=== PATIENT | male | born 1980 | race Caucasian/White ===

== ENCOUNTER 2019-01-10 19:51 | Inpatient (IN) ==
--- NOTE | 2019-01-10 20:19 | XRay Report ---
XR chest 1V portable CLINICAL HISTORY: chest pain pain COMPARISON STUDY: No previous studies for comparison. FINDINGS: The bones soft tissues and hemidiaphragms are normal. The cardiomediastinal silhouette is n ormal. The lungs are clear. The pulmonary vasculature is normal. IMPRESSION: Negative chest. The above report was generated using voice recognition software. It may contain grammatical, syntax or spelling errors. Electronically signed by: Torsten Boston M.D. 01/10/2019 8:18 PM
[2019-01-10] MEDS ORDERED: MoRPHine SULFATE 4 MG/ML 1 ML CARP\\VIAL IV STA (20:23)
[2019-01-10] MEDS ORDERED: ONDANSETRON INJ 2 MG/ML 2 ML VIAL IV STA (20:23)
[2019-01-10] MEDS ORDERED: ACETAMINOPHEN 1,000 MG/100 ML VIAL IV STA (20:23)
[2019-01-10 20:24] LABS: Basophils # (auto) 0.02 K/uL (0-0.2); Basophils % (auto) 0.3 %; Eosinophils # (auto) 0.14 K/uL (0-0.5); Eosinophils % (auto) 1.9 %; Hematocrit (blood only) 37.5 % (42-52); Hemoglobin 13.2 g/dL (14.0-18.0); Immature Granulocytes # (auto) 0.02 K/uL (0.00-0.02); Immature Granulocytes % (auto) 0.3 %; Lymphocytes # (auto) 2.62 K/uL (1.2-3.4); Mean Corpuscular Hgb Conc 35.2 g/dL (32-36); Mean Corpuscular Volume 88.9 fL (80-100); Mean Platelet Volume 11.1 fL (7.4-10.4); Monocytes # (auto) 0.44 K/uL (0.11-0.59); Neutrophils # (auto) 4.04 K/uL (1.4-6.5); Neutrophils % (auto) 55.5 %; Platelet Count 160 K/uL (130-400); RDW Coefficient of Variation 12.9 % (11.5-14.5); RDW Standard Deviation 41.6 fL (36.4-46.3); Red Blood Count 4.22 M/uL (4.7-6.1); White Blood Count 7.28 K/uL (4.8-10.8)
[2019-01-10] MEDS ORDERED: SODIUM CHLORIDE 0.9% 500 ML IV SCH (20:30)
[2019-01-10 20:33] LABS: Partial Thromboplastin Ratio 0.9; Partial Thromboplastin Time 24.6 Seconds (21.0-31.0); Prothrombin Time 10.7 Seconds (9.0-12.0)
[2019-01-10 20:55] LABS: Albumin Level 3.9 gm/dl (3.4-5.0); Aspartate Aminotransferase 25 U/L (15-37); BUN Creatinine Ratio 20.8 (10-20); Blood Urea Nitrogen 24 mg/dl (7-18); Calcium 9.1 mg/dl (8.5-10.1); Carbon Dioxide 22 mmol/L (21-32); Chloride 109 mmol/L (98-107); Creatinine Clr Calc Pharmacy 100.7 ml/min; Est GFR (African American) 93.4; Est GFR (Non-African American) 80.6; Glucose 101 mg/dl (70-99); Sodium 140 mmol/L (136-145)
[2019-01-10 21:00] LABS: Alanine Aminotransferase 39 U/L (12-78); Alkaline Phosphatase 113 U/L (45-117); Bilirubin,Total 0.2 mg/dl (0.2-1); Globulin 3.8 gm/dl (2.5-4.0); Total Protein 7.7 gm/dl (6.4-8.2); Troponin I < 0.015 ng/ml (0-0.045)
[2019-01-10] MEDS ORDERED: OPTIRAY 320 125ml IV PRN (21:17)
--- NOTE | 2019-01-10 21:26 | CT Scan Report ---
CT angio chest PE protocol CT DOSE: 577.83 mGy.cm HISTORY: Chest pain. Dyspnea. Chest Pain, eval for PE, check aorta TECHNIQUE: Multiaxial CT images of the chest were performed following the intravenous administration of contrast to evaluate the pulmonary arteries. Maximal intensity projection images were also obtaine d. A dose lowering technique was utilized adhering to the principles of ALARA. COMPARISON STUDY: None FINDINGS: Thoracic aorta is normal in course and caliber. Pulmonary vasculature enhances appropriately. No major filling defect is appreciated. Moderate mediastinal and hilar adenopathy. Aortopulmonary nodes measure up to 1.5 cm. Precarinal node s measure up to 1.4 cm. Additional nodes are identified in the azygos esophageal recess and subcarina l regions. Shotty nodes are identified in the high axillary regions bilaterally. Lungs are considered clear. No focal infiltrative change. Minimal dependent basilar atelectatic perez e. Limited evaluation the upper abdomen is unremarkable. IMPRESSION: 1. Study is negative for pulmonary embolus. 2. Moderate mediastinal, hilar, and high axillary adenopathy. 3. These nodes should be closely monitored to exclude any possibility of developing neoplastic prema pathology. The above report was generated using voice recognition software. It may contain grammatical, syntax or spelling errors. Electronically signed by: Torsten Boston M.D. 01/10/2019 9:25 PM
[2019-01-10] MEDS ORDERED: methylPREDNISolone 60 MG in SYRINGE 1 ML IV STA (22:30)
[2019-01-10] MEDS ORDERED: ALBUT/IPRATROP 3MG/0.5MG NEB 3 ML VIAL NEB STA (22:30)
[2019-01-10] MEDS ORDERED: cefTRIAXone SODIUM 1,000 MG/50 ML BAG IV STA (22:30)
[2019-01-10] MEDS ORDERED: methylPREDNISolone 125 MG/2 ML VIAL ONE (22:34)
[2019-01-10 22:46] LABS: Troponin I < 0.015 ng/ml (0-0.045)
[2019-01-10] MEDS ORDERED: POTASSIUM CHLORIDE 20 MEQ TABCR PO STA (23:41)
[2019-01-10] MEDS ORDERED: NALOXONE HCL 0.4 MG/1 ML VIAL/CARP IV STA (23:53)
[2019-01-10] MEDS ORDERED: NALOXONE HCL 0.4 MG/1 ML VIAL/CARP ONE (23:53)
[2019-01-11 00:01] LABS: Magnesium 2.2 mg/dl (1.8-2.4)
--- NOTE | 2019-01-11 00:07 | Emergency Department Note ---
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 Methadone, Qual (Neg) Urine Barbiturates (Neg) Ur Phencyclidine (PCP) (Neg) U Amphetamin/Meth Scrn (Neg) MDMA (Ecstasy) Screen (Neg) U Benzodiazepines Scrn (Neg) Ur Cocaine Metabolite (Neg) U Marijuana (THC) Screen (Neg) Ethyl Alcohol mg/dL 121.1 H (0-3) mg/dl Influenza Type A (PCR) (Neg) Influenza Type B (PCR) (Neg) 01/11/19 01/11/19 01/11/19 Range/Units 04:15 04:20 06:03 WBC 3.82 L (4.8-10.8) K/uL RBC 4.18 L (4.7-6.1) M/uL Hgb 12.9 L (14.0-18.0) g/dL Hct 37.3 L (42-52) % MCV 89.2 (80-100) fL MCH 30.9 (25-34) pg MCHC 34.6 (32-36) g/dL RDW Std Deviation 42.9 (36.4-46.3) fL RDW Coeff of Ryan 13.2 (11.5-14.5) % Plt Count 162 (130-400) K/uL MPV 10.5 H (7.4-10.4) fL Immature Gran % (Auto) 0.3 % Neut % (Auto) 82.6 % Lymph % (Auto) 15.7 % [place] % (Auto) 0.8 % Eos % (Auto) 0.3 % Baso % (Auto) 0.3 % Immature Gran # (Auto) 0.01 (0.00-0.02) K/uL Neut # (Auto) 3.16 (1.4-6.5) K/uL Lymph # (Auto) 0.60 L (1.2-3.4) K/uL [place] # (Auto) 0.03 L (0.11-0.59) K/uL Eos # (Auto) 0.01 (0-0.5) K/uL Baso # (Auto) 0.01 (0-0.2) K/uL PT (9.0-12.0) Seconds INR (0.9-1.1) APTT (21.0-31.0) Seconds PTT Ratio ABG pH (7.35-7.45) ABG pCO2 (35-46) mmHg ABG pO2 (80-95) mm/Hg ABG HCO3 (19-24) mmol/L ABG O2 Saturation (90-95) % ABG Base Excess (-9-1.8) mEq/L Bob Test (Pos) Barometric Pressure mm/Hg Oxygen Given Sodium (136-145) mmol/L Potassium (3.5-5.1) mmol/L Chloride (98-107) mmol/L Carbon Dioxide (21-32) mmol/L Anion Gap (3-11) BUN (7-18) mg/dl Creatinine (0.6-1.4) mg/dl Est Cr Clr Drug Dosing ml/min Est GFR ( Amer) Est GFR (Non-Af Amer) BUN/Creatinine Ratio (10-20) Glucose (70-99) mg/dl Lactate (0.4-2.0) mmol/L Calcium (8.5-10.1) mg/dl Magnesium (1.8-2.4) mg/dl Total Bilirubin (0.2-1) mg/dl AST (15-37) U/L ALT (12-78) U/L Alkaline Phosphatase (45-117) U/L Ammonia (11-32) umol/L Troponin I (0-0.045) ng/ml Total Protein (6.4-8.2) gm/dl Albumin (3.4-5.0) gm/dl Globulin (2.5-4.0) gm/dl Albumin/Globulin Ratio (0.9-2) Lipase (73-393) U/L Urine Color Urine Appearance (Clear) Urine pH (4.5-7.5) Ur Specific [place] (1.000-1.030) Urine Protein (Negative) Urine Glucose (UA) (Negative) Urine Ketones (Negative) Urine Blood (Negative) Urine Nitrite (Negative) Urine Bilirubin (Negative) Urine Urobilinogen (Negative) Ur Leukocyte Esterase (Negative) Urine Opiates Screen Pos H (Neg) Ur Methadone, Qual Neg (Neg) Urine Barbiturates Neg (Neg) Ur Phencyclidine (PCP) Neg (Neg) U Amphetamin/Meth Scrn Neg (Neg) MDMA (Ecstasy) Screen Pos H (Neg) U Benzodiazepines Scrn Neg (Neg) Ur Cocaine Metabolite Neg (Neg) U Marijuana (THC) Screen Pos H (Neg) Ethyl Alcohol mg/dL (0-3) mg/dl Influenza Type A (PCR) Neg for Influ A (Neg) Influenza Type B (PCR) Neg for Influ B (Neg) 01/11/19 01/11/19 01/11/19 Range/Units 06:03 06:09 06:09 WBC (4.8-10.8) K/uL RBC (4.7-6.1) M/uL Hgb (14.0-18.0) g/dL Hct (42-52) % MCV (80-100) fL MCH (25-34) pg MCHC (32-36) g/dL RDW Std Deviation (36.4-46.3) fL RDW Coeff of Ryan (11.5-14.5) % Plt Count (130-400) K/uL MPV (7.4-10.4) fL Immature Gran % (Auto) % Neut % (Auto) % Lymph % (Auto) % [place] % (Auto) % Eos % (Auto) % Baso % (Auto) % Immature Gran # (Auto) (0.00-0.02) K/uL Neut # (Auto) (1.4-6.5) K/uL Lymph # (Auto) (1.2-3.4) K/uL [place] # (Auto) (0.11-0.59) K/uL Eos # (Auto) (0-0.5) K/uL Baso # (Auto) (0-0.2) K/uL PT (9.0-12.0) Seconds INR (0.9-1.1) APTT (21.0-31.0) Seconds PTT Ratio ABG pH 7.34 L (7.35-7.45) ABG pCO2 45 (35-46) mmHg ABG pO2 120 H (80-95) mm/Hg ABG HCO3 24 (19-24) mmol/L ABG O2 Saturation 98.3 H (90-95) % ABG Base Excess -2.2 (-9-1.8) mEq/L Bob Test Pos (Pos) Barometric Pressure 731.4 mm/Hg Oxygen Given 2.5L Sodium 139 (136-145) mmol/L Potassium 5.0 D (3.5-5.1) mmol/L Chloride 109 H (98-107) mmol/L Carbon Dioxide 23 (21-32) mmol/L Anion Gap 7.0 (3-11) BUN 17 (7-18) mg/dl Creatinine 0.95 (0.6-1.4) mg/dl Est Cr Clr Drug Dosing 114.1 ml/min Est GFR ( Amer) 116.4 Est GFR (Non-Af Amer) 100.4 BUN/Creatinine Ratio 18.0 (10-20) Glucose 141 H (70-99) mg/dl Lactate (0.4-2.0) mmol/L Calcium 9.0 (8.5-10.1) mg/dl Magnesium (1.8-2.4) mg/dl Total Bilirubin 0.1 L (0.2-1) mg/dl AST 20 (15-37) U/L ALT 34 (12-78) U/L Alkaline Phosphatase 111 (45-117) U/L Ammonia 26.8 (11-32) umol/L Troponin I (0-0.045) ng/ml Total Protein 7.7 (6.4-8.2) gm/dl Albumin 3.7 (3.4-5.0) gm/dl Globulin 4.0 (2.5-4.0) gm/dl Albumin/Globulin Ratio 0.9 (0.9-2) Lipase (73-393) U/L Urine Color Urine Appearance (Clear) Urine pH (4.5-7.5) Ur Specific [place] (1.000-1.030) Urine Protein (Negative) Urine Glucose (UA) (Negative) Urine Ketones (Negative) Urine Blood (Negative) Urine Nitrite (Negative) Urine Bilirubin (Negative) Urine Urobilinogen (Negative) Ur Leukocyte Esterase (Negative) Urine Opiates Screen (Neg) Ur Methadone, Qual (Neg) Urine Barbiturates (Neg) Ur Phencyclidine (PCP) (Neg) U Amphetamin/Meth Scrn (Neg) MDMA (Ecstasy) Screen (Neg) U Benzodiazepines Scrn (Neg) Ur Cocaine Metabolite (Neg) U Marijuana (THC) Screen (Neg) Ethyl Alcohol mg/dL (0-3) mg/dl Influenza Type A (PCR) (Neg) Influenza Type B (PCR) (Neg) Imaging Data Radiologist's Impression: Radiology results as stated below per my review and the radiologist's interpretation: XR chest 1V portable CLINICAL HISTORY: chest pain pain COMPARISON STUDY: No previous studies for comparison. FINDINGS: The bones soft tissues and hemidiaphragms are normal. The cardiomediastinal silhouette is normal. The lungs are clear. The pulmonary vasculature is normal. IMPRESSION: Negative chest. The above report was generated using voice recognition software. It may contain grammatical, syntax or spelling errors. Electronically signed by: Torsten Boston M.D. 01/10/2019 8:[address]: IMPRESSION: 1. Study is negative for pulmonary embolus. 2. Moderate mediastinal, hilar, and high axillary adenopathy. 3. These nodes should be closely monitored to exclude any possibility of de veloping neoplastic prema pathology. The above report was generated using voice recognition software. It may contain grammatical, syntax or spelling errors. Electronically signed by: Torsten Boston M.D. 01/10/2019 9:25 PM ECG Data Attestation: I personally reviewed and interpreted this ECG as follows: Indication: chest pain Rate (beats per minute): 84 Rhythm: normal sinus Findings: no PVC and no ST elevation Blood Pressure Blood Pressure Findings: Normal blood pressure Blood Pressure Disposition: did not require urgent referral MDM Narrative There is no leukocytosis or concerning anemia. No coagulopathy. Potassium is slightly low, no kidney failure. There is no evidence for hepatitis. EKG showed a sinus rhythm, no acute ischemia. Cardiac enzyme testing x2 is not consistent with acute cardiac injury. Lipase testing is normal. Chest x-ray did not show pneumonia or CHF, no pneumothorax. Chest CT shows moderate adenopathy. There was no evidence for aortic dissection, pneumonia or PE. The patient received a DuoNeb, IV Solu-Medrol. He was given IV ceftriaxone as antibiotic coverage. He received IV Zofran for nausea, IV saline for hydration, he was given IV morphine for pain control. He also received IV Tylenol. The patient did become hypoxic while here, he required nasal cannula O2 supplementation. I think the patient's chest pain is likely musculoskeletal and/or related to the adenopathy. He may have bronchitis. Certainly sarcoidosis or even lymphoma must be considered. Further workup in the hospital is warranted. I spoke to the patient and supervisor case loading. The on-call hospitalist was consulted. Impression & Plan Hypoxia, Chest pain, Bilateral wheezing, Abnormal chest CT Discharge Plan Visit Data *Final* Discharge Date/Time: 01/11/19 02:30 Chief Complaint: Chest Pain Stated Complaint: CHEST PAIN ED Provider: Avery Miner Discharge Problem: Hypoxia, Chest pain, Bilateral wheezing, Abnormal chest CT Patient Disposition: Being Evaluated by Hospitalist Discharge Instructions Interventions: ED Discharge Assessment Last Done: 01/11/19 02:30 Discharge Problem: Chest pain Qualifiers: Chest pain type: precordial pain Qualified Code(s): R07.2 - Precordial pain The scribe's documentation has been prepared under my direction and personally reviewed by me in its entirety. I confirm that the note above accurately reflects all work, treatment, procedures, and medical decision making performed by me.
[2019-01-11 00:18] LABS: HCO3 ABG 28 mmol/L (19-24); Oxygen Saturation ABG 99.4 % (90-95); PCO2 ABG 68 mmHg (35-46); PO2 ABG 204 mm/Hg (80-95); pH ABG 7.23 (7.35-7.45)
[2019-01-11 00:19] LABS: Allen Test POS (Pos)
[2019-01-11] MEDS ORDERED: CELECOXIB 100 MG CAP PO STA (00:57)
[2019-01-11] MEDS ORDERED: LACTULOSE SYRUP 20 GM/30 ML UDC PO STA (00:59)
[2019-01-11] MEDS ORDERED: PROCHLORPERAZINE 5 MG in SYRINGE 4 ML IV PRN ×2 (01:16→02:54)
[2019-01-11] MEDS ORDERED: LACTULOSE SYRUP 30 GM/45 ML UDP PO STA (02:28)
[2019-01-11] MEDS ORDERED: LACTATED RINGER'S 1,000 ML IV ONE (02:54)
[2019-01-11] MEDS ORDERED: DESMOPRESSIN ACETATE 0.1 MG TAB PO SCH (02:54)
[2019-01-11] MEDS ORDERED: XOPENEX/ATROVENT 1.25mg/0.5MG NEB COMBO NEB SCH (02:54)
[2019-01-11] MEDS ORDERED: LORazepam 0.25 MG/0.5 ML VIAL IV PRN (02:54)
[2019-01-11] MEDS ORDERED: ACETAMINOPHEN 325 MG TAB PO PRN (02:54)
[2019-01-11] MEDS: NICOTINE 21 MG/24 HR TDSY TD SCH ×2 (03:21→06:55)
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
[2019-01-11 04:29] LABS: Appearance Urine Clear (Clear); Bilirubin Urine Negative (Negative); Blood Urine Negative (Negative); Color Urine Yellow; Glucose Urine UA Negative (Negative); Ketones Urine Negative (Negative); Leukocyte Esterase Urine Negative (Negative); Nitrite Urine Negative (Negative); Protein Urine Negative (Negative); Specific Gravity Urine 1.035 (1.000-1.030); Urobilinogen Urine Negative (Negative); pH Urine 5.5 (4.5-7.5)
[2019-01-11 05:01] LABS: Amphetamines+Metham, Urine Neg (Neg); Barbiturates, Urine Neg (Neg); Benzodiazepine, Urine Neg (Neg); Cocaine, Urine Neg (Neg); MDMA (Ecstacy), Urine Pos (Neg); Methadone, Urine Neg (Neg); Opiate, Urine Pos (Neg); Phencyclidine, Urine Neg (Neg)
[2019-01-11 05:18] LABS: Influenza A virus by PCR Neg for Influ A (Neg); Influenza B virus by PCR Neg for Influ B (Neg)
[2019-01-11 06:20] LABS: HCO3 ABG 24 mmol/L (19-24); Oxygen Saturation ABG 98.3 % (90-95); PCO2 ABG 45 mmHg (35-46); PO2 ABG 120 mm/Hg (80-95); pH ABG 7.34 (7.35-7.45)
[2019-01-11 06:21] LABS: Allen Test Pos (Pos)
[2019-01-11 06:29] LABS: Basophils # (auto) 0.01 K/uL (0-0.2); Basophils % (auto) 0.3 %; Eosinophils # (auto) 0.01 K/uL (0-0.5); Eosinophils % (auto) 0.3 %; Hematocrit (blood only) 37.3 % (42-52); Hemoglobin 12.9 g/dL (14.0-18.0); Immature Granulocytes # (auto) 0.01 K/uL (0.00-0.02); Immature Granulocytes % (auto) 0.3 %; Lymphocytes % (auto) 15.7 %; Mean Corpuscular Hgb Conc 34.6 g/dL (32-36); Mean Corpuscular Volume 89.2 fL (80-100); Mean Platelet Volume 10.5 fL (7.4-10.4); Monocytes # (auto) 0.03 K/uL (0.11-0.59); Monocytes % (auto) 0.8 %; Neutrophils # (auto) 3.16 K/uL (1.4-6.5); Neutrophils % (auto) 82.6 %; Platelet Count 162 K/uL (130-400); RDW Coefficient of Variation 13.2 % (11.5-14.5); RDW Standard Deviation 42.9 fL (36.4-46.3); Red Blood Count 4.18 M/uL (4.7-6.1); White Blood Count 3.82 K/uL (4.8-10.8)
--- NOTE | 2019-01-11 07:01 | CT Scan Report ---
CT OF THE ABDOMEN AND PELVIS WITHOUT CONTRAST CLINICAL HISTORY: Abdominal pain. COMPARISON STUDY: No previous studies for comparison. TECHNIQUE: Axial images of the abdomen and pelvis were obtained without IV contrast. Images were revi ewed in the axial, sagittal, and coronal planes. Automated exposure control was utilized for the mansi dy. A dose lowering technique was utilized adhering to the principles of ALARA. FINDINGS: There is contrast within the collecting systems, ureters and bladder from recent contrast-e nhanced CT. Evaluation of the abdomen and pelvis is suboptimal on this unenhanced examination. The li libia, spleen, adrenal glands and pancreas are normal. There is no evidence for a bowel obstruction. Th e appendix is normal. There is no hydronephrosis. There is no peripancreatic or pericholecystic infil tration. The appendix is normal. No bowel wall thickening is identified on this unenhanced examinatio n. No suspicious skeletal lesions are present. Sensitivity for detection of urinary calculi is dimini shed given excretion of contrast from recent contrast-enhanced CT. IMPRESSION: 1. No acute process within the abdomen or pelvis on unenhanced exam. Normal appendix. No bowel obstru ction. 2. Excreted contrast within the collecting systems, ureters and bladder which decreases sensitivity f or urinary calculi. No hydronephrosis. Electronically signed by: Kevin Barrett M.D. 01/11/2019 6:59 AM
[2019-01-11 07:02] LABS: Albumin Globulin Ratio 0.9 (0.9-2); Albumin Level 3.7 gm/dl (3.4-5.0); Bilirubin,Total 0.1 mg/dl (0.2-1); Creatinine Clr Calc Pharmacy 114.1 ml/min; Est GFR (African American) 116.4; Est GFR (Non-African American) 100.4; Total Protein 7.7 gm/dl (6.4-8.2)
[2019-01-11] MEDS: LEVALBUTEROL 1.25MG/0.5ML NEB INH SCH ×3 (07:04→19:48)
[2019-01-11] MEDS: IPRATROPIUM BROMIDE NEB SOLN 0.02% 2.5 ML VIAL INH SCH ×3 (07:04→19:48)
--- NOTE | 2019-01-11 07:20 | XRay Report ---
LEFT SHOULDER 3 VIEWS CLINICAL HISTORY: Left shoulder pain. FINDINGS: 3 views of the left shoulder are obtained. No prior studies are available for comparison at the time of dictation. The skeletal structures are well mineralized. No fracture or dislocation is s een. Mild productive degenerative change is seen at the acromioclavicular joint. The glenohumeral arina nt is preserved. The overlying soft tissues are normal in appearance. The visualized left lung parenc hyma appears clear. IMPRESSION: No acute bony abnormality is identified. Electronically signed by: Avery Marcelino M.D. 01/11/2019 7:19 AM
--- NOTE | 2019-01-11 07:22 | XRay Report ---
RIGHT SHOULDER 3 VIEWS CLINICAL HISTORY: Right shoulder pain. FINDINGS: 3 views of the right shoulder are obtained. No prior studies are available for comparison a t the time of dictation. The skeletal structures are well mineralized. No fracture or dislocation is seen. Mild productive degenerative change is seen at the acromioclavicular joint. The glenohumeral tammy int is preserved. The overlying soft tissues are normal in appearance. The visualized right lung pare nchyma appears clear. IMPRESSION: No acute bony abnormality is identified. Electronically signed by: Avery Marcelino M.D. 01/11/2019 7:20 AM
[2019-01-11] MEDS: OXYCODONE HCL IR 5 MG TAB (IMMEDIATE RELEASE) PO PRN ×2 (08:25→12:58)
[2019-01-11] MEDS: DOXYCYCLINE HYCLATE 100 MG CAP PO SCH ×2 (08:29→19:54)
[2019-01-11] MEDS ORDERED: GABAPENTIN 300 MG CAP PO SCH (09:00)
[2019-01-11] MEDS ORDERED: ATOMOXETINE HCL 40 MG CAPSULE PO SCH (09:00)
[2019-01-11] MEDS ORDERED: ENOXAPARIN INJ 40 MG/0.4 ML SYR SQ SCH (09:00)
[2019-01-11] MEDS ORDERED: PARoxetine HCl 20 MG TAB PO SCH (09:00)
[2019-01-11] MEDS ORDERED: PANTOprazole 40 MG TAB PO SCH (09:00)
[2019-01-11] MEDS ORDERED: BuPROPion XL 300 MG TABCR PO SCH (09:00)
[2019-01-11] MEDS ORDERED: AMLODIPINE BESYLATE 5 MG TAB PO SCH (09:00)
[2019-01-11] MEDS ORDERED: predniSONE 20 MG TAB PO SCH (09:00)
[2019-01-11] MEDS ORDERED: LISINOPRIL 20 MG TAB PO SCH (09:00)
--- NOTE | 2019-01-11 09:58 | Gastrointestinal Consultation ---
Date of Consultation January 11, 2019 Assessment & Plan (1) Serum ammonia increased: Not significant in this pt who does not have cirrhosis and denies having had confusion at the time that the ammonia was drawn. This does not have the typical characterists of hepatic encephalopathy which is present as a complication of cirrhosis abd there is no suggestion of cirrhosis on imaging or labs in this pt. Recommend OP GI f/u (pt prefers [facility]) to address GERD and fatty liver. Appt made for: March 15 12:45PM and appt with myself (ABE Peterson) Present on Admission?: Yes (2) GERD (gastroesophageal reflux disease): Continue daily omeprazole. Will address at OP appt. Present on Admission?: Yes Supervising Physician Co-Signing Physician Notes Attg add: I interviewed and examined pt, reviewed chart and labs. We are consulted for elevated ammonia. It is not clear why this was checked; I could not find any description of confusion in the ER nursing or physician notes, and pt does not have a know h/o liver disease, although he does report EtOH intake of 1-2 drinks/day and has risk fx for NAFLD. Pt presented to hospital c/o chest pain and cough, and was admitted for hypoxemia. Review of his non contrast abdominal imaging, which was done for report of epigastric tenderness, is unremarkable. Labs show normal AST/ALT ratio normal bili and INR, plt count in the 160's. His ammonia level is now normal. 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 Cause of transient hyperammonemia is unclear (cigarette smoking?) but he does not have any clinical evidence fo support dx of hepatic encephalopathy. Will sign off, please reconsult as needed. History of Present Illness Reason for Consultation: elevated ammonia, fatty liver Requesting Physician: Dr. Baez Attending Physician: Torri Kaur MD History of Present Illness Mr. Eleazar Medel is a 38 yr old male pt with a hx of asthma, GERD who presented for chest pain and is being tx for a respiratory infection. GI is consulted for elevated ammonia level and fatty liver. Additionally, the pt reports a long hx of reflux but has symptoms only if he misses a dose of omeprazole. On arrival, and this morning 26. LFTs are normal. Non contrast CT w/o any mention of liver abnormalities (though would need IV contrast to dx fatty liver). There is a record of a prior US in the [facility] records showing fatty liver. The pt reports drinking about 1-2 beers/day plus drinks "many" drinks when out with his friends though says this is only a few times/yr. He denies any jaundice or icterus. No pruritis. No abdominal pain. No recent unexplained weight loss. He does have a family hx of cirrhosis: grandfather but he was a "big drinker." Allergies Allergy/AdvReac Type Severity Reaction Status Date / Time No Known Allergies Allergy Verified 01/10/19 23:16 Home Medications Home Medications Medication Instructions Recorded Confirmed Type albuterol sulfate [ProAir HFA] 2 puff INHALATION UD PRN 01/10/19 01/10/19 History amlodipine [Norvasc] 5 mg PO DAILY 01/10/19 01/10/19 History atomoxetine [Strattera] 40 mg PO DAILY 01/10/19 01/10/19 History bupropion HCl [Wellbutrin XL] 300 mg PO DAILY 01/10/19 01/10/19 History buspirone 5 mg PO BID 01/10/19 01/10/19 History celecoxib [Celebrex] 100 mg PO DAILY 01/10/19 01/10/19 History cyclobenzaprine 10 mg PO HS PRN 01/10/19 01/10/19 History desmopressin [DDAVP] 0.2 mg PO HS 01/10/19 01/10/19 History gabapentin [Neurontin] 300 mg PO BID 01/10/19 01/10/19 History lisinopril [Zestril] 20 mg PO DAILY 01/10/19 01/10/19 History omeprazole 20 mg PO BID 01/10/19 01/10/19 History paroxetine HCl [Paxil] 30 mg PO DAILY 01/10/19 01/10/19 History trazodone 150 mg PO HS 01/10/19 01/10/19 History doxycycline hyclate 100 mg PO BID 6 Days #12 cap 01/11/19 Rx prednisone 40 mg PO DAILY 5 Days #10 tab 01/11/19 Rx Patient History Medical History Asthma Social History Preferred Language: Bulgarian Communication Ability: Effective 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 Beliefs That Will Affect Care: None Current Living Situation: Other Current Living Situation Comment: Friend/rooomate current occupational status: employed Other Information That Helps Us Care for You: No Feels Safe at Home: Yes Safety Concerns: Feels Safe At This Time Smoking Status: Current every day smoker Tobacco Type: cigarettes Cigarettes Per Day: 20 Do You Dip or Chew Tobacco: No Tobacco Cessation Education Requested by Patient: No Hx Alcohol Use: Yes Alcohol type: beer and hard liquor Hx Substance Use: No Review of Systems Constitutional: + fatigue; no fever and no chills Ear, Nose, Mouth, Throat: no tinnitus, no dizziness and no pain with swallowing Respiratory: + cough and + chest congestion Cardiovascular: + chest pain; no syncope and no edema Gastrointestinal: no abdominal pain, no nausea, no vomiting, no hematemesis and no constipation Musculoskeletal: no back pain and no joint pain Integumentary: no rash and no lesions Neurologic: + confusion (had one episode in November during an episode of HTN, seen in ED in [facility]); no tremor(s) and no syncope Psychiatric: no depression, no change in appetite and no panic attacks Endocrine: no fatigue, no polydipsia, no polyphagia and no polyuria Physical Exam Constitutional: WD/WN, vitals as above no acute distress overweight Eyes: PERRL, conjunctivae normal, anicteric sclerae ENMT: external ear and nose normal, oropharynx normal Neck: trachea midline, no thyromegaly Respiratory: normal respiratory effort, lungs clear to auscultation (decreased at bases; coughing during the exam) Cardiovascular: RRR, no murmur, no edema Gastrointestinal (Abdomen): normal bowel sounds, soft, nontender, no hepatosplenomegaly Musculoskeletal: no cyanosis or clubbing, extremities motor strength 5/5 Skin: no rashes, warm and dry no jaundice Neurologic: PERRL, EOMI, accommodation nl, no face palsy, no dysarthria Psychiatric: A+Ox3, euthymic affect Lymphatic: no cervical or axillary lymphadenopathy Results & Data Vital Signs (Past 12 Hours) Vital Signs Temp Pulse Pulse Resp BP BP Pulse Ox 01/11/19 08:09 76 18 97 01/11/19 07:20 36.3 C L 96 H 18 114/72 99 04/18/19 03:11 01/11/19 03:10 01/11/19 02:50 36.6 C 88 18 126/84 97 01/11/19 02:30 80 18 125/76 97 01/11/19 02:00 84 18 114/67 93 01/11/19 01:31 78 14 111/73 96 01/11/19 01:30 74 13 98 01/11/19 01:01 78 12 111/68 97 01/11/19 00:33 80 18 120/80 94 01/11/19 00:01 78 17 116/81 100 01/10/19 23:35 81 18 97 01/10/19 23:31 83 17 119/67 85 L 01/10/19 23:05 73 18 110/68 96 01/10/19 23:01 72 20 110/68 100 01/10/19 22:17 80 18 91/68 L 94 Pulse Ox 01/11/19 08:09 01/11/19 07:20 01/11/19 03:11 94 01/11/19 03:10 82 L 01/11/19 02:50 01/11/19 02:30 01/11/19 02:00 01/11/19 01:31 01/11/19 01:30 01/11/19 01:01 01/11/19 00:33 01/11/19 00:01 01/10/19 23:35 01/10/19 23:31 01/10/19 23:05 01/10/19 23:01 01/10/19 22:17 Diagnostic Findings Non contrast CT abd/pelvis on 01/11/19: There is contrast within the collecting systems, ureters and bladder from recent contrast-enhanced CT. Evaluation of the abdomen and pelvis is suboptimal on this unenhanced examination. The liver, spleen, adrenal glands and pancreas are normal. There is no evidence for a bowel obstruction. The appendix is normal. There is no hydronephrosis. There is no peripancreatic or pericholecystic infiltration. The appendix is normal. No bowel wall thickening is identified on this unenhanced examination. No suspicious skeletal lesions are present. Sensitivity for detection of urinary calculi is diminished given excretion of contrast from recent contrast-enhanced CT.
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
--- NOTE | 2019-01-11 19:27 | Hospitalist Progress Note ---
Date of Service January 11, 2019 Assessment & Plan (1) Chest pain: Present on admission with chest pain Describes it as pleuritic CXR on admission negative CT chest showed negative for pulmonary embolus Troponin on admission negative (2) Acute hypoxemic respiratory failure: Possible related to Bronchitis CT chest showed negative for pulmonary embolus. Moderate mediastinal, hilar, and high axillary adenopathy. Received Rocephin IV and Solumedrol in the ER Starting on doxy and prednisone Will give 5 days course of abx since the adenopathy might be reactive due to acute illness Pulmonology on board recommended to repeat CT chest in 3months Angiotensin converting enzyme level pending Spirometry showed normal study Since pt wants to go home, will discharge on prednisone and doxycycline Follow up with pulmonology (3) Serum ammonia increased: No symptoms of confusion Ammonia level elevate on admission, then trending down to normal No evidence of cirrhosis on imaging Recommend OP GI f/u (pt prefers [facility]) to address GERD and fatty liver. Appt made for: March 15 12:45PM and appt with ABE Peterson) Bilateral shoulder pain Xray both shoulders showed no fracture HTN BP stable Continue metoprolol Anxiety/mood disorder/ADD Countinue current therapy Stable Nocturnal Enuresis on DDAVP Tobacco abuse Counseling on smoking cessation DVT px on Lovenox CODE STATUS FULL CODE Disposition Discharge home today Subjective Pt seen and examined Lying in bed with no distress Pt said that he feels fine He is saturated well on RA Pt does not want to stay in the hospital for another night He is very anxious to go today he said that he has been working every day for the past 17 days Denies any chest pain, palpitation and SOB Physical Exam Physical Exam: General- No acute distress Head- atraumatic Eyes- PERRL, EOMI, ENT- oropharynx clear Neck- supple, no JVD Lungs- +mild course BS Heart- regular rhythm; no murmur Abdomen- normal bowel sounds, soft, nontender Extremities- no calf tenderness Neuro- alert, oriented x 3; PERRL, EOMI; no facial palsy; no dysarthria Skin- warm & dry Results & Data Vital Signs (Past 12 Hours) Vital Signs Temp Pulse Resp BP Pulse Ox 01/11/19 15:00 36.5 C 118 H 18 136/78 96 04/18/19 14:16 105 H 18 98 04/18/19 11:00 36.5 C 95 H 18 145/84 H 95 01/11/19 08:09 76 18 97 01/11/19 07:20 36.3 C L 96 H 18 114/72 99 (1) Chest pain Chest pain type: precordial pain Qualified Code(s): R07.2 - Precordial pain
[2019-01-11] MEDS ORDERED: TRAZODONE HCL 50 MG TAB PO SCH (21:00)
--- NOTE | 2019-01-13 01:21 | Pulmonary Function Test ---
Spirometry is normal. Repeat study done following bronchodilator showed mild but not significant improvement in function.
[2019-01-14 12:37] LABS: Hydrocodone Urine NEGATIVE NG/ML (CUTOFF=50); Hydromor Urine NEGATIVE NG/ML (CUTOFF=50); Marijuana Quant, GCMS Urine 34 NG/ML (CUTOFF=5); Morphine Urine 1020 NG/ML (CUTOFF=50); Norhydrocodone Conf Ur NEGATIVE NG/ML (CUTOFF=50); Noroxycodone Urine NEGATIVE NG/ML (CUTOFF=50); Oxycodone Urine NEGATIVE NG/ML (CUTOFF=50)
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
== END 2019-01-11 20:00 | disposition home or self-care (01) | DRG 202 ==
LOC: ED 19:51 → 2N 01-11 01:03
DX: E87.2 Acidosis; M25.512 Pain in left shoulder; R07.81 Pleurodynia; K21.9 Gastro-esophageal reflux disease without esophagitis; R10.816 Epigastric abdominal tenderness; J96.01 Acute respiratory failure with hypoxia; Z51.81 Encounter for therapeutic drug level monitoring; J40 Bronchitis, not specified as acute or chronic; F43.10 Post-traumatic stress disorder, unspecified; F17.210 Nicotine dependence, cigarettes, uncomplicated; F11.11 Opioid abuse, in remission; F98.8 Other specified behavioral and emotional disorders with onset usually occurring in childhood and adolescence; F40.00 Agoraphobia, unspecified; Z79.899 Other long term (current) drug therapy; E72.20 Disorder of urea cycle metabolism, unspecified; I10 Essential (primary) hypertension; K76.0 Fatty (change of) liver, not elsewhere classified; R59.0 Localized enlarged lymph nodes; M25.511 Pain in right shoulder; T40.2X5A Adverse effect of other opioids, initial encounter; N39.44 Nocturnal enuresis; J45.909 Unspecified asthma, uncomplicated; F32.9 Major depressive disorder, single episode, unspecified

== ENCOUNTER 2021-02-25 13:45 | Observation (INO) ==
[2021-02-25] MEDS ORDERED: SODIUM CHLORIDE 0.9% 1000ML 1,000 ML IV STA (14:33)
[2021-02-25] MEDS ORDERED: MoRPHine SULFATE 4 MG/ML 1 ML CARP\\VIAL IV STA (14:33)
[2021-02-25] MEDS ORDERED: ONDANSETRON INJ 2 MG/ML 2 ML VIAL IV STA (14:33)
[2021-02-25] MEDS ORDERED: PANTOPRAZOLE BOLUS/DRIP 1 EA IV STA (14:42)
[2021-02-25] MEDS ORDERED: PANTOprazole 80 MG in DEXTROSE 5% 100 ML IV ONE (14:42)
--- NOTE | 2021-02-25 14:59 | Emergency Department Note ---
History of Present Illness General Chief complaint: GI Assessment Stated complaint: COFFEE GROUND-LIKE STOOL Time Seen by Provider: 02/25/21 14:23 History of Present Illness 40-year-old male who presents to the emergency department with his with complaints of black tarry stool that looks like coffee grounds. The patient also reports epigastric pain and belching that the reports "smells horrible". The patient denies any alcohol or caffeine use. He has been using ibuprofen for his current pain, as well as history of chronic back pain. He has also been on several courses of corticosteroids for his back. The patient reports undergoing a radiofrequency abrasion of his lumbar spine at the [facility] in [place] approximately 1 year ago. He has had chronic back pain since that time. The patient denies any pain that is currently rating from the epigastric region into the back. He denies chest pain or shortness of breath. The patient does have a history of reflux, and is on twice daily pantoprazole, prescribed by his PCP. The patient denies any prior history of GI bleed or other GI disease. The patient rates his discomfort a 7 out of 10. He denies any alleviating or aggravating factors for the pain. The patient reports that the pain has been increasing in intensity over the past 3 days. Home Medications Medication Instructions Recorded Confirmed Type amlodipine 5 mg PO DAILY 02/25/21 02/25/21 History bupropion HCl 150 mg PO DAILY 02/25/21 02/25/21 History buspirone [BuSpar] 5 mg PO TID PRN 02/25/21 02/25/21 History fenofibrate [Lofibra] 160 mg PO DAILY 02/25/21 02/25/21 History fexofenadine 180 mg PO DAILY PRN 02/25/21 02/25/21 History fluticasone propionate [Flonase] 2 spray INTRANASAL DAILY 02/25/21 02/25/21 History gabapentin 300 mg PO BID 02/25/21 02/25/21 History ipratropium-albuterol [Combivent 1 puff INHALATION Q6H 02/25/21 02/25/21 History Respimat] lisinopril 20 mg PO DAILY 02/25/21 02/25/21 History montelukast 10 mg PO DAILY 02/25/21 02/25/21 History omeprazole 20 mg PO DAILY 02/25/21 02/25/21 History quetiapine 75 mg PO HS 02/25/21 02/25/21 History simvastatin 10 mg PO HS 02/25/21 02/25/21 History umeclidinium-vilanterol [Anoro 1 inh INHALATION DAILY 02/25/21 02/25/21 History Ellipta] Allergies Allergy/AdvReac Type Severity Reaction Status Date / Time No Known Allergies Allergy Verified 01/10/19 23:16 Past Med/Surg History Medical History ADHD Anxiety Asthma COPD (chronic obstructive pulmonary disease) GERD (gastroesophageal reflux disease) HLD (hyperlipidemia) HTN (hypertension) RADHA treated with BiPAP Tobacco abuse Surgical History History of back surgery History of hand surgery Family History Father Lymphoma Mother Alive and well Brother Diabetes Social History Smoking Status: Current every day smoker Years Smoked: 30; Cigarettes Per Day: 10; Hx Alcohol Use: Yes Alcohol type: beer and hard liquor Alcohol Intake Frequency: 2-4 x/Month Hx Substance Use: Yes Non-Prescribed Medications: IV Drugs and Marijuana Preferred Language: Yakut Communication Ability: Effective Business Banker Required: No Beliefs That Will Affect Care: None Current Living Situation: Other Current Living Situation Comment: Friend/rooomate current occupational status: employed Feels Safe at Home: Yes Assistive Devices: None Review of Systems 10 system review was performed and was negative except for pertinent positives and negatives as indicated in history of present illness Physical Exam Vital Signs Vital Signs - 24 hr 02/25/21 13:51 02/25/21 16:00 Temperature 36.9 C Temperature Source Oral Pulse Rate 62 Pulse Rate [Apical] 72 Pulse Rhythm [Apical] Regular Pulse Strength [Apical] Normal Respiratory Rate 20 18 Respiratory Effort / Characteristics Non-Labored Spontaneous Non-Labored Spontaneous Respiratory Depth Normal Normal Blood Pressure [Right Arm] 144/72 H Blood Pressure Mean [Right Arm] 96 Blood Pressure Position Sitting Pulse Oximetry 96 97 Oxygen Delivery Method Room Air Room Air Sepsis Recent Fever Within 48 Hours No Sepsis New/Unexplained Change in Mental Status No Sepsis Action Taken by Nursing No Action Required CONSTITUTIONAL: Healthy and well nourished. Patient appears in moderate discomfort. HEENT: Normocephalic, atraumatic. Pupils equal, round and reactive. No scleral icterus or conjunctival pallor. NECK: Full active range of motion without discomfort. LYMPHATICS: No cervical chain adenopathy. RESPIRATORY: Clear to auscultation bilaterally with no wheezing, crackles, rhonchi or stridor. CARDIOVASCULAR: Regular rate and rhythm with no murmurs, rubs or gallops. GASTROINTESTINAL: Bowel sounds present in all quadrants. Patient has notable epigastric tenderness to palpation. No lower abdominal tenderness to palpation, McBurney's point tenderness or CVA tenderness. No abdominal rigidity, guarding or rebound. MUSCULOSKELETAL: Full range of motion of all joints without discomfort. INTEGUMENTARY: No rash or other significant dermatologic conditions noted. HEMATOLOGIC: No ecchymosis or petechiae. PSYCHIATRIC: Positive affect. NEUROLOGIC: No focal neurologic deficits noted. Course Course Patient history and physical exam were performed. Nurses notes were reviewed. Vital signs were reviewed and were normal. IV access was established, and labs were drawn. The patient was hydrated with a liter normal saline, and administer ed IV morphine and Zofran for pain and nausea. The patient was also administered IV Protonix. An ECG was performed, showing an incomplete right bundle branch block, otherwise a normal sinus rhythm of 84 bpm. The patient was placed on desk monitor while in the emergency department. Review of labs shows a hemoglobin of 12 with normal creatinine, LFTs and coagulation studies. Glucose is elevated at 157. Troponin and lipase are normal. With the present, stool Hemoccult was collected and was positive. An abdomen obstruction series with a PA chest view does not show any obstructive findings or subdiaphragmatic air. At this point, I consulted the [facility]. The patient was also evaluated by ABE Bell ([facility]) in the emergency department, and indicated that they would perform an EGD tomorrow morning. Please see their dictations for further treatment and final disposition. The patient reported adequate pain and nausea control prior to patient transfer of care. COVID-19 screen was also performed and was negative. Administered Medications Pantoprazole Sodium 40 mg/ (Dextrose) 100 mls @ 20 mls/hr IV Q5H SONIA Stop: 03/27/21 14:56 Last Admin: 02/25/21 15:56 Dose: 8 mg/hr, 20 mls/hr Documented by: [id number] Discontinued Medications Sodium Chloride (Nss 1000ml) 1,000 mls @ 999 mls/hr IV .Q1H1M STA Stop: 02/25/21 15:33 Last Infusion: 02/25/21 16:23 Dose: 0 mls/hr Documented by: [id number] Admin: 02/25/21 15:19 Dose: 999 mls/hr Documented by: [id number] Pantoprazole Sodium 80 mg/ (Dextrose) 120 mls @ 400 mls/hr IV NOW ONE Stop: 02/25/21 14:59 Last Infusion: 02/25/21 15:56 Dose: 0 mls/hr Documented by: [id number] Admin: 02/25/21 15:20 Dose: 400 mls/hr Documented by: [id number] Morphine Sulfate (Morphine Sulfate 4 Mg/Ml 1 Ml Carp\\Vial) 4 mg IV NOW STA Stop: 02/25/21 14:34 Last Admin: 02/25/21 15:20 Dose: 4 mg Documented by: [id number] Ondansetron HCl (Ondansetron Inj 2 Mg/Ml 2 Ml Vial) 4 mg IV NOW STA Stop: 02/25/21 14:34 Last Admin: 02/25/21 15:20 Dose: 4 mg Documented by: [id number] Medical Decision Making Medical Records Attestation: I reviewed the patient's medical records. Home Medications Current Medication List: was personally reviewed by me Laboratory Data Attestation: I reviewed the patient's lab results. Result diagrams: 02/25/21 15:01 02/25/21 15:01 Lab Results 02/25/21 02/25/21 02/25/21 Range/Units 15:01 15:01 15:01 WBC 5.61 (4.8-10.8) K/uL RBC 3.89 L (4.7-6.1) M/uL Hgb 12.0 L (14.0-18.0) g/dL Hct 36.5 L (42-52) % MCV 93.8 (80-100) fL MCH 30.8 (25-34) pg MCHC 32.9 (32-36) g/dL RDW Std Deviation 44.4 (36.4-46.3) fL RDW Coeff of Ryan 13.0 (11.5-14.5) % Plt Count 171 (130-400) K/uL MPV 10.9 H (7.4-10.4) fL Immature Gran % (Auto) 0.5 % Neut % (Auto) 64.5 % Lymph % (Auto) 25.3 % Ray % (Auto) 7.7 % Eos % (Auto) 1.8 % Baso % (Auto) 0.2 % Neut # (Auto) 3.62 (1.4-6.5) K/uL Lymph # (Auto) 1.42 (1.2-3.4) K/uL Ray # (Auto) 0.43 (0.11-0.59) K/uL Eos # (Auto) 0.10 (0-0.5) K/uL Baso # (Auto) 0.01 (0-0.2) K/uL Immature Gran # (Auto) 0.03 H (0.00-0.02) K/uL PT 10.7 (9.0-12.0) Seconds INR 1.1 (0.9-1.1) Sodium (136-145) mmol/L Potassium (3.5-5.1) mmol/L Chloride (98-107) mmol/L Carbon Dioxide (21-32) mmol/L Anion Gap (3-11) BUN (7-18) mg/dl Creatinine (0.6-1.4) mg/dl Est Cr Clr Drug Dosing ml/min Est GFR ( Amer) ml/min Est GFR (Non-Af Amer) ml/min BUN/Creatinine Ratio (10-20) Glucose (70-99) mg/dl Lactate (0.4-2.0) mmol/L Calcium (8.5-10.1) mg/dl Total Bilirubin (0.2-1) mg/dl AST (15-37) U/L ALT (12-78) U/L Alkaline Phosphatase (45-117) U/L Troponin I (0-0.045) ng/ml Total Protein (6.4-8.2) gm/dl Albumin (3.4-5.0) gm/dl Globulin (2.5-4.0) gm/dl Albumin/Globulin Ratio (0.9-2) Lipase (73-393) U/L POC Stool Occult Blood (Negative) COVID-19 Eval Order Blood Type A Negative Antibody Screen NEGATIVE 02/25/21 02/25/21 02/25/21 Range/Units 15:01 15:09 16:00 WBC (4.8-10.8) K/uL RBC (4.7-6.1) M/uL Hgb (14.0-18.0) g/dL Hct (42-52) % MCV (80-100) fL MCH (25-34) pg MCHC (32-36) g/dL RDW Std Deviation (36.4-46.3) fL RDW Coeff of Ryan (11.5-14.5) % Plt Count (130-400) K/uL MPV (7.4-10.4) fL Immature Gran % (Auto) % Neut % (Auto) % Lymph % (Auto) % Ray % (Auto) % Eos % (Auto) % Baso % (Auto) % Neut # (Auto) (1.4-6.5) K/uL Lymph # (Auto) (1.2-3.4) K/uL Ray # (Auto) (0.11-0.59) K/uL Eos # (Auto) (0-0.5) K/uL Baso # (Auto) (0-0.2) K/uL Immature Gran # (Auto) (0.00-0.02) K/uL PT (9.0-12.0) Seconds INR (0.9-1.1) Sodium 137 (136-145) mmol/L Potassium 4.1 (3.5-5.1) mmol/L Chloride 105 (98-107) mmol/L Carbon Dioxide 27 (21-32) mmol/L Anion Gap 5.0 (3-11) BUN 15 (7-18) mg/dl Creatinine 1.22 (0.6-1.4) mg/dl Est Cr Clr Drug Dosing 92.4 ml/min Est GFR ( Amer) 84.8 ml/min Est GFR (Non-Af Amer) 73.2 ml/min BUN/Creatinine Ratio 12.3 (10-20) Glucose 157 H (70-99) mg/dl Lactate 1.4 (0.4-2.0) mmol/L Calcium 9.2 (8.5-10.1) mg/dl Total Bilirubin 0.3 (0.2-1) mg/dl AST 23 (15-37) U/L ALT 48 (12-78) U/L Alkaline Phosphatase 56 (45-117) U/L Troponin I < 0.015 (0-0.045) ng/ml Total Protein 7.2 (6.4-8.2) gm/dl Albumin 3.6 (3.4-5.0) gm/dl Globulin 3.6 (2.5-4.0) gm/dl Albumin/Globulin Ratio 1.0 (0.9-2) Lipase 129 (73-393) U/L POC Stool Occult Blood Positive A (Negative) COVID-19 Eval Order Blood Type Antibody Screen 02/25/21 Range/Units Unknown WBC (4.8-10.8) K/uL RBC (4.7-6.1) M/uL Hgb (14.0-18.0) g/dL Hct (42-52) % MCV (80-100) fL MCH (25-34) pg MCHC (32-36) g/dL RDW Std Deviation (36.4-46.3) fL RDW Coeff of Ryan (11.5-14.5) % Plt Count (130-400) K/uL MPV (7.4-10.4) fL Immature Gran % (Auto) % Neut % (Auto) % Lymph % (Auto) % Ray % (Auto) % Eos % (Auto) % Baso % (Auto) % Neut # (Auto) (1.4-6.5) K/uL Lymph # (Auto) (1.2-3.4) K/uL Ray # (Auto) (0.11-0.59) K/uL Eos # (Auto) (0-0.5) K/uL Baso # (Auto) (0-0.2) K/uL Immature Gran # (Auto) (0.00-0.02) K/uL PT (9.0-12.0) Seconds INR (0.9-1.1) Sodium (136-145) mmol/L Potassium (3.5-5.1) mmol/L Chloride (98-107) mmol/L Carbon Dioxide (21-32) mmol/L Anion Gap (3-11) BUN (7-18) mg/dl Creatinine (0.6-1.4) mg/dl Est Cr Clr Drug Dosing ml/min Est GFR ( Amer) ml/min Est GFR (Non-Af Amer) ml/min BUN/Creatinine Ratio (10-20) Glucose (70-99) mg/dl Lactate (0.4-2.0) mmol/L Calcium (8.5-10.1) mg/dl Total Bilirubin (0.2-1) mg/dl AST (15-37) U/L ALT (12-78) U/L Alkaline Phosphatase (45-117) U/L Troponin I (0-0.045) ng/ml Total Protein (6.4-8.2) gm/dl Albumin (3.4-5.0) gm/dl Globulin (2.5-4.0) gm/dl Albumin/Globulin Ratio (0.9-2) Lipase (73-393) U/L POC Stool Occult Blood (Negative) COVID-19 Eval Order Covid19 at [facility] Blood Type Antibody Screen Imaging Data Attestation: I personally reviewed and interpreted this imaging study as follows: My Impression: My interpretation of an abdomen obstruction series with a PA chest view ECG Data Attestation: I personally reviewed and interpreted this ECG as follows: Indication: + abdominal pain, + nausea and + weakness Rate (beats per minute): 84 Rhythm: + normal sinus ECG Intervals/blocks: + Incomplete right bundle branch block and + Normal ND ECG [place]: + Normal ECG ST segments: + Normal ST segments Comparison ECG Date: no prior available Blood Pressure Blood Pressure Findings: Normal blood pressure MDM Narrative Cardiac monitoring: An order was placed for continuous cardiac monitoring. The monitor shows a rate of 84 bpm with a normal sinus rhythm and incomplete right bundle roby block. desk monitor history was reviewed throughout the evaluation, and no dysrhythmias were noted. Patient presents emergency department with epigastric pain and GI bleed symptoms. Stool Hemoccult was positive. The patient's hemoglobin is slightly depressed at 12. Serial hemoglobin test will need to be performed. ECG was performed and does not show any significant changes or tachycardia, other than an incomplete right bundle block. I suspect that the patient's bleed is likely secondary to his recent NSAIDs and corticosteroid use for his back. Additional laboratory studies are not suggestive of pancreatitis, cholecystitis, hepatitis, coagulopathy, myocardial infarction or electrolyte abnormality. 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 Creative [employer] Prescriptions Prescriptions: No Action quetiapine 25 mg Tablet 75 mg PO HS RF: 0 buspirone [BuSpar] 5 mg Tablet 5 mg PO TID PRN (Reason: Anxiety) RF: 0 bupropion HCl 150 mg Tablet Sustained-Release 12 Hr 150 mg PO DAILY RF: 0 simvastatin 10 mg Tablet 10 mg PO HS RF: 0 amlodipine 5 mg tablet 5 mg PO DAILY RF: 0 omeprazole 20 mg Capsule,Delayed Release(Dr/Ec) 20 mg PO DAILY RF: 0 montelukast 10 mg tablet 10 mg PO DAILY RF: 0 fluticasone propionate [Flonase] 50 mcg/actuation [place],Suspension 2 spray INTRANASAL DAILY RF: 0 fenofibrate [Lofibra] 160 mg Tablet 160 mg PO DAILY RF: 0 Anoro Ellipta 62.5-25 mcg/actuation Blister With Device 1 inh INHALATION DAILY RF: 0 Combivent Respimat 20-100 mcg/actuation Mist 1 puff INHALATION Q6H RF: 0 lisinopril 20 mg Tablet 20 mg PO DAILY RF: 0 fexofenadine 180 mg Tablet 180 mg PO DAILY PRN (Reason: allergies) RF: 0 gabapentin 300 mg Capsule 300 mg PO BID RF: 0 Discharge Problem: Chronic back pain Qualifiers: Back pain location: low back pain Back pain laterality: unspecified Sciatica presence: unspecified whether sciatica present Qualified Code(s): M54.5 - Low back pain
[2021-02-25 15:19] LABS: Basophils # (auto) 0.01 K/uL (0-0.2); Basophils % (auto) 0.2 %; Eosinophils % (auto) 1.8 %; Hematocrit (blood only) 36.5 % (42-52); Immature Granulocytes # (auto) 0.03 K/uL (0.00-0.02); Immature Granulocytes % (auto) 0.5 %; Lymphocytes # (auto) 1.42 K/uL (1.2-3.4); Lymphocytes % (auto) 25.3 %; Mean Corpuscular Hemoglobin 30.8 pg (25-34); Mean Corpuscular Hgb Conc 32.9 g/dL (32-36); Mean Corpuscular Volume 93.8 fL (80-100); Mean Platelet Volume 10.9 fL (7.4-10.4); Monocytes # (auto) 0.43 K/uL (0.11-0.59); Monocytes % (auto) 7.7 %; Neutrophils # (auto) 3.62 K/uL (1.4-6.5); Neutrophils % (auto) 64.5 %; Platelet Count 171 K/uL (130-400); RDW Standard Deviation 44.4 fL (36.4-46.3); Red Blood Count 3.89 M/uL (4.7-6.1); White Blood Count 5.61 K/uL (4.8-10.8)
[2021-02-25 15:38] LABS: INR 1.1 (0.9-1.1); Prothrombin Time 10.7 Seconds (9.0-12.0)
[2021-02-25 15:50] LABS: Alanine Aminotransferase 48 U/L (12-78); Albumin Level 3.6 gm/dl (3.4-5.0); Aspartate Aminotransferase 23 U/L (15-37); BUN Creatinine Ratio 12.3 (10-20); Blood Urea Nitrogen 15 mg/dl (7-18); Calcium 9.2 mg/dl (8.5-10.1); Carbon Dioxide 27 mmol/L (21-32); Chloride 105 mmol/L (98-107); Creatinine Clr Calc Pharmacy 92.4 ml/min; Est GFR (African American) 84.8 ml/min; Est GFR (Non-African American) 73.2 ml/min; Glucose 157 mg/dl (70-99); Lipase 129 U/L (73-393); Potassium 4.1 mmol/L (3.5-5.1); Sodium 137 mmol/L (136-145)
[2021-02-25 15:55] LABS: Alkaline Phosphatase 56 U/L (45-117); Bilirubin,Total 0.3 mg/dl (0.2-1); Globulin 3.6 gm/dl (2.5-4.0); Total Protein 7.2 gm/dl (6.4-8.2); Troponin I < 0.015 ng/ml (0-0.045)
[2021-02-25] MEDS: PANTOprazole 40 MG in DEXTROSE 5% 100 ML IV SCH ×3 (15:56→20:54)
--- NOTE | 2021-02-25 16:10 | Gastrointestinal Consultation ---
Date of Consultation February 25, 2021 Assessment & Plan (1) GERD (gastroesophageal reflux disease): 40 year old male with epigastric burning and heartburn x 1 week who notes dark, tarry stools for 3 days, HGB 12 w/o BUN elevation. He notes frequent PO prednisone courses and nearly daily NSAID use. concern for UGI bleed Clear liquids today NPO after midnight IV PPI bolus and drip COVID test EGD tomorrow Trend HGB Monitor for s/s of GI bleed Supervising Physician Co-Signing Physician Notes I saw and evaluated the patient with ms. Mendoza. He presents with a history of abdominal pain and dark sticky stool for several days. The patient does smoke about 1 pack/day and is on nonsteroidals as an outpatient. Physical examination Pleasant appearing male in no obvious distress Minimal epigastric discomfort Impression: Patient with a history of melena, given the history I wonder about peptic ulcer disease given his use of nonsteroidal medications. Recommendations May have clear liquids this evening Plan for upper endoscopy tomorrow morning Please begin a Protonix drip Please stop all nonsteroidals Please call with any questions or concerns History of Present Illness Reason for Consultation: dark stool Requesting Physician: mik Attending Physician: mik History of Present Illness 40 year old male with history of asthma GERD and others below who presents to the ED w/ dark tarry stools, tired, abd pain. Pt was seen and evaluated, chart reviewed. Family at bedside. Notes that he has had some UGI symptoms for 1-2 weeks. Abd pain, burning but no nausea,vomiting. Does have associated GERD. About three days ago, noted change in bowel habits. Stools have been dark black, coffee ground appearance. No BRB. Stools are looser, more frequent as well. No nocturnal episodes. Denies fever, chills, CP, SOB. No ETOH No IV/IN drug use + frequent courses of PO prednisone recently + nearly daily use of NSAIDs for MSK pain EGD/Colonoscopy: none Allergies Allergy/AdvReac Type Severity Reaction Status Date / Time No Known Allergies Allergy Verified 01/10/19 23:16 Home Medications Medication Instructions Recorded Confirmed Type albuterol sulfate [ProAir HFA] 2 puff INHALATION UD PRN 01/10/19 01/10/19 History amlodipine [Norvasc] 5 mg PO DAILY 01/10/19 01/10/19 History atomoxetine [Strattera] 40 mg PO DAILY 01/10/19 01/10/19 History bupropion HCl [Wellbutrin XL] 300 mg PO DAILY 01/10/19 01/10/19 History buspirone 5 mg PO BID 01/10/19 01/10/19 History celecoxib [Celebrex] 100 mg PO DAILY 01/10/19 01/10/19 History cyclobenzaprine 10 mg PO HS PRN 01/10/19 01/10/19 History desmopressin [DDAVP] 0.2 mg PO HS 01/10/19 01/10/19 History gabapentin [Neurontin] 300 mg PO BID 01/10/19 01/10/19 History lisinopril [Zestril] 20 mg PO DAILY 01/10/19 01/10/19 History omeprazole 20 mg PO BID 01/10/19 01/10/19 History paroxetine HCl [Paxil] 30 mg PO DAILY 01/10/19 01/10/19 History trazodone 150 mg PO HS 01/10/19 01/10/19 History azithromycin [Zithromax] 250 mg PO UD #6 tab 01/13/19 Rx Patient History Medical History Acute hypoxemic respiratory failure Asthma GERD (gastroesophageal reflux disease) Surgical History History of back surgery Social History Smoking Status: Current every day smoker Cigarettes Per Day: 20; Hx Alcohol Use: Yes Alcohol type: beer and hard liquor Hx Substance Use: No Preferred Language: Maori Communication Ability: Effective Spice Cleaner Required: No Beliefs That Will Affect Care: None Current Living Situation: Other Current Living Situation Comment: Friend/rooomate current occupational status: employed Feels Safe at Home: Yes Assistive Devices: None Review of Systems Review of Systems: All systems reviewed & are unremarkable except as noted in HPI & below Physical Exam Constitutional: WD/WN, vitals as above Neck: trachea midline Respiratory: normal respiratory effort, lungs clear to auscultation Cardiovascular: RRR, no murmur, no edema Gastrointestinal (Abdomen): normal bowel sounds, soft, nontender, no hepatosplenomegaly Results & Data ([facility]) Vital Signs (Past 12 Hours) Vital Signs Temp Pulse Resp Pulse Ox 02/25/21 13:51 36.9 C 62 20 96 Laboratory Results 02/25/21 02/25/21 02/25/21 Range/Units 15:09 15:01 15:01 WBC (4.8-10.8) K/uL RBC (4.7-6.1) M/uL Hgb (14.0-18.0) g/dL Hct (42-52) % MCV (80-100) fL MCH (25-34) pg MCHC (32-36) g/dL RDW Std Deviation (36.4-46.3) fL RDW Coeff of Ryan (11.5-14.5) % Plt Count (130-400) K/uL MPV (7.4-10.4) fL Immature Gran % (Auto) % Neut % (Auto) % Lymph % (Auto) % [place] % (Auto) % Eos % (Auto) % Baso % (Auto) % Neut # (Auto) (1.4-6.5) K/uL Lymph # (Auto) (1.2-3.4) K/uL [place] # (Auto) (0.11-0.59) K/uL Eos # (Auto) (0-0.5) K/uL Baso # (Auto) (0-0.2) K/uL Immature Gran # (Auto) (0.00-0.02) K/uL PT 10.7 (9.0-12.0) Seconds INR 1.1 (0.9-1.1) Sodium 137 (136-145) mmol/L Potassium 4.1 (3.5-5.1) mmol/L Chloride 105 (98-107) mmol/L Carbon Dioxide 27 (21-32) mmol/L Anion Gap 5.0 (3-11) BUN 15 (7-18) mg/dl Creatinine 1.22 (0.6-1.4) mg/dl Est Cr Clr Drug Dosing 92.4 ml/min Est GFR ( Amer) 84.8 ml/min Est GFR (Non-Af Amer) 73.2 ml/min BUN/Creatinine Ratio 12.3 (10-20) Glucose 157 H (70-99) mg/dl Lactate 1.4 (0.4-2.0) mmol/L Calcium 9.2 (8.5-10.1) mg/dl Total Bilirubin 0.3 (0.2-1) mg/dl AST 23 (15-37) U/L ALT 48 (12-78) U/L Alkaline Phosphatase 56 (45-117) U/L Troponin I < 0.015 (0-0.045) ng/ml Total Protein 7.2 (6.4-8.2) gm/dl Albumin 3.6 (3.4-5.0) gm/dl Globulin 3.6 (2.5-4.0) gm/dl Albumin/Globulin Ratio 1.0 (0.9-2) Lipase 129 (73-393) U/L Blood Type Antibody Screen 02/25/21 02/25/21 Range/Units 15:01 15:01 WBC 5.61 (4.8-10.8) K/uL RBC 3.89 L (4.7-6.1) M/uL Hgb 12.0 L (14.0-18.0) g/dL Hct 36.5 L (42-52) % MCV 93.8 (80-100) fL MCH 30.8 (25-34) pg MCHC 32.9 (32-36) g/dL RDW Std Deviation 44.4 (36.4-46.3) fL RDW Coeff of Ryan 13.0 (11.5-14.5) % Plt Count 171 (130-400) K/uL MPV 10.9 H (7.4-10.4) fL Immature Gran % (Auto) 0.5 % Neut % (Auto) 64.5 % Lymph % (Auto) 25.3 % [place] % (Auto) 7.7 % Eos % (Auto) 1.8 % Baso % (Auto) 0.2 % Neut # (Auto) 3.62 (1.4-6.5) K/uL Lymph # (Auto) 1.42 (1.2-3.4) K/uL [place] # (Auto) 0.43 (0.11-0.59) K/uL Eos # (Auto) 0.10 (0-0.5) K/uL Baso # (Auto) 0.01 (0-0.2) K/uL Immature Gran # (Auto) 0.03 H (0.00-0.02) K/uL PT (9.0-12.0) Seconds INR (0.9-1.1) Sodium (136-145) mmol/L Potassium (3.5-5.1) mmol/L Chloride (98-107) mmol/L Carbon Dioxide (21-32) mmol/L Anion Gap (3-11) BUN (7-18) mg/dl Creatinine (0.6-1.4) mg/dl Est Cr Clr Drug Dosing ml/min Est GFR ( Amer) ml/min Est GFR (Non-Af Amer) ml/min BUN/Creatinine Ratio (10-20) Glucose (70-99) mg/dl Lactate (0.4-2.0) mmol/L Calcium (8.5-10.1) mg/dl Total Bilirubin (0.2-1) mg/dl AST (15-37) U/L ALT (12-78) U/L Alkaline Phosphatase (45-117) U/L Troponin I (0-0.045) ng/ml Total Protein (6.4-8.2) gm/dl Albumin (3.4-5.0) gm/dl Globulin (2.5-4.0) gm/dl Albumin/Globulin Ratio (0.9-2) Lipase (73-393) U/L Blood Type Pending Antibody Screen Pending
--- NOTE | 2021-02-25 16:49 | History & Physical Report ---
Date of Service February 25, 2021 Assessment & Plan (1) Acute upper GI bleed: This is a 40-year-old male who has significant past medical history of HTN, HLD, RADHA on BiPAP, COPD, tobacco abuse, history of IV drug use, history of cannabis dependence, ADHD, depression with anxiety, obesity who presents ED secondary to dark tarry stool abdominal pain x3 days. Admit to [facility] consulted - appreciate their recommendations clear liquids today NPO after midnight EGD in a.m. PPI bolus and gtt started avoid NSAIDS monitor hgb obtain a1c 2/2 to elevated random glucose 157 (2) Anemia: H&H 12.0 and 36.5 Normocytic normochromic Secondary to GI loss Monitor type and screen ordered (3) HTN (hypertension): Bp 144/72 continue amlodipine, lisinopril monitor BP (4) HLD (hyperlipidemia): continue statin (5) COPD (chronic obstructive pulmonary disease): no acute exac follows puja farfan recently tx with pred taper, levaquin continue anoro, combivent encourage smoking cessation (6) RADHA treated with BiPAP: bipap at HS (7) Tobacco abuse: nicotine patch encourage smoking cessation (8) Obesity, Class III, BMI 40-49.9 (morbid obesity): encourage lifestyle modifications (9) DVT prophylaxis: SCD/TEDS Dispo: [facility] PCP: Puja Lorenz FULL CODE Pt was seen and examined in collaboration with Dr. White, please see addendum History of Present Illness Chief Complaint: dark tarry stool and abdominal pain x 3 days. Primary Care Provider: Shawn Lawrence MD This is a 40-year-old male who has significant past medical history of HTN, HLD, RADHA on BiPAP, COPD, tobacco abuse, history of IV drug use, history of cannabis dependence, ADHD, depression with anxiety, obesity who presents ED secondary to dark tarry stool abdominal pain x3 days. He complains of supraum bilical abdominal pain off and on for the past 3 days. He further admits to 4-5 episodes of loose, dark, tarry and coffee-ground stool. He also has increasing belching. He has never had anything similar in the past. Recently he was seen and evaluated by pulmonology and treated for acute bronchitis with Levaquin and prednisone but this has not been completed. He does take NSAIDs intermittently but not consistently. He further admits to being lightheaded and dizzy, weak and nauseated. He denies fever, chills, sweats, syncope, headache, chest pain, shortness breath, cough, URI symptoms, hemoptysis, hematemesis, vomiting, constipation, dysuria, urinary frequency and urgency. Appetite has otherwise been decreased. In ED he remained hemodynamically stable. H&H was 12.0 and 36.5. He was FOBT positive. CMP unremarkable except for hyperglycemia 157. He was seen and evaluated by gastroenterology in ED who recommended inpatient admission, IV PPI bolus and drip n.p.o. after midnight for EGD in the morning. Allergies Allergy/AdvReac Type Severity Reaction Status Date / Time No Known Allergies Allergy Verified 02/25/21 17:04 Home Medications Medication Instructions Recorded Confirmed Type amlodipine 5 mg PO DAILY 02/25/21 02/25/21 History bupropion HCl 150 mg PO DAILY 02/25/21 02/25/21 History buspirone [BuSpar] 5 mg PO TID PRN 02/25/21 02/25/21 History fenofibrate [Lofibra] 160 mg PO DAILY 02/25/21 02/25/21 History fexofenadine 180 mg PO DAILY 02/25/21 02/25/21 History fluticasone propionate [Flonase] 2 spray INTRANASAL DAILY 02/25/21 02/25/21 History gabapentin 300 mg PO BID 02/25/21 02/25/21 History ipratropium-albuterol [Combivent 1 puff INHALATION Q6H 02/25/21 02/25/21 History Respimat] lisinopril 20 mg PO DAILY 02/25/21 02/25/21 History montelukast 10 mg PO DAILY 02/25/21 02/25/21 History omeprazole 20 mg PO DAILY 02/25/21 02/25/21 History quetiapine 75 mg PO HS 02/25/21 02/25/21 History simvastatin 10 mg PO HS 02/25/21 02/25/21 History umeclidinium-vilanterol [Anoro 1 inh INHALATION DAILY 02/25/21 02/25/21 History Ellipta] Past Med/Surg History Medical History ADHD Anxiety Asthma COPD (chronic obstructive pulmonary disease) GERD (gastroesophageal reflux disease) HLD (hyperlipidemia) HTN (hypertension) RADHA treated with BiPAP Tobacco abuse Surgical History History of back surgery History of hand surgery Family History Father Lymphoma Mother Alive and well Brother Diabetes Social History Smoking Status: Current every day smoker Years Smoked: 30; Cigarettes Per Day: 10; Hx Alcohol Use: Yes Alcohol type: beer and hard liquor Alcohol Intake Frequency: 2-4 x/Month Hx Substance Use: Yes Non-Prescribed Medications: IV Drugs and Marijuana Preferred Language: Yemeni Communication Ability: Effective 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 Beliefs That Will Affect Care: None Current Living Situation: Other Current Living Situation Comment: Friend/rooomate current occupational status: employed Feels Safe at Home: Yes Assistive Devices: None Review of Systems Review of Systems: All systems reviewed & are unremarkable except as noted in HPI & below Physical Exam Physical Exam: Constitutional: Morbidly obese, male, WD/WN, vitals as above, NAD, sitting up in bed, pleasant, conversing easily Head: Normocephalic, Atraumatic Eyes: PERRL, conjunctivae normal, anicteric sclerae ENMT: external ear and nose normal, oropharynx normal Neck: trachea midline, no thyromegaly normal visual inspection Respiratory: normal respiratory effort, lungs clear to auscultation, no wheeze, rales, rhonchi. Normal insp/exp effort, no accessory muscle use Cardiovascular: RRR, no murmur, no edema Vessels: no JVD or carotid bruit Chest: normal inspection of chest Abdomen: Protuberant abdomen, normal bowel sounds, soft, nontender, no hepatosplenomegaly Musculoskeletal: no cyanosis or clubbing, extremities motor strength 5/5 Skin: no rashes, warm and dry normal turgor Neurologic: PERRL, EOMI, accommodation nl, no face palsy, no dysarthria CN's II-XI intact bilaterally and moves all extremities Psychiatric: A+Ox3, euthymic affect Lymphatic: no cervical or axillary lymphadenopathy : deferred Results & Data Results & Data ([facility]) Vital Signs (Past 12 Hours) Vital Signs Temp Pulse Pulse Resp BP Pulse Ox 02/25/21 16:00 72 18 144/72 H 97 02/25/21 13:51 36.9 C 62 20 96 Medications Administered Medication List Pantoprazole Sodium 40 mg/ (Dextrose) 100 mls @ 20 mls/hr IV Q5H SONIA Stop: 03/27/21 14:56 Last Admin: 02/25/21 15:56 Dose: 8 mg/hr, 20 mls/hr Documented by: [id number] Discontinued Medications Sodium Chloride (Nss 1000ml) 1,000 mls @ 999 mls/hr IV .Q1H1M STA Stop: 02/25/21 15:33 Last Infusion: 02/25/21 16:23 Dose: 0 mls/hr Documented by: [id number] Admin: 02/25/21 15:19 Dose: 999 mls/hr Documented by: [id number] Pantoprazole Sodium 80 mg/ (Dextrose) 120 mls @ 400 mls/hr IV NOW ONE Stop: 02/25/21 14:59 Last Infusion: 02/25/21 15:56 Dose: 0 mls/hr Documented by: [id number] Admin: 02/25/21 15:20 Dose: 400 mls/hr Documented by: [id number] Morphine Sulfate (Morphine Sulfate 4 Mg/Ml 1 Ml Carp\Vial) 4 mg IV NOW STA Stop: 02/25/21 14:34 Last Admin: 02/25/21 15:20 Dose: 4 mg Documented by: [id number] Ondansetron HCl (Ondansetron Inj 2 Mg/Ml 2 Ml Vial) 4 mg IV NOW STA Stop: 02/25/21 14:34 Last Admin: 02/25/21 15:20 Dose: 4 mg Documented by: [id number] COVID-19 Results Results COVID-19 Adm Lab Results: RBC 3.89 M/uL (4.7-6.1) L 02/25/21 WBC 5.61 K/uL (4.8-10.8) 02/25/21 Hgb 12.0 g/dL (14.0-18.0) L 02/25/21 Hct 36.5 % (42-52) L 02/25/21 Plt Count 171 K/uL (130-400) 02/25/21 Neutrophils (%) (Auto) 64.5 % 02/25/21 Lymphocytes (%) (Auto) 25.3 % 02/25/21 Monocytes # (Auto) 0.43 K/uL (0.11-0.59) 02/25/21 Eosinophils # (Auto) 0.10 K/uL (0-0.5) 02/25/21 Immature Granulocyte % (Auto) 0.5 % 02/25/21 Neutrophils # (Auto) 3.62 K/uL (1.4-6.5) 02/25/21 Lymphocytes # (Auto) 1.42 K/uL (1.2-3.4) 02/25/21 Monocytes # (Auto) 0.43 K/uL (0.11-0.59) 02/25/21 Eosinophils # (Auto) 0.10 K/uL (0-0.5) 02/25/21 Basophils # (Auto) 0.01 K/uL (0-0.2) 02/25/21 Immature Granulocyte # (Auto) 0.03 K/uL (0.00-0.02) H 02/25/21 Na 137 mmol/L (136-145) 02/25/21 K 4.1 mmol/L (3.5-5.1) 02/25/21 Cl 105 mmol/L (98-107) 02/25/21 CO2 27 mmol/L (21-32) 02/25/21 Anion Gap 5.0 (3-11) 02/25/21 BUN 15 mg/dl (7-18) 02/25/21 Creatinine 1.22 mg/dl (0.6-1.4) 02/25/21 BUN/Creatinine Ratio 12.3 (10-20) 02/25/21 Glucose Level 157 mg/dl (70-99) H 02/25/21 Ca 9.2 mg/dl (8.5-10.1) 02/25/21 Total Bilirubin 0.3 mg/dl (0.2-1) 02/25/21 AST/SGOT 23 U/L (15-37) 02/25/21 ALT/SGPT 48 U/L (12-78) 02/25/21 Alkaline Phosphatase 56 U/L (45-117) 02/25/21 Total Protein 7.2 gm/dl (6.4-8.2) 02/25/21 Albumin 3.6 gm/dl (3.4-5.0) 02/25/21 Globulin 3.6 gm/dl (2.5-4.0) 02/25/21 Albumin/Globulin Ratio 1.0 (0.9-2) 02/25/21 Troponin I < 0.015 ng/ml (0-0.045) 02/25/21 INR 1.1 (0.9-1.1) 02/25/21 COVID-19 PCR Pending 02/25/21 Code Status & VTE Plan Code Status Full Code VTE Prophylaxis Plan VTE Prophylaxis will be ordered: Yes Supervising Physician Co-Signing Physician Notes I saw this patient with the physician admin assistant, I participated in the history, physical, review of systems, and physical exam. I reviewed the medications with the patient and the physician admin assistant and helped reconcile the medications. I helped take a detailed family and social history as well. I formulated the assessment and plan personally with the physician admin assistant and went over it with the patient. ROS-No Headache, No Visual Changes, No Nausea, No Vomiting, No Fever, No Chills, No Neck Pain or Stiffness, No Chest Pain, No Palpitations, No SOB, No [place], No Cough, No Sputum, No Wheezing, No Abdominal Pain, No Diarrhea, No Hematemesis, No Hemoptysis, No Unexpected Weight Loss, No Flank pain, + Melena, No Hematochezia, No Frequency, No Urgency, No Burning, No Hematuria, No Rashes, No Diaphoresis. Appetite is Normal, +dizziness Physical Exam Gen-AAO x 3, NAD, Afebrile Head-NCAT, EOMI, PERRLA, Anicteric Sclera, No Posterior Pharyngeal Erythema Neck-Supple, No JVD, No Thyromegaly, No Masses, No LAD, No Bruits Lungs-Clear to Auscultation Bilaterally, No Rales, No Rhonchi, No Wheezing, No Crepitus Chest-No S4, +S1, +S2, No S3, No Murmurs, No Rubs, No Gallops, No Ectopy Abdomen-Soft, Bowel Sounds Present, Non Tender, Non Distended, No Hepatomegaly, No Splenomegaly, No Palpable Masses, No Rebound, No Rigidity, No Guarding Musculoskeletal-Full Range of Motion Bilaterally, No CVAT Extremities-No Cyanosis, No Clubbing, No Edema Nuero-Cranial Nerves II-XII grossly intact, Motor WNL, DTRs WNL, Strength WNL, Non Focal Psych-Normal Mood
--- NOTE | 2021-02-25 17:31 | XRay Report ---
XR abdomen 2V w PA chest HISTORY: 40 years-old Male Upper GI bleed acute GI bleed COMPARISON: Chest radiograph 01/10/2019 TECHNIQUE: AP view of the chest with erect and supine views of the abdomen FINDINGS: Cardiac mediastinal and hilar silhouettes are within normal limits. No pneumothorax, pleural effusion , airspace consolidation or overt pulmonary edema. Bones of the chest appear grossly intact. No pneumatosis or pneumoperitoneum. The bowel gas pattern is nonobstructive. No urolith. No acute fra cture. IMPRESSION: 1. No acute processes of the chest. 2. Nonobstructive bowel gas pattern. ACT 112: Negative or not required by law. The above report was generated using voice recognition software. It may contain grammatical, syntax o r spelling errors. Electronically signed by: Reginald Gasca M.D. 02/25/2021 5:30 PM
[2021-02-25] MEDS ORDERED: MAGNESIUM HYDROXIDE SUSP 30 ML UDC PO PRN (19:26)
[2021-02-25] MEDS ORDERED: ACETAMINOPHEN 325 MG TAB PO PRN (19:26)
[2021-02-25] MEDS ORDERED: IPRATROPIUM BROMIDE/ALBUTEROL respimat INH INH SCH (19:26)
[2021-02-25] MEDS ORDERED: ONDANSETRON INJ 2 MG/ML 2 ML VIAL IV PRN (19:26)
[2021-02-25] MEDS ORDERED: POLYETHYLENE (MIRALAX) 17 GM PACK PO PRN (19:26)
[2021-02-25] MEDS ORDERED: ALUMINUM/MAGNESIUM SUSP 30 ML UDC PO PRN (19:26)
[2021-02-25] MEDS ORDERED: NICOTINE 21 MG/24 HR TDSY TD SCH (20:00)
[2021-02-25] MEDS: SODIUM CHLORIDE 0.9% 1000ML 1,000 ML IV SCH (20:54)
[2021-02-25] MEDS: GABAPENTIN 300 MG CAP PO SCH (20:55)
[2021-02-25] MEDS ORDERED: SIMVASTATIN 10 MG TAB PO SCH (21:00)
[2021-02-25] MEDS ORDERED: QUEtiapine FUMARATE 25 MG TABLET PO SCH (21:00)
[2021-02-25] MEDS: Ipratropium HFA Inhaler (Combivent Respimat P&T Subs) INH SCH (21:27)
[2021-02-25] MEDS: Albuterol HFA 8 GM Inhaler (Combivent Respimat P&T Subs) INH SCH (21:27)
[2021-02-25 22:44] LABS: Hemoglobin 11.5 g/dL (14.0-18.0)
[2021-02-26] MEDS: PANTOprazole 40 MG in DEXTROSE 5% 100 ML IV SCH ×2 (01:26→05:25)
[2021-02-26] MEDS: Ipratropium HFA Inhaler (Combivent Respimat P&T Subs) INH SCH ×3 (02:40→13:20)
[2021-02-26] MEDS: Albuterol HFA 8 GM Inhaler (Combivent Respimat P&T Subs) INH SCH ×3 (02:40→13:20)
[2021-02-26] MEDS: SODIUM CHLORIDE 0.9% 1000ML 1,000 ML IV SCH (05:26)
[2021-02-26 07:56] LABS: Hematocrit (blood only) 36.5 % (42-52); Mean Corpuscular Hemoglobin 30.2 pg (25-34); Mean Corpuscular Hgb Conc 32.9 g/dL (32-36); Mean Corpuscular Volume 91.7 fL (80-100); Mean Platelet Volume 10.5 fL (7.4-10.4); Platelet Count 159 K/uL (130-400); RDW Coefficient of Variation 12.9 % (11.5-14.5); RDW Standard Deviation 43.2 fL (36.4-46.3); Red Blood Count 3.98 M/uL (4.7-6.1); White Blood Count 5.41 K/uL (4.8-10.8)
--- NOTE | 2021-02-26 08:09 | Anesthesiology Consultation ---
Date of Service February 26, 2021 Assessment & Plan (1) Encounter for pre-operative examination: Chart Review Chart Review: Acceptable Risk for Surgery and Patient NOT seen in Pre Admission Testing Consults Requested none History Surgery Operation Date: 02/26/21 16:15 Proposed Procedures p Esophagogastroduodenoscopy Dr Johan Prado, DO Height/Weight Height: 5 ft 5 in Weight: 112.6 kg Allergies Allergy/AdvReac Type Severity Reaction Status Date / Time [place] Allergy red & itchy Uncoded 02/25/21 17:46 Medications Home Medications Medication Instructions Recorded Confirmed Last Taken amlodipine 5 mg PO DAILY 02/25/21 02/25/21 Unknown bupropion HCl 150 mg PO DAILY 02/25/21 02/25/21 Unknown buspirone [BuSpar] 5 mg PO TID PRN 02/25/21 02/25/21 Unknown fenofibrate [Lofibra] 160 mg PO DAILY 02/25/21 02/25/21 Unknown fexofenadine 180 mg PO DAILY 02/25/21 02/25/21 Unknown fluticasone propionate [Flonase] 2 spray INTRANASAL DAILY 02/25/21 02/25/21 Unknown gabapentin 300 mg PO BID 02/25/21 02/25/21 Unknown ipratropium-albuterol [Combivent 1 puff INHALATION Q6H 02/25/21 02/25/21 Unknown Respimat] lisinopril 20 mg PO DAILY 02/25/21 02/25/21 Unknown montelukast 10 mg PO DAILY 02/25/21 02/25/21 Unknown omeprazole 20 mg PO DAILY 02/25/21 02/25/21 Unknown quetiapine 75 mg PO HS 02/25/21 02/25/21 Unknown simvastatin 10 mg PO HS 02/25/21 02/25/21 Unknown umeclidinium-vilanterol [Anoro 1 inh INHALATION DAILY 02/25/21 02/25/21 Unknown Ellipta] Active Medications Generic Name Dose Route Start Last Admin Trade Name Freq PRN Reason Stop Dose Admin Acetaminophen 650 mg 02/25/21 19:26 02/25/21 20:55 Acetaminophen 325 Mg Tab PO 03/27/21 19:25 650 mg Q4H PRN Administration Pain or Fever Albuterol 1 puffs 02/25/21 21:15 02/26/21 07:25 Albuterol Hfa 8 Gm Inhaler (Combivent Respimat P&T Subs) INH 03/27/21 21:14 1 puffs Q6R SONIA Administration Gabapentin 300 mg 02/25/21 21:00 02/25/21 20:55 Gabapentin 300 Mg Cap PO 03/27/21 20:59 300 mg BID SONIA Administration Sodium Chloride 1,000 mls @ 110 mls/hr 02/25/21 20:00 02/26/21 05:26 Nss 1000ml IV 03/27/21 19:59 110 mls/hr .Q9H6M SONIA Administration Pantoprazole Sodium 40 mg/ 100 mls @ 20 mls/hr 02/25/21 21:00 02/26/21 05:25 Dextrose IV 03/27/21 20:59 8 mg/hr Q5H SONIA 20 mls/hr Administration 8 MG/HR Ipratropium [place] 1 puffs 02/25/21 21:15 02/26/21 07:25 Ipratropium Hfa Inhaler (Combivent Respimat P&T Subs) INH 03/27/21 21:14 1 puffs Q6R SONIA Administration Nicotine 21 mg 02/25/21 20:00 02/25/21 20:55 Nicotine 21 Mg/24 Hr Tdsy TD 03/27/21 19:59 21 mg Q24H SONIA Administration Quetiapine Fumarate 75 mg 02/25/21 21:00 02/25/21 20:56 Quetiapine Fumarate 25 Mg Tablet PO 03/27/21 20:59 75 mg HS SONIA Administration Simvastatin 10 mg 02/25/21 21:00 02/25/21 20:56 Simvastatin 10 Mg Tab PO 03/27/21 20:59 10 mg HS SONIA Administration Past Medical History Medical History (Updated 02/26/21 @ 08:12 by Alex Millard MD) Acute upper GI bleed ADHD Anxiety Asthma COPD (chronic obstructive pulmonary disease) GERD (gastroesophageal reflux disease) HLD (hyperlipidemia) 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) Obesity, Class III, BMI 40-49.9 (morbid obesity) RADHA treated with BiPAP Tobacco abuse Per hospitalist note: "This is a 40-year-old male who has significant past medical history of HTN, HLD, RADHA on BiPAP, COPD, tobacco abuse, history of IV drug use, history of cannabis dependence, ADHD, depression with anxiety, obesity who presents ED secondary to dark tarry stool abdominal pain x3 days." Past Family History Family History Father Lymphoma Mother Alive and well Brother Diabetes Past Surgical History Surgical History History of back surgery History of hand surgery Social History Smoking Status: Current every day smoker tobacco type: cigarettes Smoking cigarettes per day: 1/2 pack Do You Dip or Chew Tobacco: No Hx Alcohol Use: Yes Alcohol type: beer and hard liquor alcohol intake frequency: a few times a month Hx Substance Use: Yes substance use type: marijuana Physical Exam Vital Signs Last Vital Signs Temp 36.4 C L 02/26/21 08:21 Pulse 79 02/26/21 08:21 Resp 20 02/26/21 08:21 BP 155/111 H 02/26/21 08:21 Pulse Ox 96 02/26/21 08:21 Testing Laboratory Results 02/26/21 07:38 02/26/21 07:38 PT 10.7 Seconds (9.0-12.0) 02/25/21 15:01 INR 1.1 (0.9-1.1) 02/25/21 15:01 Blood Type A Negative 02/25/21 15:01 Antibody Screen NEGATIVE 02/25/21 15:01 Electrocardiogram Date: 02/25/21 Findings: + NSR @ (71) Normal sinus rhythm Normal ECG When compared with ECG of 10-JAN-2019 20:05, Incomplete right bundle branch block is no longer Present
[2021-02-26] MEDS ORDERED: PROPOFOL IV EMULSION 10 MG/ML 20 ML VIAL IV ONE ×2 (08:22→09:01)
[2021-02-26] MEDS ORDERED: fentaNYL citrate 100 MCG/2 ML VIAL ONE (08:22)
[2021-02-26] MEDS ORDERED: LIDOCAINE 2% 2 ML VIAL/AMP(20MG/ML) INFIL ONE (08:22)
[2021-02-26 08:25] LABS: Albumin Level 3.6 gm/dl (3.4-5.0); BUN Creatinine Ratio 9.5 (10-20); Calcium 9.1 mg/dl (8.5-10.1); Creatinine Clr Calc Pharmacy 94.7 ml/min; Est GFR (African American) 87.4 ml/min; Est GFR (Non-African American) 75.4 ml/min; Potassium 3.9 mmol/L (3.5-5.1)
[2021-02-26 08:28] LABS: Bilirubin,Total 0.4 mg/dl (0.2-1); Globulin 3.5 gm/dl (2.5-4.0); Total Protein 7.1 gm/dl (6.4-8.2)
--- NOTE | 2021-02-26 08:40 | History & Physical Bridge Note ---
Date of Service February 26, 2021 History & Physical Bridge Note I have examined the patient, reviewed the History & Physical and in the interval since the performance of the History & Physical I have noted the following changes of clinical significance: no changes noted. We are planning to do upper endoscopy today due to a history of melena. The risks of upper endoscopy have been discussed extensively with the patient to include bleeding, infection, perforation, pain, aspiration and need for follow-up studies.
[2021-02-26 08:49] LABS: Estimated Average Glucose 108 mg/dl; Hemoglobin A1C 5.4 % (4.5-5.6)
--- NOTE | 2021-02-26 08:59 | Communication Note ---
Date of Service: February 26, 2021 The patient underwent upper endoscopy this morning. It was notable for no evidence of peptic ulcer disease or bleeding source from the upper digestive tract. As the patient's hemoglobin and hematocrit have not dropped significantly it would probably be reasonable to do an outpatient colonoscopy over the next 2 to 4 weeks. Recommendations Recommendations outpatient colonoscopy to be scheduled May discontinue proton pump use
[2021-02-26] MEDS ORDERED: UMECLIDINIUM/VILANTEROL 62.5/25MCG 7 PUFFS/INHALER INH SCH (09:00)
[2021-02-26] MEDS ORDERED: buPROPion SR 150 MG TABCR PO SCH (09:00)
[2021-02-26] MEDS ORDERED: PANTOprazole 40 MG TAB PO SCH (09:00)
[2021-02-26] MEDS ORDERED: FEXOFENADINE HCL 180 MG TAB PO SCH (09:00)
[2021-02-26] MEDS ORDERED: amLODIPine BESYLATE 5 MG TAB PO SCH (09:00)
[2021-02-26] MEDS ORDERED: FLUTICASONE PROPIONATE NA SPR 16 GM BTL SCH (09:00)
[2021-02-26] MEDS ORDERED: lisinopril 20 MG TAB PO SCH (09:00)
[2021-02-26] MEDS ORDERED: FENOFIBRATE NANOCRYSTALLIZED 145 MG TABLET PO SCH (09:00)
[2021-02-26] MEDS ORDERED: MONTELUKAST SODIUM 10 MG TABLET PO SCH (09:00)
--- NOTE | 2021-02-26 09:04 | GI REPORT ---
Patient Name: Eleazar Medel Procedure Date: 02/26/2021 8:37 AM Date of : 1980 Admit Type: Inpatient Age: 40 Gender: Male Attending MD: Beau Prado DO Procedure: Upper GI endoscopy Providers: Beau Prado DO Referring MD: Girma Cornell Md, Shawn Lawrence M.d. Indications: Heme positive stool, Melena Medicines: Monitored Anesthesia Care Complications: No immediate complications. Estimated blood loss: Minimal. Estimated Blood Loss: Estimated blood loss was minimal. Procedure: Pre-Anesthesia Assessment: - Prior to the procedure, a History and Physical was performed, and patient medications, allergies and sensitivities were reviewed. The patient's tolerance of previous anesthesia was reviewed. - The risks and benefits of the procedure and the sedation options and risks were discussed with the patient. All questions were answered and informed consent was obtained. - Patient identification and proposed procedure were verified prior to the procedure by the physician, the nurse and the director of procurement. The procedure was verified in the procedure room. - Pre-procedure physical examination revealed no contraindications to sedation. - ASA Grade Assessment: III - A patient with severe systemic disease. - After reviewing the risks and benefits, the patient was deemed in satisfactory condition to undergo the procedure. - The anesthesia plan was to use monitored anesthesia care (MAC). - Immediately prior to administration of medications, the patient was re-assessed for adequacy to receive sedatives. - The heart rate, respiratory rate, oxygen saturations, blood pressure, adequacy of pulmonary ventilation, and response to care were monitored throughout the procedure. - The physical status of the patient was re-assessed after the procedure. After obtaining informed consent, the endoscope was passed under direct vision. Throughout the procedure, the patient's blood pressure, pulse, and oxygen saturations were monitored continuously. The Endoscope was introduced through the mouth, and advanced to the third part of duodenum. The upper GI endoscopy was accomplished without difficulty. The patient tolerated the procedure well. Findings: The examined esophagus was normal. The Z-line was regular and was found 40 cm from the incisors. The entire examined stomach was normal. The examined duodenum was normal. Impression: - Normal esophagus. - Z-line regular, 40 cm from the incisors. - Normal stomach. - Normal examined duodenum. - No specimens collected. Recommendation: - Perform a colonoscopy at appointment to be scheduled, may be done as outpatient. Beau Prado D.O. Beau Prado, 02/26/2021 9:04:22 AM This report has been signed electronically. Note Initiated On: 02/26/2021 8:37 AM Number of Addenda: 0 I attest to the content of the Intraoperative Record and orders documented therein, exceptions below {[id number]}
[2021-02-26] MEDS: GABAPENTIN 300 MG CAP PO SCH (10:10)
--- NOTE | 2021-02-26 10:35 | Anesthesiology Progress Note ---
Date of Service February 26, 2021 Anesthesia Post Procedure Vital Signs Vital Signs: Temp Pulse Pulse Pulse Resp BP BP 02/26/21 10:01 36.7 C 73 16 158/102 H 02/26/21 09:28 76 16 151/95 H 02/26/21 09:16 71 71 16 149/91 H 02/26/21 08:59 68 68 16 143/90 H 02/26/21 08:21 36.4 C L 79 20 155/111 H 02/26/21 07:48 36.6 C 72 18 147/85 H 02/26/21 07:44 75 02/26/21 07:25 81 16 02/26/21 03:58 36.3 C L 66 20 128/61 02/26/21 02:54 67 22 02/25/21 23:00 36.1 C L 62 20 128/80 02/25/21 22:20 63 02/25/21 21:28 71 71 17 02/25/21 19:10 36.7 C 68 67 16 02/25/21 18:32 73 18 126/68 02/25/21 18:00 68 18 02/25/21 16:00 72 18 02/25/21 13:51 36.9 C 62 20 BP Pulse Ox Pulse Ox 02/26/21 10:01 99 02/26/21 09:28 95 02/26/21 09:16 97 02/26/21 08:59 94 02/26/21 08:21 155/111 H 96 02/26/21 07:48 96 02/26/21 07:44 02/26/21 07:25 98 02/26/21 03:58 96 02/26/21 02:54 94 02/25/21 23:00 96 02/25/21 22:20 02/25/21 21:28 98 02/25/21 19:10 145/83 H 95 95 02/25/21 18:32 98 02/25/21 18:00 128/77 98 02/25/21 16:00 144/72 H 97 02/25/21 13:51 96 Pain Intensity Abdomen: Pain Intensity: 7 Transfer of Care Handoff Completed per policy Notes Mental Status: alert / awake / arousable and participated in evaluation Patient Amnestic to Procedure: Yes Nausea / Vomiting: adequately controlled Pain: adequately controlled Airway Patency, RR, SpO2: stable & adequate BP & HR: stable & adequate Hydration State: stable & adequate Anesthetic Complications: no major complications apparent and Pt Satisfied with anesthetic care
--- NOTE | 2021-02-26 12:08 | Discharge Summary ---
Date of Service February 26, 2021 Admission HPI Per Admitting Provider This is a 40-year-old male who has significant past medical history of HTN, HLD, RADHA on BiPAP, COPD, tobacco abuse, history of IV drug use, history of cannabis dependence, ADHD, depression with anxiety, obesity who presents ED secondary to dark tarry stool abdominal pain x3 days. He complains of supraumbilical abdominal pain off and on for the past 3 days. He further admits to 4-5 episodes of loose, dark, tarry and coffee-ground stool. He also has increasing belching. He has never had anything similar in the past. Recently he was seen and evaluated by pulmonology and treated for acute bronchitis with Levaquin and prednisone but this has not been completed. He does take NSAIDs intermittently but not consistently. He further admits to being lightheaded and dizzy, weak and nauseated. He denies fever, chills, sweats, syncope, headache, chest pain, shortness breath, cough, URI symptoms, hemoptysis, hematemesis, vomiting, constipation, dysuria, urinary frequency and urgency. Appetite has otherwise been decreased. In ED he remained hemodynamically stable. H&H was 12.0 and 36.5. He was FOBT positive. CMP unremarkable except for hyperglycemia 157. He was seen and evaluated by gastroenterology in ED who recommended inpatient admission, IV PPI bolus and drip n.p.o. after midnight for EGD in the morning. Admission Exam Per Admitting Provider Constitutional: Morbidly obese, male, WD/WN, vitals as above, NAD, sitting up in bed, pleasant, conversing easily Head: Normocephalic, Atraumatic Eyes: PERRL, conjunctivae normal, anicteric sclerae ENMT: external ear and nose normal, oropharynx normal Neck: trachea midline, no thyromegaly normal visual inspection Respiratory: normal respiratory effort, lungs clear to auscultation, no wheeze, rales, rhonchi. Normal insp/exp effort, no accessory muscle use Cardiovascular: RRR, no murmur, no edema Vessels: no JVD or carotid bruit Chest: normal inspection of chest Abdomen: Protuberant abdomen, normal bowel sounds, soft, nontender, no hepatosplenomegaly Musculoskeletal: no cyanosis or clubbing, extremities motor strength 5/5 Skin: no rashes, warm and dry normal turgor Neurologic: PERRL, EOMI, accommodation nl, no face palsy, no dysarthria CN's II-XI intact bilaterally and moves all extremities Psychiatric: A+Ox3, euthymic affect Lymphatic: no cervical or axillary lymphadenopathy : deferred Principal Diagnosis Gastrointestinal bleed Discharge Exam General: A&Ox3 HENT: NCAT, MMM, EOMI Eyes: PERRLA Neck: Supple, normal range of motion CVS: normal rate and rhythm Resp: b/l good breath sounds Abdomen: Soft, ND/NT, +BS Extremities: No c/c/e Neuro: face symmetric, strength grossly equal, no focal deficit Skin: warm and dry, no rashes/lesions/errythema MSK: normal ROM, no joint swelling/erythema Discharge Data Allergies Allergy/AdvReac Type Severity Reaction Status Date / Time poisen dalton Allergy red & itchy Uncoded 02/25/21 17:46 Consultations 02/25/21 16:16 ED Decision to Admit Stat 02/25/21 16:21 Consult Gastroenterology Routine Procedures Performed Operation Date: 02/26/21 16:15 Actual Procedures p Esophagogastroduodenoscopy - Beau Prado DO Hospital Course (1) Acute upper GI bleed: This is a 40-year-old male who has significant past medical history of HTN, HLD, RADHA on BiPAP, COPD, tobacco abuse, history of IV drug use, history of cannabis dependence, ADHD, depression with anxiety, obesity who presents ED secondary to dark tarry stool abdominal pain x3 days. Gastroenterology was consulted. Patient underwent EGD with did not reveal any concerning findings. Hemoglobin remained stable. Patient will follow up with gastroenterology as an outpatient for colonoscopy. On the day of discharge patient was doing okay. Hemodynamically he was doing fine. Patient tolerated diet. He will need repeat CBC with PCP follow-up. Patient was discharged in stable condition. (2) Anemia: Stable (3) HTN (hypertension): continue amlodipine, lisinopril monitor BP (4) HLD (hyperlipidemia): continue statin (5) COPD (chronic obstructive pulmonary disease): no acute exac follows valerio farfan recently tx with pred taper, levaquin continue anoro, combivent encourage smoking cessation (6) RADHA treated with BiPAP: bipap at HS (7) Tobacco abuse: nicotine patch encourage smoking cessation (8) Obesity, Class III, BMI 40-49.9 (morbid obesity): encourage lifestyle modifications Total Time Total Time Spent Total Time Spent (In Minutes): 35 Discharge Plan Discharge Items Patient Disposition: Home - Self-Care Reason For Visit: UGIB Discharge Diagnosis: Melena Activity: Resume your previous activity Non-emergency contact: Primary Care Provider Call non-emergency contact if: your symptoms worsen and your pain is not controlled Follow-up/Referrals: Shawn Lawrence MD [Primary Care Provider] - Diet: Heart Healthy Addtl Attending Provider Instructions: Follow-up with your primary care physician and gastroenterology as an outpatient. You will need to repeat CBC to monitor hemoglobin with your primary care physician. Pending Studies at Discharge: No Stand-Alone Forms: My [facility] Walkabout, Smoking Cessation Medications and DC Order Prescriptions: Continued quetiapine 25 mg Tablet 75 mg PO HS RF: 0 buspirone [BuSpar] 5 mg Tablet 5 mg PO TID PRN (Reason: Anxiety) RF: 0 bupropion HCl 150 mg Tablet Sustained-Release 12 Hr 150 mg PO DAILY RF: 0 simvastatin 10 mg Tablet 10 mg PO HS RF: 0 amlodipine 5 mg tablet 5 mg PO DAILY RF: 0 omeprazole 20 mg Capsule,Delayed Release(Dr/Ec) 20 mg PO DAILY RF: 0 montelukast 10 mg tablet 10 mg PO DAILY RF: 0 fluticasone propionate [Flonase] 50 mcg/actuation Steele,Suspension 2 spray INTRANASAL DAILY RF: 0 fenofibrate [Lofibra] 160 mg Tablet 160 mg PO DAILY RF: 0 Anoro Ellipta 62.5-25 mcg/actuation Blister With Device 1 inh INHALATION DAILY RF: 0 Combivent Respimat 20-100 mcg/actuation Mist 1 puff INHALATION Q6H RF: 0 lisinopril 20 mg Tablet 20 mg PO DAILY RF: 0 fexofenadine 180 mg Tablet 180 mg PO DAILY RF: 0 gabapentin 300 mg Capsule 300 mg PO BID RF: 0 Discharge Orders: Discharge Order (Routine); Ordered 02/26/21 Ordered By: Girma Cornell Admission Data Admit Date/Time: 02/25/21 16:21 Attending Provider: Girma Cornell Admit Provider: David White Primary Care Provider: Shawn Lawrence Other Providers: Beau Prado Gary Other Interventions: Discharge Summary Assessment (RN) Last Done: 02/26/21 09:16
--- NOTE | 2021-02-26 12:38 | Electrocardiogram Report ---
Test Reason : Blood Pressure : / mmHG Vent. Rate : 071 BPM Atrial Rate : 071 BPM P-R Int : 186 ms QRS Dur : 112 ms QT Int : 408 ms P-R-T Axes : 041 033 031 degrees QTc Int : 443 ms Normal sinus rhythm Incomplete right bundle branch block Normal ECG When compared with ECG of 10-JAN-2019 20:05, No significant change Confirmed by Reza Kruger ([id number]) on 02/26/2021 12:38:17 PM Referred By: REFERRED SELF Confirmed By:Reza Kruger
[2021-02-26] MEDS ORDERED: Albuterol HFA 8 GM Inhaler (Combivent Respimat P&T Subs) INH SCH (20:15)
[2021-02-26] MEDS ORDERED: Ipratropium HFA Inhaler (Combivent Respimat P&T Subs) INH SCH (20:15)
== END 2021-02-26 13:35 | disposition home or self-care (01) ==
LOC: ED 13:45 → 2N 13:45 → SUATTDRO 16:21 → 2N 18:32

== ENCOUNTER 2024-09-19 15:54 | Inpatient (IN) ==
[2024-09-19] MEDS: ONDANSETRON INJ 2 MG/ML 2 ML VIAL IV STA (16:21)
[2024-09-19] MEDS: SODIUM CHLORIDE 0.9% 1,000 ML IV ONE (16:22)
[2024-09-19] MEDS: MoRPHine SULFATE 4 MG/ML 1 ML CARP\\VIAL IV PRN ×2 (16:24→20:04)
[2024-09-19 16:50] LABS: Albumin Globulin Ratio 1.2 (0.9-2); Albumin Level 4.6 gm/dl (3.4-5.0); BUN Creatinine Ratio 23.1 (10-20); Bilirubin,Total 0.2 mg/dl (0.2-1.0); Calcium 10.1 mg/dl (8.6-10.3); Creatinine Clr Calc Pharmacy 105.1 ml/min; Globulin 3.8 gm/dl (2.5-4.0); Magnesium 1.8 mg/dl (1.7-2.4); Potassium 4.1 mmol/L (3.5-5.1); Total Protein 8.4 gm/dl (6.0-8.3)
[2024-09-19 16:57] LABS: Basophils # (auto) 0.04 K/uL (0.00-0.20); Basophils % (auto) 0.5 %; Eosinophils # (auto) 0.12 K/uL (0.00-0.50); Eosinophils % (auto) 1.6 %; Hematocrit (blood only) 48.3 % (42.0-52.0); Hemoglobin 15.9 g/dl (14.0-18.0); Immature Granulocytes # (auto) 0.03 K/uL (0.01-0.20); Immature Granulocytes % (auto) 0.4 %; Lymphocytes # (auto) 2.01 K/uL (1.20-3.40); Lymphocytes % (auto) 26.1 %; Mean Corpuscular Hemoglobin 27.8 pg (25.0-34.0); Mean Corpuscular Hgb Conc 32.9 g/dL (32.0-36.0); Mean Corpuscular Volume 84.6 fL (80.0-100.0); Mean Platelet Volume 11.2 fL (9.4-12.4); Monocytes # (auto) 0.51 K/uL (0.11-0.59); Monocytes % (auto) 6.6 %; Neutrophils % (auto) 64.8 %; Platelet Count 194 K/uL (130-400); RDW Coefficient of Variation 14.4 % (11.5-14.5); RDW Standard Deviation 43.8 fL (36.4-46.3); Red Blood Count 5.71 M/uL (4.70-6.10); White Blood Count 7.71 K/ul (4.8-10.8)
--- NOTE | 2024-09-19 16:59 | Emergency Department Note ---
History of Present Illness General Chief complaint: Abdominal Pain Stated complaint: ABDOMINAL PAIN Time Seen by Provider: 09/19/24 16:04 History of Present Illness Maximum Pain Intensity: 8 This is a 44-year-old male presenting to the emergency department for evaluation of left-sided abdominal pain that began earlier this morning. Patient states the pain is persistent and nonradiating. It feels similar to a previous episode of pancreatitis. He is without nausea or vomiting. He has been able to use the bathroom. No fevers or chills. No history of abdominal surgery. He did take Tylenol around 3 hours prior to arrival which did not improve his pain. Discomfort is currently rated an 8/10. He does not report any known aggravating or alleviating factors. He was able to eat lunch without difficulty today. Home Medications Medication Instructions Recorded Confirmed Type albuterol sulfate 90 mcg/actuation 2 puff inhalation Q6H PRN 10/25/22 09/19/24 Rx aerosol inhaler shortness of breath or wheezing #8.5 grams fluoxetine 10 mg capsule (Prozac) 30 mg PO QAM 10/06/23 09/19/24 History hydroxyzine HCl 50 mg tablet 50 mg PO QPM 10/24/23 09/19/24 History gabapentin 300 mg capsule 300 mg PO BID 30 days #180 caps 02/21/24 09/19/24 Rx triamcinolone acetonide 0.025 % 1 applic topical BID PRN skin 05/17/24 09/19/24 Rx topical cream irritation #80 grams cholecalciferol (vitamin D3) 50 50 mcg PO QAM 05/21/24 09/19/24 History mcg (2,000 unit) capsule omeprazole 20 mg capsule,delayed 20 mg PO BID #180 caps 05/22/24 09/19/24 Rx release amlodipine 5 mg tablet 5 mg PO QAM 05/29/24 09/19/24 History empagliflozin 25 mg tablet 25 mg PO QAM 05/29/24 09/19/24 History fenofibrate 160 mg tablet 160 mg PO QPM 05/29/24 09/19/24 History lisinopril 20 mg tablet 20 mg PO QAM 05/29/24 09/19/24 History montelukast 10 mg tablet 10 mg PO QAM 05/29/24 09/19/24 History (Singulair) tadalafil 5 mg tablet (Cialis) 5 mg PO DAILY PRN Sexual Activity 05/29/24 09/19/24 History trazodone 50 mg tablet 100 mg PO QPM 05/29/24 09/19/24 History simvastatin 20 mg tablet 20 mg PO QAM #90 tabs 06/25/24 09/19/24 Rx oxycodone 5 mg tablet 5 - 10 mg (1 - 2 x 5 mg) PO 06/26/24 09/19/24 Rx [id number] PRN pain #7 tabs cyclobenzaprine 10 mg tablet 10 mg PO TID PRN muscle spasm #90 07/24/24 09/19/24 Rx tabs aripiprazole 5 mg tablet (Abilify) 5 mg PO DAILY 09/19/24 09/19/24 History Allergies Allergy/AdvReac Type Severity Reaction Status Date / Time poison dalton extract Allergy Severe Severe Verified 09/19/24 21:50 swelling Past Med/Surg History Problem List (Updated 09/19/24 @ 23:24 by Jim Matos PA-C) Acute pancreatitis (Acute) Hypertriglyceridemia Pancreatitis S/P excision of lipoma Diabetes Arthritis Mass on back Hypogonadotropic hypogonadism in male Erectile dysfunction Hepatic steatosis Depression PTSD (post-traumatic stress disorder) Chronic back pain Anemia Anxiety ADHD COPD (chronic obstructive pulmonary disease) HLD (hyperlipidemia) HTN (hypertension) GERD (gastroesophageal reflux disease) Asthma Medical History High cholesterol Sleep apnea Unable to tolerate CPAP PTSD (post-traumatic stress disorder) HTN (hypertension) Hx of hepatitis C Completed antiviral tx "Many years ago" GERD (gastroesophageal reflux disease) Diabetes mellitus, type 2 COPD (chronic obstructive pulmonary disease) Per records, patient denies Anxiety and depression Anemia ADHD Bronchitis chronic Obesity, Class III, BMI 40-49.9 (morbid obesity) Surgical History H/O excision of mass (06/26/24) Excision Back Mass 8cm x 7cm (Right) - Dharmesh Ramirez, DO History of back surgery "Lower back - ablation" Hx of colonoscopy 2022 History of hand surgery Left Family History Father Lymphoma Hypertension Mother Alive and well Brother Diabetes Social History Smoking Status: Current every day smoker Tobacco Type: Cigarettes Cigarettes Per Day: 20; Second Hand Exposure: No; Do You Dip or Chew Tobacco: No; Hx Alcohol Use: No Hx Substance Use: No Preferred Language: Turkish Communication Ability: Effective Correctional Case Manager Required: No Beliefs That Will Affect Care: None marital status: Current Living Situation: Alone Current Living Situation Comment: Friend/rooomate current occupational status: employed current occupation: POLICE OFFICER How many Children do You have: 2 Other Information That Helps Us Care for You: No Feels Safe at Home: Yes Safety Concerns: Feels Safe At This Time during the past year weight has: increased > 10 lbs Assistive Devices: None Review of Systems A total of 10 systems reviewed and were otherwise negative Physical Exam Vital Signs Vital Signs - 24 hr 09/19/24 16:01 09/19/24 18:00 Temperature 36 C L Temperature Source Temporal Artery Scan Pulse Rate 109 H Pulse Rate [Finger] 97 H Respiratory Rate 18 18 Respiratory Effort / Characteristics Non-Labored Non-Labored Spontaneous Respiratory Depth Normal Normal Respiratory Pattern Regular Regular Blood Pressure 156/116 H Blood Pressure [Right Arm] 122/78 Blood Pressure Mean 129 Blood Pressure Mean [Right Arm] 92 Pulse Oximetry 95 94 Oxygen Delivery Method Room Air Room Air Sepsis Recent Fever Within 48 Hours No Sepsis New/Unexplained Change in Mental Status N/A Sepsis Action Taken by Nursing No Action Required VITALS: Vitals are noted on the nurse's note and reviewed by myself. Vital signs stable. GENERAL: Well-developed, well-nourished, white male, who is in no acute distress and resting comfortably. Patient is cooperative with the examination. HEAD: Normocephalic atraumatic. NECK: Supple without nuchal rigidity. No lymphadenopathy. No thyromegaly. Cervical spine is nontender. HEART: Regular rate and rhythm without murmurs gallops or rubs. LUNGS: Clear to auscultation bilaterally without wheezes, rales or rhonchi. No retractions or accessory muscle use. ABDOMEN: Positive normal bowel sounds x 4. Soft, with reproducible left-sided abdominal tenderness. No rebound or guarding. No CVA tenderness. No lower tenderness. No distinct epigastric tenderness. MUSCULOSKELETAL: No muscle atrophy, erythema, or edema noted. Full range of motion in all extremities. Course Administered Medications Enoxaparin Sodium (Enoxaparin Inj 40 Mg/0.4 Ml Syr) 40 mg SQ Q24H [facility] Stop: 10/19/24 20:59 Last Admin: 09/19/24 21:07 Dose: 40 mg Documented By: JENNY Fenofibrate (Fenofibrate Nanocrystallized 145 Mg Tablet) 145 mg PO QPM SONIA Stop: 10/19/24 21:25 Last Admin: 09/19/24 23:15 Dose: 145 mg Documented By: KRT Gabapentin (Gabapentin 300 Mg Cap) 300 mg PO BID [facility] Stop: 10/19/24 21:25 Last Admin: 09/19/24 23:15 Dose: 300 mg Documented By: KRT Hydroxyzine HCl (Hydroxyzine Hcl 25 Mg Tab) 50 mg PO QPM [facility] Stop: 10/19/24 21:25 Last Admin: 09/19/24 23:14 Dose: 50 mg Documented By: LORETO Insulin Human Regular 250 (units/ Sodium Chloride) 250 mls @ 11.94 mls/hr IV .[id number] [facility]; Protocol Stop: 10/19/24 19:44 Last Admin: 09/19/24 20:11 Dose: 0.1 units/kg/hr, 11.9 mls/hr Documented By: JENNY Co-signed By: REYNA Potassium Chloride 30 meq/ (Dextrose) 1,015 mls @ 150 mls/hr IV .Q6H46M [facility] Stop: 09/20/24 19:59 Last Infusion: 09/19/24 21:59 Dose: 150 mls/hr Documented By: Admin: 09/19/24 20:09 Dose: 125 mls/hr Documented By: JENNY Morphine Sulfate (Morphine Sulfate 4 Mg/Ml 1 Ml Carp\\Vial) 4 mg IV Q2H PRN PRN Reason: Severe Pain (7,8,9,10) on NRS Stop: 10/03/24 19:37 Last Admin: 09/19/24 20:04 Dose: 4 mg Documented By: JENNY Pantoprazole Sodium (Pantoprazole 40 Mg Tab) 40 mg PO BID [facility] Stop: 10/19/24 21:44 Last Admin: 09/19/24 23:14 Dose: 40 mg Documented By: LORETO Trazodone HCl (Trazodone Hcl 100 Mg Tab) 100 mg PO QPM SONIA Stop: 10/19/24 21:25 Last Admin: 09/19/24 23:14 Dose: 100 mg Documented By: LORETO Discontinued Medications Sodium Chloride (Nss) 1,000 mls @ 999 mls/hr IV .Q1H1M ONE Stop: 09/19/24 17:10 Last Infusion: 09/19/24 17:23 Dose: Infused Documented By: Admin: 09/19/24 16:22 Dose: 999 mls/hr Documented By: JENNY Ioversol (Optiray 320 100ml) 100 ml IV ONCE ONE Stop: 09/19/24 17:05 Last Admin: 09/19/24 17:05 Dose: 93 ml Documented By: SIDNEY Morphine Sulfate (Morphine Sulfate 4 Mg/Ml 1 Ml Carp\\Vial) 4 mg IV Q30M PRN PRN Reason: Pain Stop: 10/03/24 16:09 Last Admin: 09/19/24 18:30 Dose: 4 mg Documented By: Admin: 09/19/24 16:24 Dose: 4 mg Documented By: JENNY Morphine Sulfate (Morphine Sulfate 4 Mg/Ml 1 Ml Carp\\Vial) 4 mg IV NOW STA Stop: 09/19/24 21:49 Last Admin: 09/19/24 21:53 Dose: 4 mg Documented By: LORETO Ondansetron HCl (Ondansetron Inj 2 Mg/Ml 2 Ml Vial) 4 mg IV NOW STA Stop: 09/19/24 16:11 Last Admin: 09/19/24 16:21 Dose: 4 mg Documented By: JENNY Medical Decision Making Differential Diagnosis Differential diagnosis: Etiologies such as biliary colic, cholecystitis, hepatitis, pancreatitis, cardiac disease, pancreatitis, gastritis, peptic ulcer disease, appendicitis, cystitis, diverticulitis, mesenteric ischemia, inflammatory bowel disease, ileus, bowel obstruction, testicular/adnexal torsion, aortic pathology, shingles, as well as others were considered Laboratory Data 09/19/24 16:17 09/19/24 19:23 Lab Results 09/19/24 09/19/24 09/19/24 Range/Units 16:17 17:13 19:23 WBC 7.71 (4.8-10.8) K/ul RBC 5.71 (4.70-6.10) M/uL Hgb 15.9 (14.0-18.0) g/dl Hct 48.3 (42.0-52.0) % MCV 84.6 (80.0-100.0) fL MCH 27.8 (25.0-34.0) pg MCHC 32.9 (32.0-36.0) g/dL RDW Std Deviation 43.8 (36.4-46.3) fL RDW Coeff of Ryan 14.4 (11.5-14.5) % Plt Count 194 (130-400) K/uL MPV 11.2 (9.4-12.4) fL Immature Gran % (Auto) 0.4 % Neut % (Auto) 64.8 % Lymph % (Auto) 26.1 % Ripley % (Auto) 6.6 % Eos % (Auto) 1.6 % Baso % (Auto) 0.5 % Neut # (Auto) 5.00 (1.40-6.50) K/uL Lymph # (Auto) 2.01 (1.20-3.40) K/uL Ripley # (Auto) 0.51 (0.11-0.59) K/uL Eos # (Auto) 0.12 (0.00-0.50) K/uL Baso # (Auto) 0.04 (0.00-0.20) K/uL Immature Gran # (Auto) 0.03 (0.01-0.20) K/uL Sodium 135 L 137 (136-145) mmol/L Potassium 4.1 4.4 (3.5-5.1) mmol/L Chloride 100 103 (98-107) mmol/L Carbon Dioxide 26 26 (21-32) mmol/L Anion Gap 9 8 (3-11) BUN 25 H 24 H (6-23) mg/dl Creatinine 1.08 0.94 (0.6-1.4) mg/dl Est Cr Clr Drug Dosing 105.1 120.8 ml/min eGFR 86.24 101.88 BUN/Creatinine Ratio 23.1 H 25.5 H (10-20) Glucose 164 H 115 H (70-99(Fasting)) mg/dl Lactate 1.3 (0.4-2.0) mmol/L Calcium 10.1 9.7 (8.6-10.3) mg/dl Magnesium 1.8 (1.7-2.4) mg/dl Total Bilirubin 0.2 (0.2-1.0) mg/dl AST 24 (13-39) U/L ALT 41 (7-52) U/L Alkaline Phosphatase 74 (34-104) U/L Troponin I High Sens 6.0 (0-20) pg/ml Total Protein 8.4 H (6.0-8.3) gm/dl Albumin 4.6 (3.4-5.0) gm/dl Globulin 3.8 (2.5-4.0) gm/dl Albumin/Globulin Ratio 1.2 (0.9-2) Triglycerides 718 H (0-150) mg/dl Amylase 60 (25-115) U/L Lipase 192 H (11-82) U/L Urine Color Yellow Urine Appearance Clear (Clear) Urine pH 5.5 (4.5-7.5) Ur Specific Rogers 1.044 H (1.000-1.030) Urine Protein Negative (Negative) Urine Glucose (UA) 3+ H (Negative) Urine Ketones Negative (Negative) Urine Blood Negative (Negative) Urine Nitrite Negative (Negative) Urine Bilirubin Negative (Negative) Urine Urobilinogen Negative (Negative) Ur Leukocyte Esterase Negative (Negative) Ethyl Alcohol mg/dL < 10.0 (<10.0) mg/dl Adenovirus (PCR) Not Detected (NotDetected) B. pertussis DNA (PCR) Not Detected (NotDetected) B.parapertussis DNA PCR Not Detected (NotDetected) C. pneumoniae DNA (PCR) Not Detected (NotDetected) Coronavirus OC43 (PCR) Not Detected (NotDetected) Coronavirus HKU1 (PCR) Not Detected (NotDetected) Coronavirus 229E (PCR) Not Detected (NotDetected) SARS-CoV-2 (PCR) Not Detected (NotDetected) Coronavirus NL63 (PCR) Not Detected (NotDetected) Human Metapneumovir PCR Not Detected (NotDetected) Influenza Type A (PCR) Not Detected (NotDetected) Influenza Type B (PCR) Not Detected (NotDetected) M. pneumoniae (PCR) Not Detected (NotDetected) Parainfluenza 1 (PCR) Not Detected (NotDetected) Parainfluenza 2 (PCR) Not Detected (NotDetected) Parainfluenza 3 (PCR) Not Detected (NotDetected) Parainfluenza 4 (PCR) Not Detected (NotDetected) RSV (PCR) Not Detected (NotDetected) Entero/Rhino (PCR) Not Detected (NotDetected) Imaging Data Radiologist's Impression: Abdomen/Pelvis CT 09/19/24 16:10 EXAM: CT Abdomen and Pelvis With Intravenous Contrast INDICATION: Left abdominal pain. TECHNIQUE: Axial computed tomography images of the abdomen and pelvis with intravenous contrast. Sagittal and coronal reformatted images were created and reviewed. This CT exam was performed using one or more of the following dose reduction techniques: automated exposure control, adjustment of the mA and/or kV according to patient size, and/or use of iterative reconstruction technique. CONTRAST: 93ml of Optiray 320 was administered intravenously. COMPARISON: 01/11/2019 FINDINGS: Limitations: None. Lung bases: No abnormality noted. Pleural space: No visualized pleural effusion or pneumothorax. Heart: No abnormality noted. Mediastinum: No abnormality noted. ABDOMEN: Liver: Significant development of hepatic steatosis with areas of sparing. The liver is enlarged to approximately 28.9 cm. Gallbladder and bile ducts: No calcified stones or surrounding fluid. Pancreas: The distal pancreas is inflamed mildly. Homogeneous pancreatic enhancement without mass, ductal dilatation or calcification. No peripancreatic fluid. No gas in the pancreatic bed. Spleen: The spleen is enlarged measuring 14.4 cm long. Adrenals: No significant abnormality noted. Kidneys and ureters: Normal enhancement. No mass, hydronephrosis or visualized stone. Stomach and bowel: No distension or mucosal thickening. No inflammation noted. PELVIS: Appendix: Well seen and appears normal. Bladder: No filling defects to suggest mass or large stone. No inflammation. Reproductive: No abnormalities noted. ABDOMEN and PELVIS: Intraperitoneal space: No free air. No significant fluid collection. Bones/joints: No acute changes. Soft tissues: There is a tiny umbilical hernia containing fat. Small fat-containing right inguinal hernia. Vasculature: Mild atherosclerotic calcification of the aorta and iliac arteries. No aneurysm or dissection. Lymph nodes: No pathologically enlarged lymph nodes. IMPRESSION: 1. Mild acute distal pancreatitis. 2. Markedly fatty enlarged liver. 3. Splenomegaly. ACT 112: Negative or not required by law. Electronically signed by Cynthia Shelley 09-19-2024 5:15 PM [facility] Narrative Physical exam and history were performed. Nursing notes, EMR, and Medication List were personally reviewed. No social concerns were identified as barriers to patients care. Patient appears to have left-sided abdominal pain bringing him to the ER. There is a past history of pancreatitis. IV access was established and labs were obtained. Patient was hydrated with normal saline and given IV morphine and IV Zofran. He was sent to CT scan for imaging of his abdomen and pelvis. An order was placed for continuous cardiac monitoring. The monitor shows a rate of 72 with normal sinus rhythm. Patient's blood work is as above and was reviewed. He does not have a significantly elevated white blood cell count, gross anemia, bandemia, or significant electrolyte imbalance. Lipase is elevated at 192. Amylase is normal. Troponin is negative. Transaminases are not diagnostic. BioFire negative. CT scan was performed and reviewed by myself and radiology, and does show tail pancreatitis, which does correlate with his symptoms. I did discuss options of care with the patient, including discharge home versus staying in the hospital. The patient has required several doses of IV analgesia and escalation of care is felt to be necessary. Case was discussed with the on- call hospitalist team who agreed to evaluate the patient here in the ER. Please see their dictation for further patient course, plan, and disposition. The chart was completed utilizing [employer] Voice Recognition Software. Grammatical errors, random word insertions, pronoun errors, and incomplete sentences are an occasional consequence of this system due to software limitations, ambient noise, and hardware issues. Any formal questions or concerns about the content, text, or information contained within the body of this dictation should be directly addressed to the provider for clarification. Impression & Plan Acute pancreatitis Discharge Plan Visit Data Chief Complaint: Abdominal Pain Stated Complaint: ABDOMINAL PAIN ED Provider: Avery Miner ED Midlevel Provider: Jim Matos Discharge Problem: Acute pancreatitis Patient Disposition: Admitted As Inpatient Discharge Instructions Interventions: ED Discharge Assessment Last Done: 09/19/24 21:17
[2024-09-19] MEDS: OPTIRAY 320 100ml IV ONE (17:05)
--- NOTE | 2024-09-19 17:15 | CT Scan Report ---
EXAM: CT Abdomen and Pelvis With Intravenous Contrast INDICATION: Left abdominal pain. TECHNIQUE: Axial computed tomography images of the abdomen and pelvis with intravenous contrast. Sagittal and coronal reformatted images were created and reviewed. This CT exam was performed using one or more of the following dose reduction techniques: automated exposure control, adjustment of the mA and/or kV according to patient size, and/or use of iterative reconstruction technique. CONTRAST: 93ml of Optiray 320 was administered intravenously. COMPARISON: 01/11/2019 FINDINGS: Limitations: None. Lung bases: No abnormality noted. Pleural space: No visualized pleural effusion or pneumothorax. Heart: No abnormality noted. Mediastinum: No abnormality noted. ABDOMEN: Liver: Significant development of hepatic steatosis with areas of sparing. The liver is enlarged to approximately 28.9 cm. Gallbladder and bile ducts: No calcified stones or surrounding fluid. Pancreas: The distal pancreas is inflamed mildly. Homogeneous pancreatic enhancement without mass, ductal dilatation or calcification. No peripancreatic fluid. No gas in the pancreatic bed. Spleen: The spleen is enlarged measuring 14.4 cm long. Adrenals: No significant abnormality noted. Kidneys and ureters: Normal enhancement. No mass, hydronephrosis or visualized stone. Stomach and bowel: No distension or mucosal thickening. No inflammation noted. PELVIS: Appendix: Well seen and appears normal. Bladder: No filling defects to suggest mass or large stone. No inflammation. Reproductive: No abnormalities noted. ABDOMEN and PELVIS: Intraperitoneal space: No free air. No significant fluid collection. Bones/joints: No acute changes. Soft tissues: There is a tiny umbilical hernia containing fat. Small fat-containing right inguinal hernia. Vasculature: Mild atherosclerotic calcification of the aorta and iliac arteries. No aneurysm or dissection. Lymph nodes: No pathologically enlarged lymph nodes. IMPRESSION: 1. Mild acute distal pancreatitis. 2. Markedly fatty enlarged liver. 3. Splenomegaly. ACT 112: Negative or not required by law. Electronically signed by Cynthia Shelley 09-19-2024 5:15 PM
[2024-09-19 17:21] LABS: Adenovirus PCR Not Detected (NotDetected); Bordetella parapertussis PCR Not Detected (NotDetected); Bordetella pertussis PCR Not Detected (NotDetected); Chlamydia pneumoniae PCR Not Detected (NotDetected); Coronavirus 229E PCR Not Detected (NotDetected); Coronavirus CoV-2 (COVID19)PCR Not Detected (NotDetected); Coronavirus HKU1 PCR Not Detected (NotDetected); Coronavirus NL63 PCR Not Detected (NotDetected); Coronavirus OC43PCR Not Detected (NotDetected); Human Metapneumovirus PCR Not Detected (NotDetected); Influenza A PCR Not Detected (NotDetected); Influenza B PCR Not Detected (NotDetected); Mycoplasma pneumoniae PCR Not Detected (NotDetected); Parainfluenza Virus 1 PCR Not Detected (NotDetected); Parainfluenza Virus 2 PCR Not Detected (NotDetected); Parainfluenza Virus 3 PCR Not Detected (NotDetected); Parainfluenza Virus 4 PCR Not Detected (NotDetected); Respiratory Syncytial VirusPCR Not Detected (NotDetected); Rhinovirus/Enterovirus PCR Not Detected (NotDetected)
[2024-09-19 17:21] LABS: Appearance Urine Clear (Clear); Bilirubin Urine Negative (Negative); Blood Urine Negative (Negative); Color Urine Yellow; Glucose Urine UA 3+ (Negative); Ketones Urine Negative (Negative); Leukocyte Esterase Urine Negative (Negative); Nitrite Urine Negative (Negative); Protein Urine Negative (Negative); Specific Gravity Urine 1.044 (1.000-1.030); Urobilinogen Urine Negative (Negative); pH Urine 5.5 (4.5-7.5)
--- NOTE | 2024-09-19 18:52 | History & Physical Report ---
Date of Service September 19, 2024 Assessment & Plan (1) Pancreatitis: Plan: Eleazar is a 44-year-old male with a history of fatty liver disease, recurrent pancreatitis without alcohol use in the last 10 years, DM 2, RADHA intolerant of CPAP, hypertension, hyperlipidemia who presents with worsening onset of left upper and left lower abdominal pain which feels similar to prior pancreatitis but much more severe. He reports he has not had any alcohol intake in several y ears, and is not sure what his pancreatitis has been due to in the past. He does not have a history of biliary disease/obstruction/stones. He does have high triglycerides and on admission triglycerides were acutely elevated to nearly 800. He is admitted for suspected hypertriglyceridemia induced pancreatitis. Additional etiology/contribution includes Jardiance. Pancreatitis due to hypertriglyceridemia Lactate ordered No leukocytosis CTA/P: Mild acute distal pancreatitis, fatty enlarged liver, splenomegaly. No obstruction. No evidence of ischemia/pneumatosis. No evidence of biliary disease. Transaminases/bilirubin are normal Triglyceride level 718 N.p.o. with sips/chips. Insulin gtt. Triglyceride levels every 12 hour. Continue insulin gtt until triglyceride level is below 500. Continue D5+30KCl and adjust rate to maintain BSG level [id number]. Will start D5 at a rate of 125. If below goal range, increase rate by 25 cc/h and if above range decreased by 25 cc/h. If BSG is less than 100 give one half amp of D50 and increase rate by 50 cc/h. If rate is greater than 250, then notify provider to switch to D10 to minimize total volume. Discussed with nurse at time of admission. BMP checks every 4 hours. If Continue fenofibrate. No evidence of hypocalcemia, endorgan dysfunction, or impaired tissue perfusion at time of admission. Lactate ordered on admission Patient is also on Jardiance. This can rarely cause or contribute to pancreatitis, and will hold on admission Once improved we will need to continue a low-fat diet Type II DM Jardiance held as this can contribute to/rarely cause pancreatitis Patient is currently on weight-based insulin gtt. drip for hypertriglyceridemia as noted. When able to be discontinued can transition to basal/bolus weight- based Hourly glucose checks with D5 KCl infusion until triglycerides less than 500 mL Anxiety/depression/PTSD Continue Abilify, trazodone, fluoxetine RADHA CPAP intolerant SpO2 as needed to maintain saturations greater than 90% Hypertension Continue lisinopril, amlodipine. Renal function is normal on admission. DVT prophylaxis: Lovenox Disposition: PCU while on high-dose insulin gtt. with dextrose titration CODE STATUS: Full code Diet: Clears (2) High cholesterol: (3) Sleep apnea: (4) HTN (hypertension): (5) Hx of hepatitis C: (6) Diabetes mellitus, type 2: (7) COPD (chronic obstructive pulmonary disease): (8) Hypertriglyceridemia: History of Present Illness Primary Care Provider: Daily Jansen DO Eleazar is a 44-year-old male with past medical history of prediabetes, hypertension, hyperlipidemia, GERD, COPD, anxiety, depression, RADHA on BiPAP, PTSD, tobacco use, testosterone replacement for hypogonadism who presents with LEFT sided abdominal pain Pain started this morning. Left upper and some LLQ tenderness to palpation. Much worse with meals. BMs brown, nothing light/allen colored. No blood/no black BMs. No vomiting, some pain with nausea. 8/10 pain at time of admission. Constant since this morning. No fevers or chills. No sweats No chest pain or shortness of breath History of recurrent pancreatitis, last episode was a year ago. Still has his gallbladder, no hx of stones/obstruction. Hx high HDL, not sure if he has high cholesteral No recent medication changes Did have a large amount of chicken wings last night, and a large amount of ham this morning Reviewed med list at the bedside. Took all morning medications Cigarette use, 1 pack per three days No ETOH use in the last 10 years. history of fatty liver disease from cholesterol NKMA Full Code Allergies Allergy/AdvReac Type Severity Reaction Status Date / Time poison [place] Allergy Severe Swelling Uncoded 09/19/24 17:56 Home Medications Medication Instructions Recorded Confirmed Type albuterol sulfate 90 mcg/actuation 2 puff inhalation Q6H PRN 10/25/22 09/19/24 Rx aerosol inhaler shortness of breath or wheezing #8.5 grams fluoxetine 10 mg capsule (Prozac) 30 mg PO QAM 10/06/23 09/19/24 History hydroxyzine HCl 50 mg tablet 50 mg PO QPM 10/24/23 09/19/24 History gabapentin 300 mg capsule 300 mg PO BID 30 days #180 caps 02/21/24 09/19/24 Rx triamcinolone acetonide 0.025 % 1 applic topical BID PRN skin 05/17/24 09/19/24 Rx topical cream irritation #80 grams cholecalciferol (vitamin D3) 50 50 mcg PO QAM 05/21/24 09/19/24 History mcg (2,000 unit) capsule omeprazole 20 mg capsule,delayed 20 mg PO BID #180 caps 05/22/24 09/19/24 Rx release amlodipine 5 mg tablet 5 mg PO QAM 05/29/24 09/19/24 History empagliflozin 25 mg tablet 25 mg PO QAM 05/29/24 09/19/24 History fenofibrate 160 mg tablet 160 mg PO QPM 05/29/24 09/19/24 History lisinopril 20 mg tablet 20 mg PO QAM 05/29/24 09/19/24 History montelukast 10 mg tablet 10 mg PO QAM 05/29/24 09/19/24 History (Singulair) tadalafil 5 mg tablet (Cialis) 5 mg PO DAILY PRN Sexual Activity 05/29/24 09/19/24 History trazodone 50 mg tablet 100 mg PO QPM 05/29/24 09/19/24 History simvastatin 20 mg tablet 20 mg PO QAM #90 tabs 06/25/24 09/19/24 Rx oxycodone 5 mg tablet 5 - 10 mg (1 - 2 x 5 mg) PO 06/26/24 09/19/24 Rx [id number] PRN pain #7 tabs cyclobenzaprine 10 mg tablet 10 mg PO TID PRN muscle spasm #90 07/24/24 09/19/24 Rx tabs aripiprazole 5 mg tablet (Abilify) 5 mg PO DAILY 09/19/24 09/19/24 History Past Med/Surg History Problem List (Updated 09/19/24 @ 19:21 by Andriy Gregory MD) Hypertriglyceridemia Pancreatitis S/P excision of lipoma Diabetes Arthritis Mass on back Hypogonadotropic hypogonadism in male Erectile dysfunction Hepatic steatosis Depression PTSD (post-traumatic stress disorder) Chronic back pain Anemia Anxiety ADHD COPD (chronic obstructive pulmonary disease) HLD (hyperlipidemia) HTN (hypertension) GERD (gastroesophageal reflux disease) Asthma Medical History High cholesterol Sleep apnea Unable to tolerate CPAP PTSD (post-traumatic stress disorder) HTN (hypertension) Hx of hepatitis C Completed antiviral tx "Many years ago" GERD (gastroesophageal reflux disease) Diabetes mellitus, type 2 COPD (chronic obstructive pulmonary disease) Per records, patient denies Anxiety and depression Anemia ADHD Bronchitis chronic Obesity, Class III, BMI 40-49.9 (morbid obesity) Surgical History H/O excision of mass (06/26/24) Excision Back Mass 8cm x 7cm (Right) - Dharmesh Ramirez, History of back surgery "Lower back - ablation" Hx of colonoscopy 2022 History of hand surgery Left Family History Father Lymphoma Hypertension Mother Alive and well Brother Diabetes Social History Smoking Status: Current every day smoker Tobacco Type: Cigarettes Cigarettes Per Day: 7-8; Second Hand Exposure: No; Do You Dip or Chew Tobacco: No; Hx Alcohol Use: No Hx Substance Use: Yes Non-Prescribed Medications: IV Drugs, Marijuana and Methamphetamines Last Used Substance Other:: 2011 Preferred Language: Micronesian Communication Ability: Effective Campus Coordinator Required: No Beliefs That Will Affect Care: None marital status: Current Living Situation: Significant Other Current Living Situation Comment: Friend/rooomate current occupational status: employed current occupation: [employer] How many Children do You have: 2 Feels Safe at Home: Yes during the past year weight has: increased > 10 lbs Assistive Devices: None Physical Exam Physical Exam: General: A&Ox3. NAD. Cooperative. Appears uncomfortable but nontoxic HEENT: Atraumatic, normocephalic. Vision and hearing grossly intact Pulm: CTAB A&P. -wheezes, -rales, -rhonchi. Symmetrical chest rise. No increased work of breathing. No respiratory distress. Cardiac: RRR, -mrg. Radial pulses intact and symmetrical. Abdominal: Softly distended. Slightly tympanitic tender to palpation at left upper and left lower quadrant, no rebound tenderness or involuntary guarding. Abdomen is not rigid Extremities: Warm and dry Results & Data Results & Data Vital Signs (Past 12 Hours) Vital Signs Temp Pulse Pulse Resp BP BP Pulse Ox 09/19/24 18:00 97 H 18 122/78 94 09/19/24 16:01 36 C L 109 H 18 156/116 H 95 O2 Del Method 09/19/24 18:00 Room Air 09/19/24 16:01 Room Air PG Care Time/CCT Total # of Minutes Spent Total Time Spent with Patient: Total time spent is greater than 50% in coordination of care (as documented) at patient's floor/unit and/or counseling patient: Coding Level of Care Code 01671 INT INP/OBS CARE 3/75MIN Diagnoses Pancreatitis K85.90 High cholesterol E78.00 Sleep apnea G47.30 HTN (hypertension) I10 Hx of hepatitis C Z86.19 Diabetes mellitus, type 2 E11.9 COPD (chronic obstructive pulmonary disease) J44.9 Hypertriglyceridemia E78.1
[2024-09-19] MEDS ORDERED: DEXTROSE 50% 50 ML SYRINGE IV PRN (19:31)
[2024-09-19] MEDS ORDERED: MoRPHine SULFATE 2 MG/ML CARP IV PRN (19:38)
[2024-09-19] MEDS: POTASSIUM CHLORIDE 30 MEQ in DEXTROSE 5% 1,000 ML IV SCH (20:09)
[2024-09-19] MEDS: INSULIN REGULAR 250 UNITS in SODIUM CHLORIDE 0.9% 247.5 ML IV SCH (20:11)
[2024-09-19 21:00] LABS: BUN Creatinine Ratio 25.5 (10-20); Calcium 9.7 mg/dl (8.6-10.3); Creatinine Clr Calc Pharmacy 120.8 ml/min; Potassium 4.4 mmol/L (3.5-5.1)
[2024-09-19] MEDS: ENOXAPARIN INJ 40 MG/0.4 ML SYR SQ SCH (21:07)
[2024-09-19] MEDS ORDERED: ONDANSETRON INJ 2 MG/ML 2 ML VIAL IV PRN (21:26)
[2024-09-19] MEDS ORDERED: POLYETHYLENE (MIRALAX) 17 GM PACK PO PRN (21:26)
[2024-09-19] MEDS ORDERED: ALBUTEROL HFA 8 GM INHALER INH PRN (21:26)
[2024-09-19] MEDS ORDERED: CYCLOBENZAPRINE HCL 10 MG TAB PO PRN (21:26)
[2024-09-19] MEDS ORDERED: TRIAMCINOLONE ACET 0.025% CR 15 GM TUBE TOP PRN (21:26)
[2024-09-19] MEDS: MoRPHine SULFATE 4 MG/ML 1 ML CARP\\VIAL IV STA (21:53)
[2024-09-19] MEDS: hydrOXYzine HCl 25 MG TAB PO SCH (23:14)
[2024-09-19] MEDS: traZODone HCL 100 MG TAB PO SCH (23:14)
[2024-09-19] MEDS: PANTOprazole 40 MG TAB PO SCH (23:14)
[2024-09-19] MEDS: GABAPENTIN 300 MG CAP PO SCH (23:15)
[2024-09-19] MEDS: FENOFIBRATE NANOCRYSTALLIZED 145 MG TABLET PO SCH (23:15)
[2024-09-19] MEDS: DEXTROSE 5% 1,000 ML IV SCH (23:59)
[2024-09-20 00:38] LABS: BUN Creatinine Ratio 23.5 (10-20); Calcium 10.1 mg/dl (8.6-10.3); Creatinine Clr Calc Pharmacy 133.6 ml/min; Potassium 4.4 mmol/L (3.5-5.1)
[2024-09-20] MEDS: HYDROmorphone INJ 1 MG/ML SYRINGE IV STA (01:15)
[2024-09-20] MEDS: DEXTROSE 10% IV SCH (01:25)
[2024-09-20] MEDS: POTASSIUM CHLORIDE IV SCH (01:25)
[2024-09-20] MEDS ORDERED: HYDROmorphone INJ 0.5 MG/0.5 ML SYR IV PRN ×2 (01:55→04:59)
[2024-09-20] MEDS: HYDROmorphone INJ 0.5 MG/0.5 ML SYR IV PRN (04:37)
[2024-09-20 04:56] LABS: Basophils # (auto) 0.03 K/uL (0.00-0.20); Basophils % (auto) 0.3 %; Eosinophils # (auto) 0.02 K/uL (0.00-0.50); Eosinophils % (auto) 0.2 %; Immature Granulocytes # (auto) 0.06 K/uL (0.01-0.20); Immature Granulocytes % (auto) 0.6 %; Lymphocytes % (auto) 8.9 %; Mean Corpuscular Hemoglobin 26.8 pg (25.0-34.0); Mean Corpuscular Hgb Conc 31.9 g/dL (32.0-36.0); Mean Corpuscular Volume 83.9 fL (80.0-100.0); Mean Platelet Volume 10.8 fL (9.4-12.4); Monocytes # (auto) 0.66 K/uL (0.11-0.59); Monocytes % (auto) 6.5 %; Neutrophils # (auto) 8.48 K/uL (1.40-6.50); Neutrophils % (auto) 83.5 %; Platelet Count 162 K/uL (130-400); RDW Coefficient of Variation 14.5 % (11.5-14.5); RDW Standard Deviation 44.1 fL (36.4-46.3); White Blood Count 10.15 K/ul (4.8-10.8)
[2024-09-20 05:11] LABS: BUN Creatinine Ratio 20.7 (10-20); Calcium 10.3 mg/dl (8.6-10.3); Creatinine Clr Calc Pharmacy 138.4 ml/min; Potassium 4.4 mmol/L (3.5-5.1)
[2024-09-20] MEDS: HYDROmorphone INJ 0.5 MG/0.5 ML SYR IV STA ×2 (05:59→08:14)
[2024-09-20] MEDS ORDERED: NALOXONE HCL 0.4 MG/1 ML VIAL/CARP IV PRN (06:31)
[2024-09-20] MEDS: HYDROmorphone INJ 1 MG/ML SYRINGE IV PRN ×2 (08:11→10:50)
[2024-09-20] MEDS ORDERED: GLUCOSE 40% GEL 15 GM TUBE PO PRN (08:21)
[2024-09-20] MEDS ORDERED: GLUCOSE 10 TAB/TUBE PO PRN (08:21)
[2024-09-20] MEDS ORDERED: DEXTROSE 50% 50 ML SYRINGE IV PRN (08:21)
[2024-09-20] MEDS ORDERED: GLUCAGON FOR INJ 1 MG VIAL SQ PRN (08:21)
[2024-09-20] MEDS ORDERED: CARBOHYDRATES FOR HYPOGLYCEMIA PO PRN (08:21)
[2024-09-20 08:42] LABS: BUN Creatinine Ratio 18.1 (10-20); Calcium 10.5 mg/dl (8.6-10.3); Creatinine Clr Calc Pharmacy 136.8 ml/min; Potassium 4.8 mmol/L (3.5-5.1)
[2024-09-20 08:54] LABS: Estimated Average Glucose 154 mg/dl
[2024-09-20] MEDS: OPTIRAY 320 100ml IV ONE (08:58)
--- NOTE | 2024-09-20 09:23 | CT Scan Report ---
CT abdomen w IV con CLINICAL HISTORY: known pancreatitis, worsening abd pain TECHNIQUE: Helical axial images of the abdomen were obtained. Automated dose lowering techniques and/ or adjustment according to patient size were utilized for this exam. This exam was performed with in travenous contrast. CT DOSE: 928.45 mGy.cm Comparison: Comparison is made to CT abdomen pelvis 09/19/2024 FINDINGS: Lower chest: Bibasilar atelectasis versus scarring is seen. Liver: Hepatic steatosis is noted with hepatomegaly. Focal fatty sparing is seen about the gallbladde r fossa. Gallbladder and biliary tree: No calcified gallstones. Normal caliber wall. No intra- or extrahepatic biliary ductal dilation. Pancreas: Interval worsening of findings of distal pancreatitis. There is now hypoenhancement of the distal pancreatic parenchyma. Surrounding fat stranding has increased without well-defined fluid odalys ections. Spleen: Unremarkable. Adrenals: Unremarkable. Kidneys and ureters: Unremarkable. Bowel: Unremarkable. Lymph nodes Retroperitoneal: Subcentimeter lymph nodes are noted. Mesenteric: Unremarkable. Peritoneum: Normal. Vessels: Atherosclerotic calcifications are seen. Abdominal wall: Unremarkable. Bones: Degenerative changes in the visualized spine. IMPRESSION: 1. Interval worsening of pancreatitis with hypoenhancing regions concerning for an element of necrot izing pancreatitis at the tail. No acute peripancreatic fluid collections are seen. 2. Hepatic steatosis. 3. Additional findings as above. ACT 112: Negative or not required by law. Electronically signed by: Jacky Baumann M.D. 09/20/2024 9:22 AM
[2024-09-20] MEDS: amLODIPine BESYLATE 5 MG TAB PO SCH (09:38)
[2024-09-20] MEDS: lisinopril 20 MG TAB PO SCH (09:38)
[2024-09-20] MEDS: FLUoxetine HCL 10 MG CAP PO SCH (09:50)
[2024-09-20] MEDS: SIMVASTATIN 20 MG TAB PO SCH (09:50)
[2024-09-20] MEDS: MONTELUKAST SODIUM 10 MG TABLET PO SCH (09:50)
[2024-09-20] MEDS: ARIPiprazole 5 MG TAB PO SCH (09:50)
--- NOTE | 2024-09-20 10:53 | Gastrointestinal Consultation ---
Date of Consultation September 20, 2024 Assessment & Plan (1) Acute pancreatitis: Plan 44 year old male w/ history of asthma, HTN, dyslipidemia, COPD, ADHD, anxiety, depression, PTSD, fatty liver, DM and others below admitted w/ abd pain, imaging concerning for pancreatitis. He had an episode of pancreatitis in 2022 thought related to hypertriglyceridemia with triglycerides of 511. He underwent EUS evaluation without any abnormal pancreatic anatomy. He reports on going abd pain, Tbili 0.2 AST 24 ALT 41 ALKP 74 Lipase 192 Triglycerides 718 ETOH level negative this admission but dose Uses ETOH periodically, Daily tobacco use, CTAP 2023 w/ interval worsening of pancreatitis with hypoenhancing regions concerning for an element of necrotizing pancreatitis at the tail Supportive cares Maintain NPO status LR 200 mL/hr, assess for adequate hydration w/ 2 pt drop in HGB Antiemetics PRN Analgesia PRN Recommend ETOH cessation moving forward Smoking cessation encouraged Will review imaging w/ attending As he is afebrile w/o leukocytosis no current indication for ABX therapy, will continue to assess his clinical status He should follow up with his care team regarding elevated triglycerides OP follow up with [facility] I spent a total of 60 minutes on the date of service in review of patient's record, and previously obtained information in person and appropriate medical visit, discussion and education of plan, with patient and/or caregiver, placing orders for tests/referral/procedures as medically necessary and documentation of pertinent clinical information in patient's medical records for their visit today.Thank you for allowing us to participate in the care of this patient. Please call with any acute changes, questions or concerns. Please see addendum below with additional recommendation from my supervising physician. Supervising Physician Co-Signing Physician Notes I examined the patient and reviewed the medical record, laboratory data and imaging studies. I agree with the assessment and plan of care as suggested by the advanced practice provider. Patient with recurrent episodes of pancreatitis he states he last had a drink 3 months ago however his triglycerides are also elevated he is also on meds which can cause pancreatitis at the current time I would 1. Keep n.p.o. except for ice chips and water 2. IV fluids and analgesics 3. Check ultrasound to ensure there are no gallstones 4. Endocrinology call evaluation for better management of his hypertriglyceridemia may also see cardiology 5. Patient is on 3 drugs which could possibly cause pancreatitis including simvastatin lisinopril and omeprazole I would stop the omeprazole and consult the primary team to find alternatives for simvastatin and lisinopril Thank you for allowing us to take part in the care of your patient we will continue to follow him with you History of Present Illness Reason for Consultation: ?necrotizing pancreatitis Requesting Physician: Thais Hitchcock MD Attending Physician: Thais Hitchcock MD History of Present Illness 44 year old male w/ history of asthma, HTN, dyslipidemia, COPD, ADHD, anxiety, depression, PTSD, fatty liver, DM and others below admitted w/ abd pain, imaging concerning for pancreatitis. GI was asked to evaluate. Pt was seen and evaluated, chart reviewed. Family at bedside. Of note, he was admitted in 2022 w/elevated lipase and imaging w/ acute pancreatitis w/o necrosis, thought related to hypertriglyceridemia with triglycerides of 511. He underwent EUS evaluation without any abnormal pancreatic anatomy. Notes that since his episode of pancreatitis in 2022 he has been maintained on fenofibrate. Suggests he was feeling well until he developed severe upper and left sided abd pain yesterday. This progressively worsened, associated w/ nausea but no vomiting. No change in bowel habits. Daily stools. No black or bloody stools. No fever, chills, CP, SOB. Follows w/ [facility], last seen by Debra Magaña PA-C and has an upcoming colonoscopy in 2024. Tbili 0.2 AST 24 ALT 41 ALKP 74 Lipase 192 Triglycerides 718 ETOH level negative this admission Uses ETOH periodically, suggests last use was about 3 months ago Daily tobacco use, 1 pack of cigarettes will last about 2/3 days CTAP 2023: Interval worsening of pancreatitis with hypoenhancing regions concerning for an element of necrotizing pancreatitis at the tail. No acute peripancreatic fluid collections are seen.Hepatic steatosis. Additional findings as above. CTAP 2023: Mild acute distal pancreatitis. . Markedly fatty enlarged liver. Splenomegaly. EUS 2022: There was no sign of significant pathology in the ampulla. - There was no sign of significant pathology in the common bile duct. - There was no sign of significant pathology in the gallbladder. - There was abnormal echogenicity in the visualized portion of the liver. This was hyperechoic. Tissue has not been obtained. However, the endosonographic appearance is consistent with fatty infiltration. - There was no sign of significant pathology in the entire pancreas. - Endosonographic images of the left adrenal gland were unremarkable. - No specimens collected. EGD 2022: normal esophagus, z-line regular, normal stomach, normal duodenum Colonoscopy 2021: preparation of the colon was poor, entire colon is normal, no obvious evidence of IBD, no specimens collected EGD 2020: Normal esophagus. Z-line regular, 40 cm from the incisors. Normal stomach. Normal examined duodenum. No specimens collected. Allergies Allergy/AdvReac Type Severity Reaction Status Date / Time poison dalton extract Allergy Severe Severe Verified 09/19/24 21:50 swelling Home Medications Medication Instructions Recorded Confirmed Type albuterol sulfate 90 mcg/actuation 2 puff inhalation Q6H PRN 10/25/22 09/19/24 Rx aerosol inhaler shortness of breath or wheezing #8.5 grams fluoxetine 10 mg capsule (Prozac) 30 mg PO QAM 10/06/23 09/19/24 History hydroxyzine HCl 50 mg tablet 50 mg PO QPM 10/24/23 09/19/24 History gabapentin 300 mg capsule 300 mg PO BID 30 days #180 caps 02/21/24 09/19/24 Rx triamcinolone acetonide 0.025 % 1 applic topical BID PRN skin 05/17/24 09/19/24 Rx topical cream irritation #80 grams cholecalciferol (vitamin D3) 50 50 mcg PO QAM 05/21/24 09/19/24 History mcg (2,000 unit) capsule omeprazole 20 mg capsule,delayed 20 mg PO BID #180 caps 05/22/24 09/19/24 Rx release amlodipine 5 mg tablet 5 mg PO QAM 05/29/24 09/19/24 History empagliflozin 25 mg tablet 25 mg PO QAM 05/29/24 09/19/24 History fenofibrate 160 mg tablet 160 mg PO QPM 05/29/24 09/19/24 History lisinopril 20 mg tablet 20 mg PO QAM 05/29/24 09/19/24 History montelukast 10 mg tablet 10 mg PO QAM 05/29/24 09/19/24 History (Singulair) tadalafil 5 mg tablet (Cialis) 5 mg PO DAILY PRN Sexual Activity 05/29/24 09/19/24 History trazodone 50 mg tablet 100 mg PO QPM 05/29/24 09/19/24 History simvastatin 20 mg tablet 20 mg PO QAM #90 tabs 06/25/24 09/19/24 Rx oxycodone 5 mg tablet 5 - 10 mg (1 - 2 x 5 mg) PO 06/26/24 09/19/24 Rx .[id number] PRN pain #7 tabs cyclobenzaprine 10 mg tablet 10 mg PO TID PRN muscle spasm #90 07/24/24 09/19/24 Rx tabs aripiprazole 5 mg tablet (Abilify) 5 mg PO DAILY 09/19/24 09/19/24 History Patient History Medical History High cholesterol Sleep apnea Unable to tolerate CPAP PTSD (post-traumatic stress disorder) HTN (hypertension) Hx of hepatitis C Completed antiviral tx "Many years ago" GERD (gastroesophageal reflux disease) Diabetes mellitus, type 2 COPD (chronic obstructive pulmonary disease) Per records, patient denies Anxiety and depression Anemia ADHD Bronchitis chronic Obesity, Class III, BMI 40-49.9 (morbid obesity) Surgical History H/O excision of mass (06/26/24) Excision Back Mass 8cm x 7cm (Right) - Dharmesh Raimrez, History of back surgery "Lower back - ablation" Hx of colonoscopy 2022 History of hand surgery Left Family History Father Lymphoma Hypertension Mother Alive and well Brother Diabetes Social History Smoking Status: Current every day smoker Tobacco Type: Cigarettes Cigarettes Per Day: 20; Second Hand Exposure: No; Do You Dip or Chew Tobacco: No; Hx Alcohol Use: No Hx Substance Use: No Preferred Language: [place] Communication Ability: Effective Accountant Supervisor Required: No Beliefs That Will Affect Care: None marital status: Current Living Situation: Alone Current Living Situation Comment: Friend/rooomate current occupational status: employed current occupation: RECONCILIATION CLERK How many Children do You have: 2 Other Information That Helps Us Care for You: No Feels Safe at Home: Yes Safety Concerns: Feels Safe At This Time during the past year weight has: increased > 10 lbs Assistive Devices: None Review of Systems Review of Systems: All other findings negative except as noted in HPI. Physical Exam Constitutional: WD/WN, vitals as above Respiratory: normal respiratory effort wearing O2 Cardiovascular: Rate/Rhythm: regular rhythm and + tachycardic Gastrointestinal (Abdomen): Percussion/Palpation: + abdomen tender and abdomen soft; no guarding and abdomen not rigid Skin: no rashes, warm and dry Results & Data Vital Signs (Past 12 Hours) Vital Signs Temp Pulse Pulse Resp BP BP Pulse Ox 09/20/24 08:00 115 H 09/20/24 07:23 37.3 C 127 H 17 155/96 H 94 09/20/24 03:03 36.8 C 90 16 148/91 H 98 09/19/24 23:47 O2 Del Method O2 Flow Rate 09/20/24 08:00 09/20/24 07:23 Nasal Cannula 4 09/20/24 03:03 Room Air 09/19/24 23:47 Nasal Cannula 2 Laboratory Results 09/20/24 09/20/24 09/20/24 Range/Units 08:02 07:59 07:09 WBC (4.8-10.8) K/ul RBC (4.70-6.10) M/uL Hgb (14.0-18.0) g/dl Hct (42.0-52.0) % MCV (80.0-100.0) fL MCH (25.0-34.0) pg MCHC (32.0-36.0) g/dL RDW Std Deviation (36.4-46.3) fL RDW Coeff of Ryan (11.5-14.5) % Plt Count (130-400) K/uL MPV (9.4-12.4) fL Immature Gran % (Auto) % Neut % (Auto) % Lymph % (Auto) % Cotton % (Auto) % Eos % (Auto) % Baso % (Auto) % Neut # (Auto) (1.40-6.50) K/uL Lymph # (Auto) (1.20-3.40) K/uL Cotton # (Auto) (0.11-0.59) K/uL Eos # (Auto) (0.00-0.50) K/uL Baso # (Auto) (0.00-0.20) K/uL Immature Gran # (Auto) (0.01-0.20) K/uL Sodium 134 L (136-145) mmol/L Potassium 4.8 (3.5-5.1) mmol/L Chloride 98 (98-107) mmol/L Carbon Dioxide 28 (21-32) mmol/L Anion Gap 8 (3-11) BUN 15 (6-23) mg/dl Creatinine 0.83 (0.6-1.4) mg/dl Est Cr Clr Drug Dosing 136.8 ml/min eGFR 109.99 BUN/Creatinine Ratio 18.1 (10-20) Glucose 172 H (70-99(Fasting)) mg/dl POC Glucose 138 H (70-99) mg/dl Estimat Average Glucose 154 mg/dl Hemoglobin A1c 7.0 H (4.5-5.6) % Lactate (0.4-2.0) mmol/L Calcium 10.5 H (8.6-10.3) mg/dl Magnesium (1.7-2.4) mg/dl Total Bilirubin (0.2-1.0) mg/dl AST (13-39) U/L ALT (7-52) U/L Alkaline Phosphatase (34-104) U/L Troponin I High Sens (0-20) pg/ml Total Protein (6.0-8.3) gm/dl Albumin (3.4-5.0) gm/dl Globulin (2.5-4.0) gm/dl Albumin/Globulin Ratio (0.9-2) Triglycerides (0-150) mg/dl Amylase (25-115) U/L Lipase (11-82) U/L Urine Color Urine Appearance (Clear) Urine pH (4.5-7.5) Ur Specific Forest (1.000-1.030) Urine Protein (Negative) Urine Glucose (UA) (Negative) Urine Ketones (Negative) Urine Blood (Negative) Urine Nitrite (Negative) Urine Bilirubin (Negative) Urine Urobilinogen (Negative) Ur Leukocyte Esterase (Negative) Ethyl Alcohol mg/dL (<10.0) mg/dl Adenovirus (PCR) (NotDetected) B. pertussis DNA (PCR) (NotDetected) B.parapertussis DNA PCR (NotDetected) C. pneumoniae DNA (PCR) (NotDetected) Coronavirus OC43 (PCR) (NotDetected) Coronavirus HKU1 (PCR) (NotDetected) Coronavirus 229E (PCR) (NotDetected) SARS-CoV-2 (PCR) (NotDetected) Coronavirus NL63 (PCR) (NotDetected) Human Metapneumovir PCR (NotDetected) Influenza Type A (PCR) (NotDetected) Influenza Type B (PCR) (NotDetected) M. pneumoniae (PCR) (NotDetected) Parainfluenza 1 (PCR) (NotDetected) Parainfluenza 2 (PCR) (NotDetected) Parainfluenza 3 (PCR) (NotDetected) Parainfluenza 4 (PCR) (NotDetected) RSV (PCR) (NotDetected) Entero/Rhino (PCR) (NotDetected) 09/20/24 09/20/24 09/20/24 Range/Units 05:24 04:24 04:19 WBC 10.15 (4.8-10.8) K/ul RBC 5.60 (4.70-6.10) M/uL Hgb 15.0 (14.0-18.0) g/dl Hct 47.0 (42.0-52.0) % MCV 83.9 (80.0-100.0) fL MCH 26.8 (25.0-34.0) pg MCHC 31.9 L (32.0-36.0) g/dL RDW Std Deviation 44.1 (36.4-46.3) fL RDW Coeff of Ryan 14.5 (11.5-14.5) % Plt Count 162 (130-400) K/uL MPV 10.8 (9.4-12.4) fL Immature Gran % (Auto) 0.6 % Neut % (Auto) 83.5 % Lymph % (Auto) 8.9 % Cotton % (Auto) 6.5 % Eos % (Auto) 0.2 % Baso % (Auto) 0.3 % Neut # (Auto) 8.48 H (1.40-6.50) K/uL Lymph # (Auto) 0.90 L (1.20-3.40) K/uL Cotton # (Auto) 0.66 H (0.11-0.59) K/uL Eos # (Auto) 0.02 (0.00-0.50) K/uL Baso # (Auto) 0.03 (0.00-0.20) K/uL Immature Gran # (Auto) 0.06 (0.01-0.20) K/uL Sodium 133 L (136-145) mmol/L Potassium 4.4 (3.5-5.1) mmol/L Chloride 99 (98-107) mmol/L Carbon Dioxide 25 (21-32) mmol/L Anion Gap 9 (3-11) BUN 17 (6-23) mg/dl Creatinine 0.82 (0.6-1.4) mg/dl Est Cr Clr Drug Dosing 138.4 ml/min eGFR 110.40 BUN/Creatinine Ratio 20.7 H (10-20) Glucose 149 H (70-99(Fasting)) mg/dl POC Glucose 251 H 138 H (70-99) mg/dl Estimat Average Glucose mg/dl Hemoglobin A1c (4.5-5.6) % Lactate (0.4-2.0) mmol/L Calcium 10.3 (8.6-10.3) mg/dl Magnesium (1.7-2.4) mg/dl Total Bilirubin (0.2-1.0) mg/dl AST (13-39) U/L ALT (7-52) U/L Alkaline Phosphatase (34-104) U/L Troponin I High Sens (0-20) pg/ml Total Protein (6.0-8.3) gm/dl Albumin (3.4-5.0) gm/dl Globulin (2.5-4.0) gm/dl Albumin/Globulin Ratio (0.9-2) Triglycerides 367 H (0-150) mg/dl Amylase (25-115) U/L Lipase (11-82) U/L Urine Color Urine Appearance (Clear) Urine pH (4.5-7.5) Ur Specific Forest (1.000-1.030) Urine Protein (Negative) Urine Glucose (UA) (Negative) Urine Ketones (Negative) Urine Blood (Negative) Urine Nitrite (Negative) Urine Bilirubin (Negative) Urine Urobilinogen (Negative) Ur Leukocyte Esterase (Negative) Ethyl Alcohol mg/dL (<10.0) mg/dl Adenovirus (PCR) (NotDetected) B. pertussis DNA (PCR) (NotDetected) B.parapertussis DNA PCR (NotDetected) C. pneumoniae DNA (PCR) (NotDetected) Coronavirus OC43 (PCR) (NotDetected) Coronavirus HKU1 (PCR) (NotDetected) Coronavirus 229E (PCR) (NotDetected) SARS-CoV-2 (PCR) (NotDetected) Coronavirus NL63 (PCR) (NotDetected) Human Metapneumovir PCR (NotDetected) Influenza Type A (PCR) (NotDetected) Influenza Type B (PCR) (NotDetected) M. pneumoniae (PCR) (NotDetected) Parainfluenza 1 (PCR) (NotDetected) Parainfluenza 2 (PCR) (NotDetected) Parainfluenza 3 (PCR) (NotDetected) Parainfluenza 4 (PCR) (NotDetected) RSV (PCR) (NotDetected) Entero/Rhino (PCR) (NotDetected) 09/20/24 09/20/24 09/20/24 Range/Units 03:18 02:26 01:12 WBC (4.8-10.8) K/ul RBC (4.70-6.10) M/uL Hgb (14.0-18.0) g/dl Hct (42.0-52.0) % MCV (80.0-100.0) fL MCH (25.0-34.0) pg MCHC (32.0-36.0) g/dL RDW Std Deviation (36.4-46.3) fL RDW Coeff of Ryan (11.5-14.5) % Plt Count (130-400) K/uL MPV (9.4-12.4) fL Immature Gran % (Auto) % Neut % (Auto) % Lymph % (Auto) % Cotton % (Auto) % Eos % (Auto) % Baso % (Auto) % Neut # (Auto) (1.40-6.50) K/uL Lymph # (Auto) (1.20-3.40) K/uL Cotton # (Auto) (0.11-0.59) K/uL Eos # (Auto) (0.00-0.50) K/uL Baso # (Auto) (0.00-0.20) K/uL Immature Gran # (Auto) (0.01-0.20) K/uL Sodium (136-145) mmol/L Potassium (3.5-5.1) mmol/L Chloride (98-107) mmol/L Carbon Dioxide (21-32) mmol/L Anion Gap (3-11) BUN (6-23) mg/dl Creatinine (0.6-1.4) mg/dl Est Cr Clr Drug Dosing ml/min eGFR BUN/Creatinine Ratio (10-20) Glucose (70-99(Fasting)) mg/dl POC Glucose 131 H 121 H 123 H (70-99) mg/dl Estimat Average Glucose mg/dl Hemoglobin A1c (4.5-5.6) % Lactate (0.4-2.0) mmol/L Calcium (8.6-10.3) mg/dl Magnesium (1.7-2.4) mg/dl Total Bilirubin (0.2-1.0) mg/dl AST (13-39) U/L ALT (7-52) U/L Alkaline Phosphatase (34-104) U/L Troponin I High Sens (0-20) pg/ml Total Protein (6.0-8.3) gm/dl Albumin (3.4-5.0) gm/dl Globulin (2.5-4.0) gm/dl Albumin/Globulin Ratio (0.9-2) Triglycerides (0-150) mg/dl Amylase (25-115) U/L Lipase (11-82) U/L Urine Color Urine Appearance (Clear) Urine pH (4.5-7.5) Ur Specific Forest (1.000-1.030) Urine Protein (Negative) Urine Glucose (UA) (Negative) Urine Ketones (Negative) Urine Blood (Negative) Urine Nitrite (Negative) Urine Bilirubin (Negative) Urine Urobilinogen (Negative) Ur Leukocyte Esterase (Negative) Ethyl Alcohol mg/dL (<10.0) mg/dl Adenovirus (PCR) (NotDetected) B. pertussis DNA (PCR) (NotDetected) B.parapertussis DNA PCR (NotDetected) C. pneumoniae DNA (PCR) (NotDetected) Coronavirus OC43 (PCR) (NotDetected) Coronavirus HKU1 (PCR) (NotDetected) Coronavirus 229E (PCR) (NotDetected) SARS-CoV-2 (PCR) (NotDetected) Coronavirus NL63 (PCR) (NotDetected) Human Metapneumovir PCR (NotDetected) Influenza Type A (PCR) (NotDetected) Influenza Type B (PCR) (NotDetected) M. pneumoniae (PCR) (NotDetected) Parainfluenza 1 (PCR) (NotDetected) Parainfluenza 2 (PCR) (NotDetected) Parainfluenza 3 (PCR) (NotDetected) Parainfluenza 4 (PCR) (NotDetected) RSV (PCR) (NotDetected) Entero/Rhino (PCR) (NotDetected) 09/20/24 09/20/24 09/19/24 Range/Units 00:12 00:11 23:11 WBC (4.8-10.8) K/ul RBC (4.70-6.10) M/uL Hgb (14.0-18.0) g/dl Hct (42.0-52.0) % MCV (80.0-100.0) fL MCH (25.0-34.0) pg MCHC (32.0-36.0) g/dL RDW Std Deviation (36.4-46.3) fL RDW Coeff of Ryan (11.5-14.5) % Plt Count (130-400) K/uL MPV (9.4-12.4) fL Immature Gran % (Auto) % Neut % (Auto) % Lymph % (Auto) % Cotton % (Auto) % Eos % (Auto) % Baso % (Auto) % Neut # (Auto) (1.40-6.50) K/uL Lymph # (Auto) (1.20-3.40) K/uL Cotton # (Auto) (0.11-0.59) K/uL Eos # (Auto) (0.00-0.50) K/uL Baso # (Auto) (0.00-0.20) K/uL Immature Gran # (Auto) (0.01-0.20) K/uL Sodium 135 L (136-145) mmol/L Potassium 4.4 (3.5-5.1) mmol/L Chloride 102 (98-107) mmol/L Carbon Dioxide 27 (21-32) mmol/L Anion Gap 6 (3-11) BUN 20 (6-23) mg/dl Creatinine 0.85 (0.6-1.4) mg/dl Est Cr Clr Drug Dosing 133.6 ml/min eGFR 109.20 BUN/Creatinine Ratio 23.5 H (10-20) Glucose 125 H (70-99(Fasting)) mg/dl POC Glucose 113 H 121 H (70-99) mg/dl Estimat Average Glucose mg/dl Hemoglobin A1c (4.5-5.6) % Lactate (0.4-2.0) mmol/L Calcium 10.1 (8.6-10.3) mg/dl Magnesium (1.7-2.4) mg/dl Total Bilirubin (0.2-1.0) mg/dl AST (13-39) U/L ALT (7-52) U/L Alkaline Phosphatase (34-104) U/L Troponin I High Sens (0-20) pg/ml Total Protein (6.0-8.3) gm/dl Albumin (3.4-5.0) gm/dl Globulin (2.5-4.0) gm/dl Albumin/Globulin Ratio (0.9-2) Triglycerides (0-150) mg/dl Amylase (25-115) U/L Lipase (11-82) U/L Urine Color Urine Appearance (Clear) Urine pH (4.5-7.5) Ur Specific Forest (1.000-1.030) Urine Protein (Negative) Urine Glucose (UA) (Negative) Urine Ketones (Negative) Urine Blood (Negative) Urine Nitrite (Negative) Urine Bilirubin (Negative) Urine Urobilinogen (Negative) Ur Leukocyte Esterase (Negative) Ethyl Alcohol mg/dL (<10.0) mg/dl Adenovirus (PCR) (NotDetected) B. pertussis DNA (PCR) (NotDetected) B.parapertussis DNA PCR (NotDetected) C. pneumoniae DNA (PCR) (NotDetected) Coronavirus OC43 (PCR) (NotDetected) Coronavirus HKU1 (PCR) (NotDetected) Coronavirus 229E (PCR) (NotDetected) SARS-CoV-2 (PCR) (NotDetected) Coronavirus NL63 (PCR) (NotDetected) Human Metapneumovir PCR (NotDetected) Influenza Type A (PCR) (NotDetected) Influenza Type B (PCR) (NotDetected) M. pneumoniae (PCR) (NotDetected) Parainfluenza 1 (PCR) (NotDetected) Parainfluenza 2 (PCR) (NotDetected) Parainfluenza 3 (PCR) (NotDetected) Parainfluenza 4 (PCR) (NotDetected) RSV (PCR) (NotDetected) Entero/Rhino (PCR) (NotDetected) 09/19/24 09/19/24 09/19/24 Range/Units 22:11 21:10 20:08 WBC (4.8-10.8) K/ul RBC (4.70-6.10) M/uL Hgb (14.0-18.0) g/dl Hct (42.0-52.0) % MCV (80.0-100.0) fL MCH (25.0-34.0) pg MCHC (32.0-36.0) g/dL RDW Std Deviation (36.4-46.3) fL RDW Coeff of Ryan (11.5-14.5) % Plt Count (130-400) K/uL MPV (9.4-12.4) fL Immature Gran % (Auto) % Neut % (Auto) % Lymph % (Auto) % Cotton % (Auto) % Eos % (Auto) % Baso % (Auto) % Neut # (Auto) (1.40-6.50) K/uL Lymph # (Auto) (1.20-3.40) K/uL Cotton # (Auto) (0.11-0.59) K/uL Eos # (Auto) (0.00-0.50) K/uL Baso # (Auto) (0.00-0.20) K/uL Immature Gran # (Auto) (0.01-0.20) K/uL Sodium (136-145) mmol/L Potassium (3.5-5.1) mmol/L Chloride (98-107) mmol/L Carbon Dioxide (21-32) mmol/L Anion Gap (3-11) BUN (6-23) mg/dl Creatinine (0.6-1.4) mg/dl Est Cr Clr Drug Dosing ml/min eGFR BUN/Creatinine Ratio (10-20) Glucose (70-99(Fasting)) mg/dl POC Glucose 137 H 135 H 120 H (70-99) mg/dl Estimat Average Glucose mg/dl Hemoglobin A1c (4.5-5.6) % Lactate (0.4-2.0) mmol/L Calcium (8.6-10.3) mg/dl Magnesium (1.7-2.4) mg/dl Total Bilirubin (0.2-1.0) mg/dl AST (13-39) U/L ALT (7-52) U/L Alkaline Phosphatase (34-104) U/L Troponin I High Sens (0-20) pg/ml Total Protein (6.0-8.3) gm/dl Albumin (3.4-5.0) gm/dl Globulin (2.5-4.0) gm/dl Albumin/Globulin Ratio (0.9-2) Triglycerides (0-150) mg/dl Amylase (25-115) U/L Lipase (11-82) U/L Urine Color Urine Appearance (Clear) Urine pH (4.5-7.5) Ur Specific [place] (1.000-1.030) Urine Protein (Negative) Urine Glucose (UA) (Negative) Urine Ketones (Negative) Urine Blood (Negative) Urine Nitrite (Negative) Urine Bilirubin (Negative) Urine Urobilinogen (Negative) Ur Leukocyte Esterase (Negative) Ethyl Alcohol mg/dL (<10.0) mg/dl Adenovirus (PCR) (NotDetected) B. pertussis DNA (PCR) (NotDetected) B.parapertussis DNA PCR (NotDetected) C. pneumoniae DNA (PCR) (NotDetected) Coronavirus OC43 (PCR) (NotDetected) Coronavirus HKU1 (PCR) (NotDetected) Coronavirus 229E (PCR) (NotDetected) SARS-CoV-2 (PCR) (NotDetected) Coronavirus NL63 (PCR) (NotDetected) Human Metapneumovir PCR (NotDetected) Influenza Type A (PCR) (NotDetected) Influenza Type B (PCR) (NotDetected) M. pneumoniae (PCR) (NotDetected) Parainfluenza 1 (PCR) (NotDetected) Parainfluenza 2 (PCR) (NotDetected) Parainfluenza 3 (PCR) (NotDetected) Parainfluenza 4 (PCR) (NotDetected) RSV (PCR) (NotDetected) Entero/Rhino (PCR) (NotDetected) 09/19/24 09/19/24 09/19/24 Range/Units 19:23 17:13 16:17 WBC 7.71 (4.8-10.8) K/ul RBC 5.71 (4.70-6.10) M/uL Hgb 15.9 (14.0-18.0) g/dl Hct 48.3 (42.0-52.0) % MCV 84.6 (80.0-100.0) fL MCH 27.8 (25.0-34.0) pg MCHC 32.9 (32.0-36.0) g/dL RDW Std Deviation 43.8 (36.4-46.3) fL RDW Coeff of Ryan 14.4 (11.5-14.5) % Plt Count 194 (130-400) K/uL MPV 11.2 (9.4-12.4) fL Immature Gran % (Auto) 0.4 % Neut % (Auto) 64.8 % Lymph % (Auto) 26.1 % Cotton % (Auto) 6.6 % Eos % (Auto) 1.6 % Baso % (Auto) 0.5 % Neut # (Auto) 5.00 (1.40-6.50) K/uL Lymph # (Auto) 2.01 (1.20-3.40) K/uL Cotton # (Auto) 0.51 (0.11-0.59) K/uL Eos # (Auto) 0.12 (0.00-0.50) K/uL Baso # (Auto) 0.04 (0.00-0.20) K/uL Immature Gran # (Auto) 0.03 (0.01-0.20) K/uL Sodium 137 135 L (136-145) mmol/L Potassium 4.4 4.1 (3.5-5.1) mmol/L Chloride 103 100 (98-107) mmol/L Carbon Dioxide 26 26 (21-32) mmol/L Anion Gap 8 9 (3-11) BUN 24 H 25 H (6-23) mg/dl Creatinine 0.94 1.08 (0.6-1.4) mg/dl Est Cr Clr Drug Dosing 120.8 105.1 ml/min eGFR 101.88 86.24 BUN/Creatinine Ratio 25.5 H 23.1 H (10-20) Glucose 115 H 164 H (70-99(Fasting)) mg/dl POC Glucose (70-99) mg/dl Estimat Average Glucose mg/dl Hemoglobin A1c (4.5-5.6) % Lactate 1.3 (0.4-2.0) mmol/L Calcium 9.7 10.1 (8.6-10.3) mg/dl Magnesium 1.8 (1.7-2.4) mg/dl Total Bilirubin 0.2 (0.2-1.0) mg/dl AST 24 (13-39) U/L ALT 41 (7-52) U/L Alkaline Phosphatase 74 (34-104) U/L Troponin I High Sens 6.0 (0-20) pg/ml Total Protein 8.4 H (6.0-8.3) gm/dl Albumin 4.6 (3.4-5.0) gm/dl Globulin 3.8 (2.5-4.0) gm/dl Albumin/Globulin Ratio 1.2 (0.9-2) Triglycerides 718 H (0-150) mg/dl Amylase 60 (25-115) U/L Lipase 192 H (11-82) U/L Urine Color Yellow Urine Appearance Clear (Clear) Urine pH 5.5 (4.5-7.5) Ur Specific [place] 1.044 H (1.000-1.030) Urine Protein Negative (Negative) Urine Glucose (UA) 3+ H (Negative) Urine Ketones Negative (Negative) Urine Blood Negative (Negative) Urine Nitrite Negative (Negative) Urine Bilirubin Negative (Negative) Urine Urobilinogen Negative (Negative) Ur Leukocyte Esterase Negative (Negative) Ethyl Alcohol mg/dL < 10.0 (<10.0) mg/dl Adenovirus (PCR) Not Detected (NotDetected) B. pertussis DNA (PCR) Not Detected (NotDetected) B.parapertussis DNA PCR Not Detected (NotDetected) C. pneumoniae DNA (PCR) Not Detected (NotDetected) Coronavirus OC43 (PCR) Not Detected (NotDetected) Coronavirus HKU1 (PCR) Not Detected (NotDetected) Coronavirus 229E (PCR) Not Detected (NotDetected) SARS-CoV-2 (PCR) Not Detected (NotDetected) Coronavirus NL63 (PCR) Not Detected (NotDetected) Human Metapneumovir PCR Not Detected (NotDetected) Influenza Type A (PCR) Not Detected (NotDetected) Influenza Type B (PCR) Not Detected (NotDetected) M. pneumoniae (PCR) Not Detected (NotDetected) Parainfluenza 1 (PCR) Not Detected (NotDetected) Parainfluenza 2 (PCR) Not Detected (NotDetected) Parainfluenza 3 (PCR) Not Detected (NotDetected) Parainfluenza 4 (PCR) Not Detected (NotDetected) RSV (PCR) Not Detected (NotDetected) Entero/Rhino (PCR) Not Detected (NotDetected) PG Care Time/CCT Total # of Minutes Spent Total Time Spent with Patient: Total time spent is greater than 50% in coordination of care (as documented) at patient's floor/unit and/or counseling patient: Coding Level of Care Code 44984 IN/OBS CONSULT LVL 4,60M Diagnoses Acute pancreatitis K85.90
--- NOTE | 2024-09-20 11:02 | Electrocardiogram Report ---
Test Reason : Blood Pressure : */* mmHG Vent. Rate : 99 BPM Atrial Rate : 99 BPM P-R Int : 174 ms QRS Dur : 108 ms QT Int : 360 ms P-R-T Axes : 53 68 45 degrees QTcB Int : 462 ms Normal sinus rhythm Normal ECG When compared with ECG of 26-Jun-2024 08:11, QRS axis Shifted left Criteria for Lateral infarct are no longer Present Minimal criteria for Inferior infarct are no longer Present Non-specific change in ST segment in Lateral leads T wave inversion no longer evident in Lateral leads Confirmed by Denny Alonzo ([id number]) on 09/20/2024 11:02:26 AM Referred By: Confirmed By: Denny Alonzo
[2024-09-20] MEDS: NSS + 20MEQ KCL 20 MEQ/1,000 ML BAG IV SCH ×2 (11:11→21:23)
--- NOTE | 2024-09-20 11:30 | Hospitalist Progress Note ---
Date of Service September 20, 2024 Assessment & Plan (1) Pancreatitis: (2) Hypertriglyceridemia: (3) Diabetes mellitus, type 2: (4) Sleep apnea: (5) HTN (hypertension): (6) COPD (chronic obstructive pulmonary disease): (7) Hx of hepatitis C: Plan This patient is a 44-year-old male with a H/O fatty liver disease, recurrent pancreatitis without alcohol use in the last 10 years, DM 2, RADHA not on CPAP, HTN, morbid obesity, previous ATA, anxiety/depression, ADHD, current smoker, G ERD, chronic hepatitis C, and hyperlipidemia who presents with recurrent acute pancreatitis. #Acute pancreatitis-with a history of such. No gallbladder disease or gallstones noted on CT. CT shows mild acute distal pancreatitis, massive hepatomegaly and moderate splenomegaly. Lipase mildly elevated and LFTs are normal. He does not drink alcohol, calcium levels are normal. Triglycerides are elevated in the 700s but typically are in the 200-300 range and therefore his hypertriglyceridemia may be more as a result of acute pancreatitis. He is on several medications that could precipitate pancreatitis-lisinopril, omeprazole, Jardiance, and simvastatin. He had an EUS which did not show any abnormalities in 2022 Started on insulin drip for hypertriglyceridemia which is now weaned off-change to Accu-Cheks every 4 hours with supplemental NovoLog as needed for hyperglycemia.TG now down to the 300s With worsening pain, repeat CT abdomen/pelvis performed on the morning of 09/20- shows possible development of necrotizing pancreatitis of the tail. Remains afebrile, no leukocytosis Continue pain control to increase frequency of IV Dilaudid to every 2 hours Resume IV fluids given sinus tachycardia and inability to tolerate p.o. Make n.p.o. except ice chips and sips Hold off on IV antibiotics at this time unless develops fever or worsening leukocytosis Discontinue lisinopril, simvastatin, home omeprazole, and Jardiance GI recommends checking abdominal ultrasound to rule out biliary disease more explicitly Follow CBC, CMP, lipase, triglycerides in the morning #Hyperlipidemia-on simvastatin and fenofibrate as an outpatient but simvastatin can contribute to pancreatitis. Triglycerides here in the 700s likely secondary to acute pancreatitis and baseline triglycerides in the 200s-300s. Discontinue fenofibrate and start gemfibrozil 600 Mg p.o. twice daily for improved control of hypertriglyceridemia Discontinue simvastatin and trial rosuvastatin 10 mg daily-this drug is less likely to cause pancreatitis Follow lipid panel as an outpatient Follow-up with endocrinology #Type II DM-previously thought to have prediabetes but hemoglobin A1c now in the diabetic range at 7.0% Jardiance discontinued as can cause pancreatitis. He previously had a lot of nausea with metformin. He also should avoid GLP 1 agonist due to recurrent pancreatitis issues Here, check glucose every 4 hours and give supplemental NovoLog, add Lantus if needed May need Lantus as an outpatient Follow-up with endocrinology as an outpatient-asked nurse navigator to make sooner appointment #Anxiety/depression/PTSD-no acute issues Continue Abilify, trazodone, fluoxetine #RADHA/hypoxemia requiring 4L NC while sleeping-was previously on CPAP but claims he misplaced his ST card in the company removed the machine from his home He is snoring here and hypoxemic while sleeping after given opioids Order CPAP 10 cm H2O at bedtime and as needed naps while here Add incentive spirometry to encourage deep breathing to avoid further/worsening hypoxemia due to splinting/pain #Hypertension-BPs are controlled Discontinue lisinopril as can contribute to pancreatitis Increase home amlodipine to 10 mg daily and monitor BPs for worsening If have to add another agent, avoid diuretics or other antihypertensives that can cause pancreatitis #GERD Discontinue home omeprazole as this can contribute to pancreatitis-replaced with Protonix on discharge and continue Protonix while here #Hypogonadotrophic hypogonadism Holding home topical testosterone gel Follows with endocrinology DVT prophylaxis: Lovenox Disposition: Continued stay on telemetry unit while tachycardic and hypoxemic CODE STATUS: Full code Discussed all care with girlfriend at the bedside on 09/20 Admission and Anticipated Discharge Date Admission Date: September 19, 2024 Subjective Patient with ongoing severe epigastric and mid abdominal pain requiring increased dose of IV Dilaudid. He is on clear liquids diet but has not been able to eat anything. Denies shortness of breath or chest pain. He is on supplemental O2 as he has sleep apnea that is untreated. He is making urine. Last bowel movement was yesterday. He reports it is painful to take a deep breath in. Telemetry with sinus tachycardia in the 120s to 130s Physical Exam Constitutional: WD/WN, vitals as above + obese Respiratory: normal respiratory effort, lungs clear to auscultation Cardiovascular: RRR, no murmur, no edema Gastrointestinal (Abdomen): Inspection/Auscultation: abdomen normal to inspection and normal bowel sounds; abdomen not distended Percussion/Palpation: + abdomen tender (Epigastric and periumbilical region) and abdomen soft; no guarding, abdomen not rigid and no pulsatile mass Psychiatric: A+Ox3, euthymic affect Results & Data Results & Data Vital Signs (Past 12 Hours) Vital Signs Temp Pulse Pulse Resp BP BP Pulse Ox 09/20/24 10:56 36.7 C 131 H 22 133/97 91 09/20/24 09:00 09/20/24 08:00 115 H 09/20/24 07:23 37.3 C 127 H 17 155/96 H 94 09/20/24 03:03 36.8 C 90 16 148/91 H 98 09/19/24 23:47 O2 Del Method O2 Flow Rate 09/20/24 10:56 Nasal Cannula 1 09/20/24 09:00 Nasal Cannula 2 09/20/24 08:00 09/20/24 07:23 Nasal Cannula 4 09/20/24 03:03 Room Air 09/19/24 23:47 Nasal Cannula 2 Laboratory Results CBC, BMP, triglycerides, hemoglobin A1c reviewed Diagnostic Findings CT abdomen/pelvis on 09/20 reviewed PG Care Time/CCT Total # of Minutes Spent Total Time Spent with Patient: Total time spent is greater than 50% in coordination of care (as documented) at patient's floor/unit and/or counseling patient: Coding Level of Care Code 20957 SUB INP/OBS CARE 3/50MIN Diagnoses Pancreatitis K85.90 Hypertriglyceridemia E78.1 Diabetes mellitus, type 2 E11.9 Sleep apnea G47.30 HTN (hypertension) I10 COPD (chronic obstructive pulmonary disease) J44.9 Hx of hepatitis C Z86.19
[2024-09-20] MEDS: INSULIN ASPART PER UNIT CHARGE SC SCH (11:39)
--- NOTE | 2024-09-20 16:42 | Ultrasound Report ---
EXAM: US Abdomen Limited Right Upper Quadrant INDICATION: Pancreatitis. TECHNIQUE: Real-time ultrasound of the right upper quadrant with image documentation. COMPARISON: CT abdomen 09/19/2024 FINDINGS: Liver: Heterogeneous hyperechoic liver is enlarged to 24 cm. Gallbladder: No gallstones, wall thickening or surrounding fluid. Common bile duct: No significant abnormality noted. No stones. No dilation. Pancreas: Distal pancreas obscured by gas. Proximal portion grossly unremarkable. Right kidney: 12.2 cm long. Normal cortical thickness and echotexture. No mass, stone or hydronephrosis. IMPRESSION: 1. No gallstones identified. 2. Large fatty liver. ACT 112: Negative or not required by law. Electronically signed by Cynthia Shelley 09-20-2024 4:42 PM
[2024-09-20] MEDS: PANTOprazole 40 MG TAB PO SCH (21:21)
[2024-09-21 06:36] LABS: Basophils # (auto) 0.03 K/uL (0.00-0.20); Basophils % (auto) 0.2 %; Eosinophils # (auto) 0.02 K/uL (0.00-0.50); Eosinophils % (auto) 0.2 %; Hematocrit (blood only) 42.9 % (42.0-52.0); Hemoglobin 13.6 g/dl (14.0-18.0); Immature Granulocytes # (auto) 0.12 K/uL (0.01-0.20); Lymphocytes # (auto) 1.19 K/uL (1.20-3.40); Lymphocytes % (auto) 9.8 %; Mean Corpuscular Hemoglobin 27.2 pg (25.0-34.0); Mean Corpuscular Hgb Conc 31.7 g/dL (32.0-36.0); Mean Corpuscular Volume 85.8 fL (80.0-100.0); Mean Platelet Volume 11.5 fL (9.4-12.4); Monocytes # (auto) 0.99 K/uL (0.11-0.59); Monocytes % (auto) 8.1 %; Neutrophils # (auto) 9.85 K/uL (1.40-6.50); Neutrophils % (auto) 80.7 %; Platelet Count 144 K/uL (130-400); RDW Standard Deviation 47.2 fL (36.4-46.3)
[2024-09-21 07:01] LABS: Albumin Globulin Ratio 1.1 (0.9-2); Albumin Level 3.7 gm/dl (3.4-5.0); BUN Creatinine Ratio 13.8 (10-20); Bilirubin,Total 0.9 mg/dl (0.2-1.0); Creatinine Clr Calc Pharmacy 58.5 ml/min; Globulin 3.5 gm/dl (2.5-4.0); Magnesium 1.4 mg/dl (1.7-2.4); Potassium 5.9 mmol/L (3.5-5.1); Total Protein 7.2 gm/dl (6.0-8.3)
[2024-09-21] MEDS: amLODIPine BESYLATE 5 MG TAB PO SCH (08:42)
[2024-09-21] MEDS: gemfibroziL 600 MG TAB PO SCH (08:44)
[2024-09-21] MEDS: ROSUVASTATIN CALCIUM 10 MG TAB PO SCH (08:45)
--- NOTE | 2024-09-21 09:35 | Gastroenterology Progress Note ---
Date of Service September 21, 2024 Assessment & Plan (1) Acute pancreatitis: Plan 44 year old male w/ history of asthma, HTN, dyslipidemia, COPD, ADHD, anxiety, depression, PTSD, fatty liver, DM and others below admitted w/ abd pain, imaging concerning for pancreatitis. He had an episode of pancreatitis in 2022 thought related to hypertriglyceridemia with triglycerides of 511. He underwent EUS evaluation without any abnormal pancreatic anatomy. He reports on going abd pain, Tbili 0.2 AST 24 ALT 41 ALKP 74 Lipase 192 Triglycerides 718 ETOH level negative this admission but dose Uses ETOH periodically, Daily tobacco use, CTAP 2023 w/ interval worsening of pancreatitis with hypoenhancing regions concerning for an element of necrotizing pancreatitis at the tail. This AM 09/21/24 he repots some improvement of his abd pain but still requiring IV analgesia. He has had a bump in his creatinine to 1.95 this AM. Supportive cares Ok for trial clear liquids Trend STONE SPREADER OPERATOR Recommend LR 200 mL/hr, assess for adequate hydration w/ 2 pt drop in HGB Antiemetics PRN Analgesia PRN Recommend ETOH cessation moving forward Smoking cessation encouraged OOB to chair and ambulation encouraged As he is afebrile no current indication for ABX therapy, will continue to assess his clinical status. He should follow up with his care team regarding elevated triglycerides. OP follow up with Puja MENJIVAR I spent a total of 40 minutes on the date of service in review of patient's record, and previously obtained information in person and appropriate medical visit, discussion and education of plan, with patient and/or caregiver, placing orders for tests/referral/procedures as medically necessary and documentation of pertinent clinical information in patient's medical records for their visit today.Thank you for allowing us to participate in the care of this patient. Please call with any acute changes, questions or concerns. Please see addendum below with additional recommendation from my supervising physician. Admission and Anticipated Discharge Date Admission Date: September 19, 2024 Supervising Physician Co-Signing Physician Notes I examined the patient and reviewed the medical record, laboratory data and imaging studies. I agree with the assessment and plan of care as suggested by the advanced practice provider. Patient states that his abdominal pain is better today but he still having some mild degree of pain his ultrasound did not show any gallstones at the current time I would 1. Keep on clear liquid diet only if he still having pain 2. IV fluids 3. Elevated creatinine would excessively hydrate and get renal input 4. Hold simvastatin and lisinopril can cause pancreatitis and would consider finding alternatives for them 5. Cardiac or endocrine evaluation for management of triglycerides Thank you for allowing us to take part in the care of your patient we will continue to follow with you Subjective Pt was seen and evaluated, chart reviewed. Notes the abd pain is somewhat improved but still requiring IV analgesia. He has began liquid diet. There is a bump in STONE SPREADER OPERATOR this AM. He is afebrile w/ WBC 12.20. full CMP pending Review of Systems Review of Systems: All other findings negative except as noted in HPI. Physical Exam Constitutional: WD/WN, vitals as above Respiratory: normal respiratory effort, lungs clear to auscultation wearing O2 Cardiovascular: Rate/Rhythm: + tachycardic Gastrointestinal (Abdomen): Inspection/Auscultation: normal bowel sounds Percussion/Palpation: + abdomen tender and abdomen soft; no guarding and abdomen not rigid Skin: no rashes, warm and dry Results & Data Results & Data Vital Signs (Past 12 Hours) Vital Signs Temp Pulse Pulse Resp BP Pulse Ox O2 Del Method 09/21/24 07:30 117 H 09/21/24 07:20 37.0 C 122 H 22 106/69 92 Nasal Cannula 09/21/24 04:00 36.8 C 118 H 22 125/79 92 BiPAP 09/20/24 22:57 36.8 C 122 H 20 124/78 91 CPAP 09/20/24 22:00 105 H O2 Flow Rate 09/21/24 07:30 09/21/24 07:20 3 09/21/24 04:00 09/20/24 22:57 09/20/24 22:00 Laboratory Results 09/21/24 09/21/24 09/21/24 Range/Units 07:27 05:47 04:17 WBC 12.20 H (4.8-10.8) K/ul RBC 5.00 (4.70-6.10) M/uL Hgb 13.6 L (14.0-18.0) g/dl Hct 42.9 (42.0-52.0) % MCV 85.8 (80.0-100.0) fL MCH 27.2 (25.0-34.0) pg MCHC 31.7 L (32.0-36.0) g/dL RDW Std Deviation 47.2 H (36.4-46.3) fL RDW Coeff of Ryan 15.0 H (11.5-14.5) % Plt Count 144 (130-400) K/uL MPV 11.5 (9.4-12.4) fL Immature Gran % (Auto) 1.0 % Neut % (Auto) 80.7 % Lymph % (Auto) 9.8 % [place] % (Auto) 8.1 % Eos % (Auto) 0.2 % Baso % (Auto) 0.2 % Neut # (Auto) 9.85 H (1.40-6.50) K/uL Lymph # (Auto) 1.19 L (1.20-3.40) K/uL [place] # (Auto) 0.99 H (0.11-0.59) K/uL Eos # (Auto) 0.02 (0.00-0.50) K/uL Baso # (Auto) 0.03 (0.00-0.20) K/uL Immature Gran # (Auto) 0.12 (0.01-0.20) K/uL Sodium 132 L (136-145) mmol/L Potassium 5.9 H D (3.5-5.1) mmol/L Chloride 101 (98-107) mmol/L Carbon Dioxide 26 (21-32) mmol/L Anion Gap 5 (3-11) BUN 27 H (6-23) mg/dl Creatinine 1.95 H D (0.6-1.4) mg/dl Est Cr Clr Drug Dosing 58.5 ml/min eGFR 42.44 BUN/Creatinine Ratio 13.8 (10-20) Glucose 162 H (70-99(Fasting)) mg/dl POC Glucose 148 H 177 H (70-99) mg/dl Calcium 9.0 (8.6-10.3) mg/dl Magnesium 1.4 L (1.7-2.4) mg/dl Total Bilirubin 0.9 D (0.2-1.0) mg/dl AST 24 (13-39) U/L ALT 23 (7-52) U/L Alkaline Phosphatase 55 (34-104) U/L Total Protein 7.2 (6.0-8.3) gm/dl Albumin 3.7 (3.4-5.0) gm/dl Globulin 3.5 (2.5-4.0) gm/dl Albumin/Globulin Ratio 1.1 (0.9-2) Triglycerides 176 H (0-150) mg/dl Lipase 552 H (11-82) U/L 09/20/24 09/20/24 09/20/24 Range/Units 23:16 20:15 16:14 WBC (4.8-10.8) K/ul RBC (4.70-6.10) M/uL Hgb (14.0-18.0) g/dl Hct (42.0-52.0) % MCV (80.0-100.0) fL MCH (25.0-34.0) pg MCHC (32.0-36.0) g/dL RDW Std Deviation (36.4-46.3) fL RDW Coeff of Ryan (11.5-14.5) % Plt Count (130-400) K/uL MPV (9.4-12.4) fL Immature Gran % (Auto) % Neut % (Auto) % Lymph % (Auto) % [place] % (Auto) % Eos % (Auto) % Baso % (Auto) % Neut # (Auto) (1.40-6.50) K/uL Lymph # (Auto) (1.20-3.40) K/uL [place] # (Auto) (0.11-0.59) K/uL Eos # (Auto) (0.00-0.50) K/uL Baso # (Auto) (0.00-0.20) K/uL Immature Gran # (Auto) (0.01-0.20) K/uL Sodium (136-145) mmol/L Potassium (3.5-5.1) mmol/L Chloride (98-107) mmol/L Carbon Dioxide (21-32) mmol/L Anion Gap (3-11) BUN (6-23) mg/dl Creatinine (0.6-1.4) mg/dl Est Cr Clr Drug Dosing ml/min eGFR BUN/Creatinine Ratio (10-20) Glucose (70-99(Fasting)) mg/dl POC Glucose 177 H 190 H 165 H (70-99) mg/dl Calcium (8.6-10.3) mg/dl Magnesium (1.7-2.4) mg/dl Total Bilirubin (0.2-1.0) mg/dl AST (13-39) U/L ALT (7-52) U/L Alkaline Phosphatase (34-104) U/L Total Protein (6.0-8.3) gm/dl Albumin (3.4-5.0) gm/dl Globulin (2.5-4.0) gm/dl Albumin/Globulin Ratio (0.9-2) Triglycerides (0-150) mg/dl Lipase (11-82) U/L 09/20/24 Range/Units 11:34 WBC (4.8-10.8) K/ul RBC (4.70-6.10) M/uL Hgb (14.0-18.0) g/dl Hct (42.0-52.0) % MCV (80.0-100.0) fL MCH (25.0-34.0) pg MCHC (32.0-36.0) g/dL RDW Std Deviation (36.4-46.3) fL RDW Coeff of Ryan (11.5-14.5) % Plt Count (130-400) K/uL MPV (9.4-12.4) fL Immature Gran % (Auto) % Neut % (Auto) % Lymph % (Auto) % [place] % (Auto) % Eos % (Auto) % Baso % (Auto) % Neut # (Auto) (1.40-6.50) K/uL Lymph # (Auto) (1.20-3.40) K/uL [place] # (Auto) (0.11-0.59) K/uL Eos # (Auto) (0.00-0.50) K/uL Baso # (Auto) (0.00-0.20) K/uL Immature Gran # (Auto) (0.01-0.20) K/uL Sodium (136-145) mmol/L Potassium (3.5-5.1) mmol/L Chloride (98-107) mmol/L Carbon Dioxide (21-32) mmol/L Anion Gap (3-11) BUN (6-23) mg/dl Creatinine (0.6-1.4) mg/dl Est Cr Clr Drug Dosing ml/min eGFR BUN/Creatinine Ratio (10-20) Glucose (70-99(Fasting)) mg/dl POC Glucose 234 H (70-99) mg/dl Calcium (8.6-10.3) mg/dl Magnesium (1.7-2.4) mg/dl Total Bilirubin (0.2-1.0) mg/dl AST (13-39) U/L ALT (7-52) U/L Alkaline Phosphatase (34-104) U/L Total Protein (6.0-8.3) gm/dl Albumin (3.4-5.0) gm/dl Globulin (2.5-4.0) gm/dl Albumin/Globulin Ratio (0.9-2) Triglycerides (0-150) mg/dl Lipase (11-82) U/L PG Care Time/CCT Total # of Minutes Spent Total Time Spent with Patient: Total time spent is greater than 50% in coordination of care (as documented) at patient's floor/unit and/or counseling patient: Coding Level of Care Code 99280 SUB INP/OBS CARE 2/35MIN Diagnoses Acute pancreatitis K85.90
[2024-09-21] MEDS: SODIUM CHLORIDE 0.9% 1,000 ML IV SCH (09:58)
[2024-09-21 14:49] LABS: BUN Creatinine Ratio 17.5 (10-20); Creatinine Clr Calc Pharmacy 62.4 ml/min; Potassium 5.2 mmol/L (3.5-5.1)
[2024-09-22] MEDS: ACETAMINOPHEN 325 MG TAB PO PRN (01:05)
--- NOTE | 2024-09-22 06:26 | Hospitalist Progress Note ---
Date of Service September 21, 2024 Assessment & Plan (1) Pancreatitis: (2) Hypertriglyceridemia: (3) Diabetes mellitus, type 2: (4) Sleep apnea: (5) HTN (hypertension): (6) COPD (chronic obstructive pulmonary disease): (7) Hx of hepatitis C: Plan This patient is a 44-year-old male with a H/O fatty liver disease, recurrent pancreatitis without alcohol use in the last 10 years, DM 2, RADHA not on CPAP, HTN, morbid obesity, previous ATA, anxiety/depression, ADHD, current smoker, G ERD, chronic hepatitis C, and hyperlipidemia who presents with recurrent acute pancreatitis. #Acute pancreatitis-with a history of such. No gallbladder disease or gallstones noted on CT. CT shows mild acute distal pancreatitis, massive hepatomegaly and moderate splenomegaly. Lipase mildly elevated and LFTs are normal. He does not drink alcohol, calcium levels are normal. Triglycerides are elevated in the 700s but typically are in the 200-300 range and therefore his hypertriglyceridemia may be more as a result of acute pancreatitis. He is on several medications that could precipitate pancreatitis-lisinopril, omeprazole, Jardiance, and simvastatin. He had an EUS which did not show any abnormalities in 2022 Started on insulin drip for hypertriglyceridemia which is now weaned off-change to Accu-Cheks every 4 hours with supplemental NovoLog as needed for hyperglycemia.TG now down to the 300s With worsening pain, repeat CT abdomen/pelvis performed on the morning of 09/20- shows possible development of necrotizing pancreatitis of the tail. Remains afebrile, no leukocytosis Continue pain control to increase frequency of IV Dilaudid to every 2 hours Resume IV fluids given sinus tachycardia and inability to tolerate p.o. Make n.p.o. except ice chips and sips Hold off on IV antibiotics at this time unless develops fever or worsening leukocytosis Discontinue lisinopril, simvastatin, home omeprazole, and Jardiance GI recommends checking abdominal ultrasound to rule out biliary disease more explicitly Follow CBC, CMP, lipase, triglycerides in the morning Increased IVF: NSS to 200 ml/hr, stopped potassium infusion as patient was having hyperkalemia. #Hyperlipidemia-on simvastatin and fenofibrate as an outpatient but simvastatin can contribute to pancreatitis. Triglycerides here in the 700s likely secondary to acute pancreatitis and baseline triglycerides in the 200s-300s. Discontinue fenofibrate and start gemfibrozil 600 Mg p.o. twice daily for improved control of hypertriglyceridemia Discontinue simvastatin and trial rosuvastatin 10 mg daily-this drug is less likely to cause pancreatitis Follow lipid panel as an outpatient Follow-up with endocrinology #Type II DM-previously thought to have prediabetes but hemoglobin A1c now in the diabetic range at 7.0% Jardiance discontinued as can cause pancreatitis. He previously had a lot of nausea with metformin. He also should avoid GLP 1 agonist due to recurrent pancreatitis issues Here, check glucose every 4 hours and give supplemental NovoLog, add Lantus if needed May need Lantus as an outpatient Follow-up with endocrinology as an outpatient-asked nurse navigator to make sooner appointment #Anxiety/depression/PTSD-no acute issues Continue Abilify, trazodone, fluoxetine #RADHA/hypoxemia requiring 4L NC while sleeping-was previously on CPAP but claims he misplaced his ST card in the company removed the machine from his home He is snoring here and hypoxemic while sleeping after given opioids Order CPAP 10 cm H2O at bedtime and as needed naps while here Add incentive spirometry to encourage deep breathing to avoid further/worsening hypoxemia due to splinting/pain #Hypertension-BPs are controlled Discontinue lisinopril as can contribute to pancreatitis Increase home amlodipine to 10 mg daily and monitor BPs for worsening If have to add another agent, avoid diuretics or other antihypertensives that can cause pancreatitis #GERD Discontinue home omeprazole as this can contribute to pancreatitis-replaced with Protonix on discharge and continue Protonix while here #Hypogonadotrophic hypogonadism Holding home topical testosterone gel Follows with endocrinology DVT prophylaxis: Lovenox Disposition: Continued stay on telemetry unit while tachycardic and hypoxemic CODE STATUS: Full code Discussed all care with girlfriend at the bedside on 09/20 Admission and Anticipated Discharge Date Admission Date: September 19, 2024 Subjective Patient reports he continues to have abdominal pain, however it is improved. Nurse reports the pain medicine is making him drowsy. Physical Exam Constitutional: WD/WN, vitals as above + obese Respiratory: normal respiratory effort, lungs clear to auscultation Cardiovascular: RRR, no murmur, no edema Gastrointestinal (Abdomen): Inspection/Auscultation: abdomen normal to inspection and normal bowel sounds; abdomen not distended Percussion/Palpation: + abdomen tender (Epigastric and periumbilical region) and abdomen soft; no guarding, abdomen not rigid and no pulsatile mass Psychiatric: A+Ox3, euthymic affect Results & Data Results & Data Vital Signs (Past 12 Hours) Vital Signs Temp Pulse Pulse Resp BP Pulse Ox O2 Del Method 09/22/24 03:41 36.5 C 116 H 20 162/88 H 94 CPAP 09/22/24 03:14 119 H 22 92 09/22/24 00:56 38.2 C H 84 20 135/64 93 CPAP 09/21/24 22:56 20 94 09/21/24 22:00 126 H 09/21/24 21:10 Nasal Cannula, CPAP 09/21/24 20:24 37.2 C 123 H 21 105/72 93 CPAP O2 Flow Rate 09/22/24 03:41 09/22/24 03:14 2 09/22/24 00:56 09/21/24 22:56 2 09/21/24 22:00 09/21/24 21:10 3 09/21/24 20:24 PG Care Time/CCT Total # of Minutes Spent Total Time Spent with Patient: Total time spent is greater than 50% in coordination of care (as documented) at patient's floor/unit and/or counseling patient: Coding Level of Care Code 49759 SUB INP/OBS CARE 2/35MIN Diagnoses Pancreatitis K85.90 Hypertriglyceridemia E78.1 Diabetes mellitus, type 2 E11.9 Sleep apnea G47.30 HTN (hypertension) I10 COPD (chronic obstructive pulmonary disease) J44.9 Hx of hepatitis C Z86.19
[2024-09-22 07:07] LABS: Basophils # (auto) 0.01 K/uL (0.00-0.20); Basophils % (auto) 0.1 %; Eosinophils # (auto) 0.07 K/uL (0.00-0.50); Eosinophils % (auto) 0.8 %; Hematocrit (blood only) 35.3 % (42.0-52.0); Hemoglobin 10.9 g/dl (14.0-18.0); Immature Granulocytes # (auto) 0.14 K/uL (0.01-0.20); Immature Granulocytes % (auto) 1.6 %; Lymphocytes # (auto) 0.97 K/uL (1.20-3.40); Lymphocytes % (auto) 11.3 %; Mean Corpuscular Hemoglobin 26.9 pg (25.0-34.0); Mean Corpuscular Hgb Conc 30.9 g/dL (32.0-36.0); Mean Corpuscular Volume 87.2 fL (80.0-100.0); Mean Platelet Volume 11.2 fL (9.4-12.4); Monocytes # (auto) 0.77 K/uL (0.11-0.59); Neutrophils % (auto) 77.2 %; Platelet Count 120 K/uL (130-400); RDW Standard Deviation 48.4 fL (36.4-46.3); Red Blood Count 4.05 M/uL (4.70-6.10); White Blood Count 8.56 K/ul (4.8-10.8)
[2024-09-22 07:29] LABS: Albumin Globulin Ratio 0.9 (0.9-2); Albumin Level 3.2 gm/dl (3.4-5.0); BUN Creatinine Ratio 20.2 (10-20); Bilirubin,Total 0.6 mg/dl (0.2-1.0); Calcium 8.8 mg/dl (8.6-10.3); Creatinine Clr Calc Pharmacy 129.5 ml/min; Globulin 3.5 gm/dl (2.5-4.0); Potassium 4.4 mmol/L (3.5-5.1); Total Protein 6.7 gm/dl (6.0-8.3)
[2024-09-22 07:40] LABS: C Reactive Protein 46.63 mg/dl (0-0.5)
--- NOTE | 2024-09-22 10:27 | Gastroenterology Progress Note ---
Date of Service September 22, 2024 Assessment & Plan (1) Acute pancreatitis: Plan: As he is pain free would advance diet. Will let hospitalist choose diet as triglycerides are a big issue. Admission and Anticipated Discharge Date Admission Date: September 19, 2024 Subjective Says he is basically pain free. Would like to eat Physical Exam Physical Exam: He looks well Gastrointestinal (Abdomen): Inspection/Auscultation: + abdomen distended Percussion/Palpation: abdomen soft; abdomen nontender Results & Data Vital Signs (Past 12 Hours) Vital Signs Temp Pulse Pulse Resp BP Pulse Ox O2 Del Method 09/22/24 08:10 36.7 C 115 H 17 156/95 H 94 Nasal Cannula 09/22/24 03:41 36.5 C 116 H 20 162/88 H 94 CPAP 09/22/24 03:14 119 H 22 92 09/22/24 00:56 38.2 C H 84 20 135/64 93 CPAP 09/21/24 22:56 20 94 O2 Flow Rate 09/22/24 08:10 3 09/22/24 03:41 09/22/24 03:14 2 09/22/24 00:56 09/21/24 22:56 2
[2024-09-22] MEDS: HYDROmorphone INJ 0.5 MG/0.5 ML SYR IV PRN (12:32)
--- NOTE | 2024-09-22 17:06 | XRay Report ---
INDICATION: Evaluate for metallic foreign body. TECHNIQUE: 3 views of the orbits. COMPARISON: No relevant priors. FINDINGS/IMPRESSION: Negative for metallic foreign body in the orbits. No acute fracture. No acute soft tissue abnormality. Electronically signed by Vijay Wheatley 09-22-2024 5:05 PM
[2024-09-22] MEDS: GADOBUTROL 65ML VIAL IV ONE (18:02)
[2024-09-22] MEDS: DOCUSATE SODIUM/SENNA 50/8.6MG TAB PO SCH (18:21)
[2024-09-22] MEDS: POLYETHYLENE (MIRALAX) 17 GM PACK PO SCH (18:21)
--- NOTE | 2024-09-22 18:47 | Magnetic Resonance Report ---
EXAMINATION: MRI abdomen without and with intravenous contrast. CLINICAL HISTORY: History hepatitis C, completed antivirals, history of pancreatitis, abdominal pain. PRIORS: CT abdomen 09/19/2024, 08/2624. TECHNIQUE: Multiplanar multisequence imaging was obtained through the abdomen without and with the use of intravenous contrast, according to the pancreas protocol. FINDINGS: Motion artifact significantly degrades image quality. Large body habitus also diminishes image quality. Image quality is extremely limited. The liver is enlarged measuring 23.6 cm with fatty infiltration. The spleen is enlarged measuring 15 cm. Moderate peripancreatic inflammatory change and fluid is present at the level of the distal pancreas with mild perisplenic fluid noted, tracking in the left side of the abdomen. On T1-weighted imaging, a portion of the fluid demonstrates increased signal possibly representing blood products. No pancreatic ductal dilatation. No pancreatic divisum, allowing for significant motion artifact. Contrast-enhanced images show the pancreatic head and body enhancing normally. Contrast enhancement demonstrated adjacent to the distal pancreas. No drainable fluid collection or pseudocyst identified at this time. Allowing for motion the splenic vein enhances normally with no thrombus identified. The distal pancreas overall is not well visualized due to motion. The gallbladder, portal vein, aorta, kidneys, adrenals and IVC enhance normally. Prominent lymph nodes present adjacent to the pancreatic tail. Stomach partly distended and morphologically unremarkable. IMPRESSION: 1. Advanced peripancreatic inflammatory change involving the distal pancreatic tail representing acute pancreatitis with possible necrosis and mild hemorrhage, allowing for significant motion artifact and diminished image quality. Splenic vein is patent. No pseudocyst. Follow-up CT abdomen is suggested if it would be better tolerated, given the above findings. 2. Hepatosplenomegaly. Electronically signed by Stefany Blum 09-22-2024 6:46 PM
[2024-09-22] MEDS: SODIUM CHLORIDE 0.9% 1,000 ML IV SCH (19:51)
[2024-09-22] MEDS ORDERED: Nursing to Pharmacy Communication SCH (20:30)
--- NOTE | 2024-09-22 22:32 | Hospitalist Progress Note ---
Date of Service September 22, 2024 Assessment & Plan (1) Pancreatitis: (2) Hypertriglyceridemia: (3) Diabetes mellitus, type 2: (4) Sleep apnea: (5) HTN (hypertension): (6) COPD (chronic obstructive pulmonary disease): (7) Hx of hepatitis C: Plan This patient is a 44-year-old male with a H/O fatty liver disease, recurrent pancreatitis without alcohol use in the last 10 years, DM 2, RADHA not on CPAP, HTN, morbid obesity, previous ATA, anxiety/depression, ADHD, current smoker, G ERD, chronic hepatitis C, and hyperlipidemia who presents with recurrent acute pancreatitis. #Acute severe pancreatitis-with a history of such. No gallbladder disease or gallstones noted on CT. CT shows mild acute distal pancreatitis, massive hepatomegaly and moderate splenomegaly. Lipase mildly elevated and LFTs are normal. He does not drink alcohol, calcium levels are normal. Triglycerides are elevated in the 700s but typically are in the 200-300 range and therefore his hypertriglyceridemia may be more as a result of acute pancreatitis. He is on several medications that could precipitate pancreatitis-lisinopril, omeprazole, Jardiance, and simvastatin. He had an EUS which did not show any abnormalities in 2022 Started on insulin drip for hypertriglyceridemia which is now weaned off-change to Accu-Cheks every 4 hours with supplemental NovoLog as needed for hyperglycemia.TG now down to the 300s With worsening pain, repeat CT abdomen/pelvis performed on the morning of 09/20- shows possible development of necrotizing pancreatitis of the tail. Remains afebrile, no leukocytosis Continue pain control to increase frequency of IV Dilaudid to every 2 hours Resume IV fluids given sinus tachycardia and inability to tolerate p.o. Make n.p.o. except ice chips and sips Hold off on IV antibiotics at this time unless develops fever or worsening leukocytosis Discontinue lisinopril, simvastatin, home omeprazole, and Jardiance GI recommends checking abdominal ultrasound to rule out biliary disease more explicitly Follow CBC, CMP, lipase, triglycerides in the morning Cutting back on IVF as inflammatory markers have improved. Will order repeat imaging MRI of abdomen to assess the pancreas as patient remains tachycardic with elevated procal and crp. will keep NPO for now. Increased IVF: NSS to 200 ml/hr, stopped potassium infusion as patient was having hyperkalemia. #Hyperlipidemia-on simvastatin and fenofibrate as an outpatient but simvastatin can contribute to pancreatitis. Triglycerides here in the 700s likely secondary to acute pancreatitis and baseline triglycerides in the 200s-300s. Discontinue fenofibrate and start gemfibrozil 600 Mg p.o. twice daily for improved control of hypertriglyceridemia Discontinue simvastatin and trial rosuvastatin 10 mg daily-this drug is less likely to cause pancreatitis Follow lipid panel as an outpatient Follow-up with endocrinology #Type II DM-previously thought to have prediabetes but hemoglobin A1c now in the diabetic range at 7.0% Jardiance discontinued as can cause pancreatitis. He previously had a lot of nausea with metformin. He also should avoid GLP 1 agonist due to recurrent pancreatitis issues Here, check glucose every 4 hours and give supplemental NovoLog, add Lantus if needed May need Lantus as an outpatient Follow-up with endocrinology as an outpatient-asked nurse navigator to make sooner appointment #Anxiety/depression/PTSD-no acute issues Continue Abilify, trazodone, fluoxetine #RADHA/hypoxemia requiring 4L NC while sleeping-was previously on CPAP but claims he misplaced his ST card in the company removed the machine from his home He is snoring here and hypoxemic while sleeping after given opioids Order CPAP 10 cm H2O at bedtime and as needed naps while here Add incentive spirometry to encourage deep breathing to avoid further/worsening hypoxemia due to splinting/pain #Hypertension-BPs are controlled Discontinue lisinopril as can contribute to pancreatitis Increase home amlodipine to 10 mg daily and monitor BPs for worsening If have to add another agent, avoid diuretics or other antihypertensives that can cause pancreatitis #GERD Discontinue home omeprazole as this can contribute to pancreatitis-replaced with Protonix on discharge and continue Protonix while here #Hypogonadotrophic hypogonadism Holding home topical testosterone gel Follows with endocrinology DVT prophylaxis: Lovenox Disposition: Continued stay on telemetry unit while tachycardic and hypoxemic CODE STATUS: Full code Discussed all care with girlfriend at the bedside on 09/20 Admission and Anticipated Discharge Date Admission Date: September 19, 2024 Subjective Patient reports his pain is controled with pain medicine. However, it is 07/05 when the pain wears off. Review of Systems Review of Systems: All systems reviewed & are unremarkable except as noted in HPI & below Physical Exam Constitutional: WD/WN, vitals as above + obese Respiratory: normal respiratory effort, lungs clear to auscultation Cardiovascular: RRR, no murmur, no edema Gastrointestinal (Abdomen): Inspection/Auscultation: abdomen normal to inspection and normal bowel sounds; abdomen not distended Percussion/Palpation: abdomen soft (but firmer); abdomen nontender, no guarding, abdomen not rigid and no pulsatile mass Psychiatric: A+Ox3, euthymic affect Results & Data Results & Data Vital Signs (Past 12 Hours) Vital Signs Temp Pulse Pulse Resp BP BP Pulse Ox 09/22/24 18:54 36.9 C 109 H 22 144/75 H 91 09/22/24 17:41 110 H 09/22/24 16:00 09/22/24 15:45 37.1 C 112 H 19 156/83 H 91 09/22/24 13:22 117 H 09/22/24 11:42 36.6 C 113 H 19 146/91 H 95 Pulse Ox O2 Del Method O2 Del Method O2 Flow Rate O2 Flow Rate 09/22/24 18:54 Nasal Cannula 3 09/22/24 17:41 09/22/24 16:00 96 Nasal Cannula 3 09/22/24 15:45 Nasal Cannula 3 09/22/24 13:22 09/22/24 11:42 BiPAP PG Care Time/CCT Total # of Minutes Spent Total Time Spent with Patient: Total time spent is greater than 50% in coordination of care (as documented) at patient's floor/unit and/or counseling patient: Coding Level of Care Code 53827 SUB INP/OBS CARE 3/50MIN Diagnoses Pancreatitis K85.90 Hypertriglyceridemia E78.1 Diabetes mellitus, type 2 E11.9 Sleep apnea G47.30 HTN (hypertension) I10 COPD (chronic obstructive pulmonary disease) J44.9 Hx of hepatitis C Z86.19 Time Spent (min) 50
[2024-09-23] MEDS: INSULIN ASPART PER UNIT CHARGE SC SCH ×2 (00:53→16:22)
[2024-09-23 06:32] LABS: Hematocrit (blood only) 32.1 % (42.0-52.0); Mean Corpuscular Hemoglobin 26.7 pg (25.0-34.0); Mean Corpuscular Hgb Conc 31.2 g/dL (32.0-36.0); Mean Corpuscular Volume 85.6 fL (80.0-100.0); Mean Platelet Volume 10.7 fL (9.4-12.4); Platelet Count 146 K/uL (130-400); RDW Coefficient of Variation 14.9 % (11.5-14.5); RDW Standard Deviation 47.2 fL (36.4-46.3); Red Blood Count 3.75 M/uL (4.70-6.10)
[2024-09-23 06:43] LABS: Albumin Globulin Ratio 0.9 (0.9-2); Albumin Level 3.1 gm/dl (3.4-5.0); BUN Creatinine Ratio 20.6 (10-20); Bilirubin,Total 0.4 mg/dl (0.2-1.0); Calcium 8.8 mg/dl (8.6-10.3); Creatinine Clr Calc Pharmacy 183.2 ml/min; Globulin 3.6 gm/dl (2.5-4.0); Potassium 3.9 mmol/L (3.5-5.1); Total Protein 6.7 gm/dl (6.0-8.3)
[2024-09-23 07:12] LABS: C Reactive Protein 41.46 mg/dl (0-0.5)
[2024-09-23] MEDS ORDERED: oxyCODONE HCL IR 5 MG TAB (IMMEDIATE RELEASE) PO PRN (07:36)
[2024-09-23] MEDS: oxyCODONE HCL IR 5 MG TAB (IMMEDIATE RELEASE) PO PRN (10:34)
--- NOTE | 2024-09-23 10:47 | Gastroenterology Progress Note ---
Date of Service September 23, 2024 Assessment & Plan (1) Acute pancreatitis: Plan: Apparently confusion about his clinical state yesterday and when he told me he was feeling better it was shortly after getting a pain shot. I told him we need to see how he is doing without pain meds. He says he understands now but he does feel better. Can advance diet once his pain med requirements are minimal. Admission and Anticipated Discharge Date Admission Date: September 19, 2024 Subjective Patient tells me he is feeling better today and that it has been hours since his last pain med. MRCP last night does not show anything new to worry about. Physical Exam Physical Exam: He looks comfortable Results & Data Vital Signs (Past 12 Hours) Vital Signs Temp Pulse Pulse Resp BP Pulse Ox O2 Del Method 09/23/24 07:36 Nasal Cannula 09/23/24 07:15 37.0 C 107 H 22 149/93 H 90 CPAP 09/23/24 02:21 36.9 C 103 H 20 120/77 95 CPAP 09/23/24 02:17 62 25 H 93 09/23/24 00:59 110 H 09/22/24 23:16 36.9 C 106 H 20 138/72 94 CPAP 09/22/24 23:05 111 H 18 93 O2 Flow Rate 09/23/24 07:36 3 09/23/24 07:15 09/23/24 02:21 09/23/24 02:17 2 09/23/24 00:59 09/22/24 23:16 09/22/24 23:05 2
--- NOTE | 2024-09-23 21:53 | Hospitalist Progress Note ---
Date of Service September 23, 2024 Assessment & Plan (1) Pancreatitis: (2) Hypertriglyceridemia: (3) Diabetes mellitus, type 2: (4) Sleep apnea: (5) HTN (hypertension): (6) COPD (chronic obstructive pulmonary disease): (7) Hx of hepatitis C: Plan This patient is a 44-year-old male with a H/O fatty liver disease, recurrent pancreatitis without alcohol use in the last 10 years, DM 2, RADHA not on CPAP, HTN, morbid obesity, previous ATA, anxiety/depression, ADHD, current smoker, G ERD, chronic hepatitis C, and hyperlipidemia who presents with recurrent acute pancreatitis. #Acute severe pancreatitis-with a history of such. No gallbladder disease or gallstones noted on CT. CT shows mild acute distal pancreatitis, massive hepatomegaly and moderate splenomegaly. Lipase mildly elevated and LFTs are normal. He does not drink alcohol, calcium levels are normal. Triglycerides are elevated in the 700s but typically are in the 200-300 range and therefore his hypertriglyceridemia may be more as a result of acute pancreatitis. He is on several medications that could precipitate pancreatitis-lisinopril, omeprazole, Jardiance, and simvastatin. He had an EUS which did not show any abnormalities in 2022 Started on insulin drip for hypertriglyceridemia which is now weaned off-change to Accu-Cheks every 4 hours with supplemental NovoLog as needed for hyperglycemia.TG now down to the 300s With worsening pain, repeat CT abdomen/pelvis performed on the morning of 09/20- shows possible development of necrotizing pancreatitis of the tail. Remains afebrile, no leukocytosis Hold off on IV antibiotics at this time as HR, lipase procalcitonin, CRP are improving. Discontinue lisinopril, simvastatin, home omeprazole, and Jardiance GI recommends checking abdominal ultrasound to rule out biliary disease more explicitly Pain regimen cut back, will try low fat diet. Cutting back on IVF MRI of abdomen shows pancreatitis with possible necrosis of tail. switched to oral narcotics, recommend ambulation. #Hyperlipidemia-on simvastatin and fenofibrate as an outpatient but simvastatin can contribute to pancreatitis. Triglycerides here in the 700s likely secondary to acute pancreatitis and baseline triglycerides in the 200s-300s. Discontinue fenofibrate and start gemfibrozil 600 Mg p.o. twice daily for improved control of hypertriglyceridemia Discontinue simvastatin and trial rosuvastatin 10 mg daily-this drug is less likely to cause pancreatitis Follow lipid panel as an outpatient Follow-up with endocrinology #Type II DM-previously thought to have prediabetes but hemoglobin A1c now in the diabetic range at 7.0% Jardiance discontinued as can cause pancreatitis. He previously had a lot of nausea with metformin. He also should avoid GLP 1 agonist due to recurrent pancreatitis issues Here, check glucose every 4 hours and give supplemental NovoLog, add Lantus if needed May need Lantus as an outpatient Follow-up with endocrinology as an outpatient-asked nurse navigator to make sooner appointment #Anxiety/depression/PTSD-no acute issues Continue Abilify, trazodone, fluoxetine #RADHA/hypoxemia requiring 4L NC while sleeping-was previously on CPAP but claims he misplaced his ST card in the company removed the machine from his home He is snoring here and hypoxemic while sleeping after given opioids Order CPAP 10 cm H2O at bedtime and as needed naps while here Add incentive spirometry to encourage deep breathing to avoid further/worsening hypoxemia due to splinting/pain #Hypertension-BPs are controlled Discontinue lisinopril as can contribute to pancreatitis Increase home amlodipine to 10 mg daily and monitor BPs for worsening If have to add another agent, avoid diuretics or other antihypertensives that can cause pancreatitis #GERD Discontinue home omeprazole as this can contribute to pancreatitis-replaced with Protonix on discharge and continue Protonix while here #Hypogonadotrophic hypogonadism Holding home topical testosterone gel Follows with endocrinology DVT prophylaxis: Lovenox Disposition: Continued stay on telemetry unit while tachycardic and hypoxemic CODE STATUS: Full code Discussed all care with girlfriend at the bedside on 09/23 Admission and Anticipated Discharge Date Admission Date: September 19, 2024 Subjective Patient states his pain is improved. Review of Systems Review of Systems: All systems reviewed & are unremarkable except as noted in HPI & below Physical Exam Constitutional: WD/WN, vitals as above (sitting upright and smiling.) + obese Respiratory: normal respiratory effort, lungs clear to auscultation Cardiovascular: RRR, no murmur, no edema Gastrointestinal (Abdomen): Inspection/Auscultation: abdomen normal to inspection and normal bowel sounds; abdomen not distended Percussion/Palpation: abdomen soft; abdomen nontender, no guarding, abdomen not rigid and no pulsatile mass Psychiatric: A+Ox3, euthymic affect Results & Data Results & Data Vital Signs (Past 12 Hours) Vital Signs Temp Pulse Pulse Resp BP Pulse Ox O2 Del Method 09/23/24 20:42 37.8 C H 107 H 20 163/101 H 96 CPAP 09/23/24 20:00 CPAP 09/23/24 15:47 36.5 C 109 H 18 154/99 H 94 Nasal Cannula 09/23/24 13:55 108 H 09/23/24 11:50 36.7 C 106 H 22 153/94 H 94 Nasal Cannula 09/23/24 10:57 105 H O2 Flow Rate 09/23/24 20:42 09/23/24 20:00 3 09/23/24 15:47 3 09/23/24 13:55 09/23/24 11:50 3 09/23/24 10:57 PG Care Time/CCT Total # of Minutes Spent Total Time Spent with Patient: Total time spent is greater than 50% in coordination of care (as documented) at patient's floor/unit and/or counseling patient: Coding Level of Care Code 08345 SUB INP/OBS CARE 3/50MIN Diagnoses Pancreatitis K85.90 Hypertriglyceridemia E78.1 Diabetes mellitus, type 2 E11.9 Sleep apnea G47.30 HTN (hypertension) I10 COPD (chronic obstructive pulmonary disease) J44.9 Hx of hepatitis C Z86.19
[2024-09-24 06:24] LABS: Basophils # (auto) 0.02 K/uL (0.00-0.20); Basophils % (auto) 0.3 %; Eosinophils # (auto) 0.11 K/uL (0.00-0.50); Eosinophils % (auto) 1.7 %; Hematocrit (blood only) 32.5 % (42.0-52.0); Hemoglobin 10.4 g/dl (14.0-18.0); Immature Granulocytes # (auto) 0.06 K/uL (0.01-0.20); Immature Granulocytes % (auto) 0.9 %; Lymphocytes % (auto) 14.1 %; Mean Corpuscular Hemoglobin 26.9 pg (25.0-34.0); Mean Corpuscular Volume 84.2 fL (80.0-100.0); Mean Platelet Volume 10.3 fL (9.4-12.4); Monocytes # (auto) 0.55 K/uL (0.11-0.59); Monocytes % (auto) 8.6 %; Neutrophils # (auto) 4.76 K/uL (1.40-6.50); Neutrophils % (auto) 74.4 %; Platelet Count 174 K/uL (130-400); RDW Coefficient of Variation 14.7 % (11.5-14.5); RDW Standard Deviation 45.1 fL (36.4-46.3); Red Blood Count 3.86 M/uL (4.70-6.10)
[2024-09-24 06:48] LABS: Albumin Globulin Ratio 0.8 (0.9-2); Albumin Level 3.2 gm/dl (3.4-5.0); Bilirubin,Total 0.4 mg/dl (0.2-1.0); Creatinine Clr Calc Pharmacy 186.2 ml/min; Globulin 3.8 gm/dl (2.5-4.0); Magnesium 1.8 mg/dl (1.7-2.4); Phosphorus 3.8 mg/dl (2.5-4.9); Potassium 3.6 mmol/L (3.5-5.1)
[2024-09-24 07:06] LABS: C Reactive Protein 33.46 mg/dl (0-0.5)
--- NOTE | 2024-09-24 07:52 | Hospitalist Progress Note ---
Date of Service September 24, 2024 Assessment & Plan (1) Pancreatitis: (2) Hypertriglyceridemia: (3) Diabetes mellitus, type 2: (4) Sleep apnea: (5) HTN (hypertension): (6) COPD (chronic obstructive pulmonary disease): (7) Hx of hepatitis C: Plan This patient is a 44-year-old male with a H/O fatty liver disease, recurrent pancreatitis without alcohol use in the last 10 years, DM 2, RADHA not on CPAP, HTN, morbid obesity, previous ATA, anxiety/depression, ADHD, current smoker, G ERD, chronic hepatitis C, and hyperlipidemia who presents with recurrent acute pancreatitis. #Acute severe pancreatitis-with a history of such. concern for necrotizine pancreatitis on imaging gallbladder disease/gallstones ruled out by CT. does not drink alcohol, calcium levels are normal. He is on several medications that could precipitate pancreatitis-lisinopril, omeprazole, Jardiance, and simvastatin. Triglycerides are elevated in the 700s treated with insulin-change to Accu- Cheks every 4 hours with supplemental NovoLog as needed for hyperglycemia.TG now down to the 300 Discontinue lisinopril, simvastatin, home omeprazole(change to pantoprozole), and Jardiance MRI of abdomen shows pancreatitis with possible necrosis of tail. switched to oral narcotics, recommend ambulation. #Hyperlipidemia-on simvastatin and fenofibrate as an outpatient but simvastatin can contribute to pancreatitis. Triglycerides here in the 700s likely secondary to acute pancreatitis and baseline triglycerides in the 200s-300s. Discontinue fenofibrate and start gemfibrozil 600 Mg p.o. twice daily for improved control of hypertriglyceridemia Discontinue simvastatin and trial rosuvastatin 10 mg daily-this drug is less likely to cause pancreatitis Follow lipid panel as an outpatient Follow-up with endocrinology #Type II DM-previously thought to have prediabetes but hemoglobin A1c now in the diabetic range at 7.0% Jardiance discontinued as can cause pancreatitis. He previously had a lot of nausea with metformin. He also should avoid GLP 1 agonist due to recurrent pancreatitis issues May need Lantus as an outpatient Follow-up with endocrinology as an outpatient #Anxiety/depression/PTSD-no acute issues Continue Abilify, trazodone, fluoxetine #RADHA/hypoxemia requiring 4L NC while sleeping-was previously on CPAP but claims he misplaced his ST card in the company removed the machine from his home He is snoring here and hypoxemic while sleeping after given opioids Order CPAP 10 cm H2O at bedtime and as needed naps while here Add incentive spirometry to encourage deep breathing to avoid further/worsening hypoxemia due to splinting/pain Walking desaturations will give Lasix to being ahead due to volume resuscitation for pancreatitis and continue to evaluate #Hypertension-BPs are controlled Discontinue lisinopril as can contribute to pancreatitis Increase home amlodipine to 10 mg daily and monitor BPs for worsening If have to add another agent, avoid diuretics or other antihypertensives that can cause pancreatitis #Hypogonadotrophic hypogonadism Holding home topical testosterone gel Follows with endocrinology DVT prophylaxis: Lovenox CODE STATUS: Full code Admission and Anticipated Discharge Date Admission Date: September 19, 2024 Subjective pt seen in room without much distress, was in need of oxygen and confirmed on 2 step, is 13L + this admission, will attempt to diurese and use incentive spirometry pt has improved pain Physical Exam Physical Exam: does not appear dyspneic, is hypoxic on exertion lungs are diminished at the bases abd is soft and non tender Results & Data Results & Data Vital Signs (Past 12 Hours) Vital Signs Temp Pulse Pulse Resp BP Pulse Ox O2 Del Method 09/24/24 07:25 98.6 F 100 H 19 159/80 H 96 Nasal Cannula 09/24/24 03:56 98.4 F 102 H 18 155/100 H 94 CPAP 09/24/24 02:51 105 H 26 H 95 09/23/24 23:56 107 H 09/23/24 23:26 98.4 F 108 H 20 162/98 H 92 CPAP 09/23/24 23:07 107 H 24 95 09/23/24 20:42 100.0 F H 107 H 20 163/101 H 96 CPAP 09/23/24 20:00 CPAP O2 Flow Rate 09/24/24 07:25 3 09/24/24 03:56 09/24/24 02:51 2 09/23/24 23:56 09/23/24 23:26 09/23/24 23:07 2 09/23/24 20:42 09/23/24 20:00 3 Laboratory Results Reviewed CBC Reviewed chemistry, reviewed procalcitonin, reviewed lipase Reviewed 2 step oxygen test PG Care Time/CCT Total # of Minutes Spent Total Time Spent with Patient: Total time spent is greater than 50% in coordination of care (as documented) at patient's floor/unit and/or counseling patient: Coding Level of Care Code 74597 SUB INP/OBS CARE MIN Diagnoses Pancreatitis K85.90 Hypertriglyceridemia E78.1 Diabetes mellitus, type 2 E11.9 Sleep apnea G47.30 HTN (hypertension) I10 COPD (chronic obstructive pulmonary disease) J44.9 Hx of hepatitis C Z86.19
--- NOTE | 2024-09-24 09:40 | Gastroenterology Progress Note ---
Date of Service September 24, 2024 Assessment & Plan (1) Acute pancreatitis: Plan: -Continue with progression to low fat diet as tolerated as he did well with his breakfast today -Pain control & supportive care per primary team -Continue to monitor CBC, CMP/LFTs -Aggressively treat triglycerides and stop smoking -Continue outpatient work-up with [facility] GI when discharged. Should have CT in 6-8 weeks to reassess. Admission and Anticipated Discharge Date Admission Date: September 19, 2024 Supervising Physician Co-Signing Physician Notes Second bout of pancreatitis. Patient had elevated triglycerides both episodes. As long as his pancreatitis occur in the setting of elevated triglycerides I believe this is the most likely cause. Patient will need to work closely with his primary or it generalist for triglyceride control. He also needs to stop smoking which I reviewed with him today. Patient does not drink significant amounts of alcohol by his report. The tail of pancreas shows potential for pancreatic necrosis. It is a little atypical of the tail only is involved. He did have an outpatient EUS without definite pathology. However I would recommend follow-up of this pancreatic necrosis and pancreas of the tail. CT scan in 4 to 6 weeks to evaluate for pancreatic pseudocyst and/or document resolution of the changes in the pancreatic tail are recommended. Patient was advised of this. He can follow-up with his usual [facility] treating physicians. Agree with nurse practitioner assessment Subjective Patient is a 44 yo male with pancreatitis. He notes significant improvement. He notes infrequent abdominal pain. He had eggs & toast for breakfast without exacerbation of his abdominal pain. He notes he has not moved his bowels and is being given Miralax. No new complaints. Lipase 175, CRP 33.46. Recent EUS negative due to previous episode & elevated triglycerides. Triglycerides >700 on admission. Review of Systems Constitutional: no fever and no chills Gastrointestinal: no abdominal pain Psychiatric: no problem reported Physical Exam Constitutional: well developed Respiratory: normal respiratory effort Gastrointestinal (Abdomen): normal bowel sounds, soft, nontender, no hepatosplenomegaly Psychiatric: Orientation: alert and oriented x 3 Results & Data Results & Data Vital Signs (Past 12 Hours) Vital Signs Temp Pulse Pulse Resp BP Pulse Ox O2 Del Method 09/24/24 07:25 37.0 C 100 H 19 159/80 H 96 Nasal Cannula 09/24/24 03:56 36.9 C 102 H 18 155/100 H 94 CPAP 09/24/24 02:51 105 H 26 H 95 09/23/24 23:56 107 H 09/23/24 23:26 36.9 C 108 H 20 162/98 H 92 CPAP 09/23/24 23:07 107 H 24 95 O2 Flow Rate 09/24/24 07:25 3 09/24/24 03:56 09/24/24 02:51 2 09/23/24 23:56 09/23/24 23:26 09/23/24 23:07 2 PG Care Time/CCT Total # of Minutes Spent Total Time Spent with Patient: Total time spent is greater than 50% in coordination of care (as documented) at patient's floor/unit and/or counseling patient: Coding Level of Care Code 62886 SUB INP/OBS CARE 3/50MIN Diagnoses Acute pancreatitis K85.90
[2024-09-24 15:50] VITALS: O2SAT 94
[2024-09-24] MEDS: FUROSEMIDE INJ 20 MG/2 ML VIAL IV ONE (15:58)
[2024-09-25 07:25] VITALS: PULSE 95; RESP 19; TEMP 98.1
[2024-09-25 08:13] LABS: Creatinine Clr Calc Pharmacy 185.5 ml/min
[2024-09-25 13:10] VITALS: BP 156/83
--- NOTE | 2024-09-25 15:58 | Discharge Summary ---
Discharge Summary Date of Service September 25, 2024 Principal Dx & Hospital Course #1 = Principal Diagnosis (1) Pancreatitis: (2) Hypertriglyceridemia: (3) Diabetes mellitus, type 2: (4) Sleep apnea: (5) HTN (hypertension): (6) COPD (chronic obstructive pulmonary disease): (7) Hx of hepatitis C: Plan This patient is a 44-year-old male with a H/O fatty liver disease, recurrent pancreatitis without alcohol use in the last 10 years, DM 2, RADHA not on CPAP, HTN, morbid obesity, previous ATA, anxiety/depression, ADHD, current smoker, GERD, chronic hepatitis C, and hyperlipidemia who presents with recurrent acute pancreatitis. #Acute severe pancreatitis-with a history of such. concern for necrotizine pancreatitis on imaging, much improved gallbladder disease/gallstones ruled out by CT. does not drink alcohol, calcium levels are normal. He is on several medications that could precipitate pancreatitis-lisinopril, omeprazole, Jardiance, and simvastatin. Triglycerides are elevated in the 700s improved with treatment may consider more formal targeted treatment lipids once patient improves. Discontinue lisinopril, simvastatin, home omeprazole(change to pantoprozole), and Jardiance MRI of abdomen shows pancreatitis with possible necrosis of tail. switched to oral narcotics, recommend ambulation. #Hyperlipidemia-on simvastatin and fenofibrate as an outpatient but simvastatin can contribute to pancreatitis. Triglycerides here in the 700s likely secondary to acute pancreatitis and baseline triglycerides in the 200s-300s. Discontinue fenofibrate and start gemfibrozil 600 Mg p.o. twice daily for improved control of hypertriglyceridemia Discontinue simvastatin and trial rosuvastatin 10 mg daily-this drug is less likely to cause pancreatitis Follow lipid panel as an outpatient Follow-up with endocrinology #Type II DM-previously thought to have prediabetes but hemoglobin A1c now in the diabetic range at 7.0% Jardiance discontinued as can cause pancreatitis. He previously had a lot of nausea with metformin. He also should avoid GLP 1 agonist due to recurrent pancreatitis issues May need Lantus as an outpatient Follow-up with endocrinology as an outpatient #Anxiety/depression/PTSD-no acute issues Continue Abilify, trazodone, fluoxetine #RADHA/hypoxemia requiring 4L NC while sleeping-was previously on CPAP but claims he misplaced his ST card in the company removed the machine from his home He is snoring here and hypoxemic while sleeping after given opioids Order CPAP 10 cm H2O at bedtime and as needed naps while here Add incentive spirometry to encourage deep breathing to avoid further/worsening hypoxemia due to splinting/pain Walking desaturations did qualify for home oxygen 3 L may need to have pulmonary evaluation maximizes pulmonary mechanics and reduce as needed oxygen #Hypertension-BPs are controlled Discontinue lisinopril as can contribute to pancreatitis Monitor blood pressures at home for manage medication #Hypogonadotrophic hypogonadism home topical testosterone gel Follows with endocrinology CODE STATUS: Full code Notes For Next Care Provider Multiple medications have been discontinued at time of discharge. Likely will need to thoughtfully reacts to medications to help control blood pressure blood sugar (continue to reinforce lifestyle) Concern for oxygen need with exertion was fluid overloaded minimal response to diuretic therapy will continue to recommend perhaps pulmonary evaluation Admission HPI Per Admitting Provider Eleazar is a 44-year-old male with past medical history of prediabetes, hypertension, hyperlipidemia, GERD, COPD, anxiety, depression, RADHA on BiPAP, PTSD, tobacco use, testosterone replacement for hypogonadism who presents with LEFT sided abdominal pain Pain started this morning. Left upper and some LLQ tenderness to palpation. Much worse with meals. BMs brown, nothing light/allen colored. No blood/no black BMs. No vomiting, some pain with nausea. 8/10 pain at time of admission. Constant since this morning. No fevers or chills. No sweats No chest pain or shortness of breath History of recurrent pancreatitis, last episode was a year ago. Still has his gallbladder, no hx of stones/obstruction. Hx high HDL, not sure if he has high cholesteral No recent medication changes Did have a large amount of chicken wings last night, and a large amount of ham this morning Reviewed med list at the bedside. Took all morning medications Cigarette use, 1 pack per three days No ETOH use in the last 10 years. history of fatty liver disease from cholesterol NKMA Full Code Discharge Exam Awake alert appropriate Hypoxia is out of proportion to pulmonary mechanics lungs seem clear with good air movement no pursed lip breathing or respiratory distress Extremities are without edema Discharge Plan Discharge Items Patient Disposition: Home - Self-Care Reason For Visit: PANCREATITIS, SUSPECT HYPERTRIGLYCERIDEMIA INDUCED Discharge Diagnosis: necrotizing pancreatitis sleep apnea, exertional hypoxia Hypertriglyceridemia Activity: Resume your previous activity Non-emergency contact: Primary Care Provider Call non-emergency contact if: your symptoms worsen Follow-up/Referrals: David Moore MD [Physician] - 10/17/24 12:30 pm (At [place] [facility]) Daily Jansen DO [Primary Care Provider] - 10/02/24 10:30 am Diet: Low Fat Tracy Attending Provider Instructions: Overview The pancreas is an organ behind the stomach. It makes hormones and enzymes to help your body digest food. But if these enzymes attack the pancreas, it can get inflamed. This is called pancreatitis. Most cases are caused by gallstones or by heavy alcohol use. If you take care of yourself at home, it will help you get better. It will also help you avoid more problems with your pancreas. How can you care for yourself at home? Drink clear liquids and eat bland foods until you feel better. [place] foods include rice, dry toast, and crackers. They also include bananas and applesauce.Eat a low-fat diet until your doctor says your pancreas is healed.Do not drink alcohol. Tell your doctor if you need help to quit. Counselling, support groups, and sometimes medicines can help you stay sober.Be safe with medicines. Read and follow all instructions on the label. If the doctor gave you a prescription medicine for pain, take it as prescribed. If you are not taking a prescription pain medicine, ask your doctor if you can take an [id number] medicine.If your doctor prescribed antibiotics, take them as directed. Do not stop taking them just because you feel better. You need to take the full course of antibiotics.Get extra rest until you feel better. To prevent future problems with your pancreas Do not drink alcohol.Tell your doctors and pharmacist that you've had pancreatitis. They can help you avoid medicines that may cause this problem again. Tracy [employer] Provider Instructions: see your family doctor in a week for discussion of your triglyceride level Pending Studies at Discharge: No Stand-Alone Forms: My [employer], Smoking Cessation Medications and DC Order Prescriptions: New pantoprazole 40 mg Tablet,Delayed Release (Dr/Ec) 40 mg PO BID Qty: 60 3RF rosuvastatin 10 mg Tablet 10 mg PO QAM Qty: 30 3RF Continued albuterol sulfate 90 mcg/actuation HFA aerosol inhaler 2 puff inhalation Q6H PRN (Reason: shortness of breath or wheezing) Qty: 8.5 0RF gabapentin 300 mg capsule 300 mg PO BID 30 Days Qty: 180 1RF triamcinolone acetonide 0.025 % cream 1 applic topical BID PRN (Reason: skin irritation) Qty: 80 0RF Rx Instructions: USe BID on affected area for weeks. cyclobenzaprine 10 mg tablet 10 mg PO TID PRN (Reason: muscle spasm) Qty: 90 0RF hydroxyzine HCl 50 mg tablet 50 mg PO QPM fluoxetine [Prozac] 10 mg capsule 30 mg PO QAM cholecalciferol (vitamin D3) 50 mcg (2,000 unit) capsule 50 mcg PO QAM trazodone 50 mg tablet 100 mg PO QPM Rx Instructions: per psych report amlodipine 5 mg tablet 5 mg PO QAM montelukast [Singulair] 10 mg tablet 10 mg PO QAM tadalafil [Cialis] 5 mg tablet 5 mg PO DAILY PRN (Reason: Sexual Activity) fenofibrate 160 mg tablet 160 mg PO QPM aripiprazole [Abilify] 5 mg tablet 5 mg PO DAILY testosterone 20.25 mg/1.25 gram (1.62 %) gel in metered-dose pump 2 pump topical DAILY oxycodone 5 mg tablet 5 - 10 mg PO .[id number] MDD no more than 6 tabs in 24hours PRN (Reason: pain) Qty: 20 0RF Discontinued omeprazole 20 mg capsule,delayed release(DR/EC) 20 mg PO BID Qty: 180 2RF simvastatin 20 mg tablet 20 mg PO QAM Qty: 90 3RF lisinopril 20 mg tablet 20 mg PO QAM empagliflozin 25 mg tablet 25 mg PO QAM Discharge Orders: Discharge Order (Routine); Ordered 09/25/24 Ordered By: Alberto Luis/Other Patient Handouts: Managing Type 2 Diabetes, Healthy Meals for Diabetes, Understanding Pancreatitis, Anatomy of the Digestive System, Pancreatitis Acute Dc, ED Pancreatitis Admission Data Admit Date/Time: 09/19/24 19:51 Attending Provider: Alberto Goldstein Admit Provider: Andriy Gregory Primary Care Provider: Daily Jansen Other Providers: Andriy Gregory; Segundo Mireles Other Interventions: Discharge Summary Assessment (RN) Last Done: 09/25/24 13:08 Hospital Stay Data Consultations 09/19/24 18:18 ED Decision to Admit Stat 09/20/24 10:41 Consult Gastroenterology Routine Diagnostic Imagining Performed 09/19/24 16:10 CT abd pelvis IV con only Stat 09/20/24 06:30 CT abdomen w IV con Urgent 09/20/24 12:21 US abdomen limited Routine 09/22/24 15:51 MR abdomen wo/w con Urgent Pending Results Patient Have Any Pending Studies at Discharge: No Discharge Instructions Given to Patient (Per Discharging Provider) Overview The pancreas is an organ behind the stomach. It makes hormones and enzymes to help your body digest food. But if these enzymes attack the pancreas, it can get inflamed. This is called pancreatitis. Most cases are caused by gallstones or by heavy alcohol use. If you take care of yourself at home, it will help you get better. It will also help you avoid more problems with your pancreas. How can you care for yourself at home? Drink clear liquids and eat bland foods until you feel better. [place] foods include rice, dry toast, and crackers. They also include bananas and applesauce.Eat a low-fat diet until your doctor says your pancreas is healed.Do not drink alcohol. Tell your doctor if you need help to quit. Counselling, support groups, and sometimes medicines can help you stay sober.Be safe with medicines. Read and follow all instructions on the label. If the doctor gave you a prescription medicine for pain, take it as prescribed. If you are not taking a prescription pain medicine, ask your doctor if you can take an [id number] medicine.If your doctor prescribed antibiotics, take them as directed. Do not stop taking them just because you feel better. You need to take the full course of antibiotics.Get extra rest until you feel better. To prevent future problems with your pancreas Do not drink alcohol.Tell your doctors and pharmacist that you've had pancreatitis. They can help you avoid medicines that may cause this problem again. Total Time Total Time Spent Total Time Spent (In Minutes): It required greater than 30 minutes to prepare this patient for discharge. Coding Level of Care Code 45314 INP/OBS DISCH >30 MIN Diagnoses Pancreatitis K85.90 Hypertriglyceridemia E78.1 Diabetes mellitus, type 2 E11.9 Sleep apnea G47.30 HTN (hypertension) I10 COPD (chronic obstructive pulmonary disease) J44.9 Hx of hepatitis C Z86.19
== END 2024-09-25 16:00 | disposition home or self-care (01) | DRG 439 ==
LOC: SUATTDRO → ED 15:54 → 2S 19:51 → SUATTDRO 19:51 → 2S 21:17